=== PATIENT | female | born 1975 | race Caucasian/White ===

== ENCOUNTER 2016-10-05 17:58 | Emergency (ER) | payer MEDICARE ==
[2016-10-05 18:38] VITALS: BP 121/32
--- NOTE | 2016-10-05 19:18 | XRay Report ---
FINAL REPORT EXAM: XR HAND 3 RT HISTORY: finger 2,3,4 injury COMPARISONS: None. FINDINGS: Three views right hand No bone lesion, periosteal reaction, or fracture. No deformity or gross malalignment. There is soft tissue swelling in the index, middle and ring fingers of the right hand. No significant joint space abnormality. IMPRESSION: No displaced fracture in the right hand. Soft tissue swelling in the fingers of interest, as detailed above.
[2016-10-05] MEDS ORDERED: NORCO 5/325 PO ONE (21:12)
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
== END 2016-10-05 21:35 | disposition home or self-care (01) ==
LOC: ED 17:58
DX: S66.911A Strain of unspecified muscle, fascia and tendon at wrist and hand level, right hand, initial encounter (principal); S69.91XA Unspecified injury of right wrist, hand and finger(s), initial encounter; I10 Essential (primary) hypertension; E11.9 Type 2 diabetes mellitus without complications; I50.9 Heart failure, unspecified; J45.909 Unspecified asthma, uncomplicated; Z86.73 Personal history of transient ischemic attack (TIA), and cerebral infarction without residual deficits; F17.200 Nicotine dependence, unspecified, uncomplicated; Z91.040 Latex allergy status; Z88.8 Allergy status to other drugs, medicaments and biological substances; Z79.82 Long term (current) use of aspirin; X58.XXXA Exposure to other specified factors, initial encounter; Y93.89 Activity, other specified; Y99.8 Other external cause status; Y92.89 Other specified places as the place of occurrence of the external cause

== ENCOUNTER 2017-05-03 11:50 | Inpatient (IN) | payer MEDICARE ==
--- NOTE | 2017-05-03 12:43 | XRay Report ---
AP chest x-ray. History: Cough. Findings: The heart and lungs reveal no acute or significant abnormalities. Cardiac pacemaker is noted.
[2017-05-03 12:49] LABS: Hematocrit 42.7 % (30.3-42.9); Hemoglobin 14.4 gm/dl (10.1-14.3); Mean Corpuscular HGB Conc 34 % (30-34); Mean Corpuscular Hemoglobin 31 pg (28-32); Mean Corpuscular Volume 91 fl (79-97); Platelet Count 241 K/mm3 (140-440); Red Blood Count 4.68 M/mm3 (3.65-5.03); Red Cell Distribution Width 13.5 % (13.2-15.2); White Blood Count 13.3 K/mm3 (4.5-11.0)
[2017-05-03 12:53] LABS: Creatine Kinase MB 2.1 ng/mL (0.0-4.0)
[2017-05-03 12:55] LABS: Alanine Aminotransferase 37 units/L (7-56); Albumin 4.3 g/dL (3.9-5); Albumin/Globulin Ratio 1.4 %; Alkaline Phosphatase 65 units/L (35-129); Anion Gap 24 mmol/L; BUN/Creatinine Ratio 29; Blood Urea Nitrogen 44 mg/dL (7-17); Calcium 9.6 mg/dL (8.4-10.2); Carbon Dioxide 20 mmol/L (22-30); Chloride 93.5 mmol/L (98-107); Creatine Kinase 150 units/L (30-135); Glucose 132 mg/dL (65-100); Sodium 132 mmol/L (137-145); Total Protein 7.3 g/dL (6.3-8.2)
[2017-05-03 12:58] LABS: INR 0.95 (0.87-1.13)
[2017-05-03 12:59] LABS: Partial Thromboplastin Time 24.7 Sec. (24.2-36.6)
[2017-05-03] MEDS ORDERED: NACL 0.9% 500 ML 500 ML IV ONE (13:50)
[2017-05-03] MEDS ORDERED: ULTRAM PO ONE (13:50)
[2017-05-03 14:08] LABS: Basophils % (Manual) 0 % (0.0-1.8); Blastocytes % (Manual) 0 %; RBC Morphology Normal
[2017-05-03 14:09] LABS: Diff Status Complete
--- NOTE | 2017-05-03 14:36 | Emergency Department Report ---
- General Chief complaint: Weakness Stated complaint: LOW B/P Time Seen by Provider: 05/03/17 12:16 Source: patient, old records reviewed (cath 04/2016 dilated cardiomyopathy. EF 20-25%, coronary artery) Mode of arrival: Ambulatory Limitations: No Limitations - History of Present Illness Initial comments: 41-year-old female with a past medical history of asthma, COPD, CHF, CVA, diabetes, hypertension, dialated cardiomyopathy, AICD placement presents to the Hospital complains of low blood pressure. Patient is scheduled visit with her primary care doctor. Her blood pressure was in the 60s/40s in the office and patient complain of feeling lightheaded, fatigue and just wanting to go to sleep. Upon manual recheck there was no change the patient was sent to the ER for evaluation. Patient states she's been having fatigue for a day or 2. She complains of ongoing rectal pain secondary to chronic internal hemorrhoids and has been evaluated by GI. Yesterday patient developed a runny nose and a mild cough and developed a fever blister. No documented fever at home. Decreased appetite today but denies nausea, vomiting, diarrhea, or melena. Some mild bright red blood per rectum with bowel movements. 3 episodes of diarrhea for the last several days. Patient did take her blood pressure medication this morning. PMD: DR Hoffmann - Related Data Home Medications Medication Instructions Recorded Confirmed Last Taken Digoxin 250 mcg PO DAILY 12/21/13 03/13/17 04/19/16 .25mg Enalapril Maleate (Nf) 1 tab PO DAILY 10/29/14 03/13/17 04/20/16 08:00 10mg Carvedilol [Coreg] 25 mg PO BID 03/03/15 03/13/17 04/19/16 25mg Spironolactone [Aldactone] 50 mg PO QDAY 03/03/15 03/13/17 04/19/16 50mg Fenofibrate,Micronized 134 mg PO DAILY 04/20/16 03/13/17 04/19/16 [Fenofibrate] 134mg Torsemide 20 mg PO DAILY 04/20/16 03/13/17 04/19/16 20mg Previous Rx's Medication Instructions Recorded Last Taken Type ALBUTEROL Inhaler [ProAir HFA 2 puff IH QID PRN #1 inhalation 03/14/17 Unknown Rx Inhaler] Acetaminophen/Codeine [Tylenol 1 tab PO Q6H PRN #12 tab 03/14/17 Unknown Rx /Codeine # 3 tab] Azithromycin [Zithromax TAB] 250 mg PO QDAY #4 tablet 03/14/17 Unknown Rx Prednisone [predniSONE 5 mg (6-Day 5 mg PO .TAPER #1 tab.ds.pk 03/14/17 Unknown Rx Pack, 21 Tabs)] Rosuvastatin (Nf) [Crestor] 40 mg PO DAILY 30 Days tablet 03/14/17 Unknown Rx Allergies Allergy/AdvReac Type Severity Reaction Status Date / Time latex Allergy Hives Verified 05/16/15 01:08 naproxen sodium [From Aleve] Allergy Hives Verified 05/16/15 01:08 ED Review of Systems ROS: Stated complaint: LOW B/P Other details as noted in HPI Comment: All other systems reviewed and negative Other: Constitutional: as per hip Eyes: No eye pain visual changes ENT: No ear pain or throat pain Neck: Denies pain Respiratory: Denies wheezing shortness of breath Cardiovascular: Denies chest pain, palpitations, syncope GI: Denies abdominal pain, nausea, vomiting, diarrhea : Denies dysuria Musculoskeletal: Denies back pain Skin: Denies rash, lesions, erythema Neurologic: Denies headache, numbness, focal weakness Psychiatric: Denies suicidal ideation, hallucinations ED Past Medical Hx - Past Medical History Previous Medical History?: Yes Hx Hypertension: Yes (controlled with meds) Hx CVA: Yes Hx Heart Attack/AMI: No Hx Congestive Heart Failure: Yes Hx Diabetes: Yes Hx Deep Vein Thrombosis: No Hx Pulmonary Embolism: No Hx GERD: No Hx Liver Disease: No Hx Sickle Cell Disease: No Hx Arthritis: No Hx Headaches / Migraines: No Hx Seizures: No Hx Kidney Stones: No Hx Psychiatric Treatment: No Hx Asthma: Yes (no inhaler use) Hx COPD: No Hx Tuberculosis: No Hx Dementia: No Hx HIV: No Additional medical history: 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 pre- eclampsia - Surgical History Hx Coronary Stent: No Hx Open Heart Surgery: No Hx Pacemaker: Yes (2013. cardiomyapathy) Hx Internal Defibrillator: No Hx Cholecystectomy: No Hx Appendectomy: Yes Hx Breast Surgery: No Additional Surgical History: hysterectomy, AICD - Social History Smoking Status: Never Smoker - Medications Home Medications: Home Medications Medication Instructions Recorded Confirmed Last Taken Type Digoxin 250 mcg PO DAILY 12/21/13 03/13/17 04/19/16 History .25mg Enalapril Maleate (Nf) 1 tab PO DAILY 10/29/14 03/13/17 04/20/16 08:00 History 10mg Carvedilol [Coreg] 25 mg PO BID 03/03/15 03/13/17 04/19/16 History 25mg Spironolactone [Aldactone] 50 mg PO QDAY 03/03/15 03/13/17 04/19/16 History 50mg Fenofibrate,Micronized 134 mg PO DAILY 04/20/16 03/13/17 04/19/16 History [Fenofibrate] 134mg Torsemide 20 mg PO DAILY 04/20/16 03/13/17 04/19/16 History 20mg ALBUTEROL Inhaler [ProAir HFA 2 puff IH QID PRN #1 inhalation 03/14/17 Unknown Rx Inhaler] Acetaminophen/Codeine [Tylenol 1 tab PO Q6H PRN #12 tab 03/14/17 Unknown Rx /Codeine # 3 tab] Azithromycin [Zithromax TAB] 250 mg PO QDAY #4 tablet 03/14/17 Unknown Rx Prednisone [predniSONE 5 mg (6-Day 5 mg PO .TAPER #1 tab.ds.pk 03/14/17 Unknown Rx Pack, 21 Tabs)] Rosuvastatin (Nf) [Crestor] 40 mg PO DAILY 30 Days tablet 03/14/17 Unknown Rx ED Physical Exam - General Limitations: No Limitations - Other Other exam information: General: No limitations, patient is alert in no acute distress Head exam: Atraumatic, normocephalic Eyes exam: Normal appearance ENT: Moist mucous membrane, normal oropharynx Neck exam: Normal inspection, full range of motion, no meningismus nontender Respiratory exam: Clear to auscultation bilateral, no wheezes, rales, crackles Cardiovascular: Normal rate and rhythm, normal heart sounds Abdomen: Soft, nondistended, and nontender, with normal bowel sounds, no rebound, or guarding Extremity: Full range of motion normal inspection no deformity Back: Normal Inspection, full range of motion, no tenderness Neurologic: Alert, oriented x3, cranial nerves intact, no motor or sensory deficit Psychiatric: normal affect, normal mood Skin: Warm, dry, intact ED Course Vital Signs 12/15/17 11:57 Temperature 97.6 F Pulse Rate 84 Respiratory 18 Rate Blood Pressure 93/49 O2 Sat by Pulse 97 Oximetry - Reevaluation(s) Reevaluation #1: 05/03/17 14:41 Patient continues to be uncomfortable due to rectal pain. Tramadol ordered. Patient does have some renal sufficiency with dehydration. 5 mL fluid ordered at 200 mL per hour - Consultations Consultation #1: 05/03/17 14:[address] Hoffmann The patient's pressure was in the 60s and he office and she was very sleepy. Her rectal pain is chronic and she has had GI evaluation for pain with defecation. Patient states she has a diagnosis of internal hemorrhoids ED Medical Decision Making - Lab Data Result diagrams: 05/03/17 12:11 05/03/17 12:11 Lab Results 05/03/17 05/03/17 05/03/17 Range/Units 12:11 12:11 12:11 WBC 13.3 H (4.5-11.0) K/mm3 RBC 4.68 (3.65-5.03) M/mm3 Hgb 14.4 H (10.1-14.3) gm/dl Hct 42.7 (30.3-42.9) % MCV 91 (79-97) fl MCH 31 (28-32) pg MCHC 34 (30-34) % RDW 13.5 (13.2-15.2) % Plt Count 241 (140-440) K/mm3 Lymph # Facilities Maintenance Worker Add Manual Diff Complete Total Counted 100 Seg Neuts % (Manual) 69.0 (40.0-70.0) % Band Neutrophils % 0 % Lymphocytes % (Manual) 24.0 (13.4-35.0) % Reactive Lymphs % (Man) 0 % Monocytes % (Manual) 4.0 (0.0-7.3) % Eosinophils % (Manual) 3.0 (0.0-4.3) % Basophils % (Manual) 0 (0.0-1.8) % Metamyelocytes % 0 % Myelocytes % 0 % Promyelocytes % 0 % Blast Cells % 0 % Nucleated RBC % Not Reportable Seg Neutrophils # Man 9.2 H (1.8-7.7) K/mm3 Band Neutrophils # 0.0 K/mm3 Lymphocytes # (Manual) 3.2 (1.2-5.4) K/mm3 Abs React Lymphs (Man) 0.0 K/mm3 Monocytes # (Manual) 0.5 (0.0-0.8) K/mm3 Eosinophils # (Manual) 0.4 (0.0-0.4) K/mm3 Basophils # (Manual) 0.0 (0.0-0.1) K/mm3 Metamyelocytes # 0.0 K/mm3 Myelocytes # 0.0 K/mm3 Promyelocytes # 0.0 K/mm3 Blast Cells # 0.0 K/mm3 WBC Morphology Not Reportable Hypersegmented Neuts Not Reportable Hyposegmented Neuts Not Reportable Hypogranular Neuts Not Reportable Smudge Cells Not Reportable Toxic Granulation Not Reportable Toxic Vacuolation Not Reportable Dohle Bodies Not Reportable Pelger-Huet Anomaly Not Reportable Florin Rods Not Reportable Platelet Estimate Appears normal Clumped Platelets Not Reportable Plt Clumps, EDTA Not Reportable Large Platelets Not Reportable Giant Platelets Not Reportable Platelet Satelliting Not Reportable Plt Morphology Comment Not Reportable RBC Morphology Normal Dimorphic RBCs Not Reportable Polychromasia Not Reportable Hypochromasia Not Reportable Poikilocytosis Not Reportable Anisocytosis Not Reportable Microcytosis Not Reportable Macrocytosis Not Reportable Spherocytes Not Reportable Pappenheimer Bodies Not Reportable Sickle Cells Not Reportable Target Cells Not Reportable Tear Drop Cells Not Reportable Ovalocytes Not Reportable Helmet Cells Not Reportable Merlos-[place] Bodies Not Reportable [place] Rings Not Reportable Carla Cells Not Reportable Bite Cells Not Reportable Crenated Cell Not Reportable Elliptocytes Not Reportable Acanthocytes (Spur) Not Reportable Rouleaux Not Reportable Hemoglobin C Crystals Not Reportable Schistocytes Not Reportable Malaria parasites Not Reportable [place] Bodies Not Reportable Hem Pathologist Commnt No PT 13.2 (12.2-14.9) Sec. INR 0.95 (0.87-1.13) APTT 24.7 (24.2-36.6) Sec. VBG pH (7.320-7.420) Sodium 132 L (137-145) mmol/L Potassium 5.0 (3.6-5.0) mmol/L Chloride 93.5 L (98-107) mmol/L Carbon Dioxide 20 L (22-30) mmol/L Anion Gap 24 mmol/L BUN 44 H (7-17) mg/dL Creatinine 1.5 H (0.7-1.2) mg/dL Estimated GFR 39 ml/min BUN/Creatinine Ratio 29 % Glucose 132 H (65-100) mg/dL Lactic Acid (0.7-2.0) mmol/L Calcium 9.6 (8.4-10.2) mg/dL Total Bilirubin 0.50 (0.1-1.2) mg/dL AST 27 (5-40) units/L ALT 37 (7-56) units/L Alkaline Phosphatase 65 (35-129) units/L Total Creatine Kinase 150 H (30-135) units/L CK-MB (CK-2) 2.1 (0.0-4.0) ng/mL CK-MB (CK-2) Rel Index 1.4 (0-4) Troponin T < 0.010 (0.00-0.029) ng/mL Total Protein 7.3 (6.3-8.2) g/dL Albumin 4.3 (3.9-5) g/dL Albumin/Globulin Ratio 1.4 % Digoxin (0.9-2.0) ng/mL Blood Type Antibody Screen 05/03/17 05/03/17 05/03/17 Range/Units 12:11 12:11 12:23 WBC (4.5-11.0) K/mm3 RBC (3.65-5.03) M/mm3 Hgb (10.1-14.3) gm/dl Hct (30.3-42.9) % MCV (79-97) fl MCH (28-32) pg MCHC (30-34) % RDW (13.2-15.2) % Plt Count (140-440) K/mm3 Lymph # Add Manual Diff Total Counted Seg Neuts % (Manual) (40.0-70.0) % Band Neutrophils % % Lymphocytes % (Manual) (13.4-35.0) % Reactive Lymphs % (Man) % Monocytes % (Manual) (0.0-7.3) % Eosinophils % (Manual) (0.0-4.3) % Basophils % (Manual) (0.0-1.8) % Metamyelocytes % % Myelocytes % % Promyelocytes % % Blast Cells % % Nucleated RBC % Seg Neutrophils # Man (1.8-7.7) K/mm3 Band Neutrophils # K/mm3 Lymphocytes # (Manual) (1.2-5.4) K/mm3 Abs React Lymphs (Man) K/mm3 Monocytes # (Manual) (0.0-0.8) K/mm3 Eosinophils # (Manual) (0.0-0.4) K/mm3 Basophils # (Manual) (0.0-0.1) K/mm3 Metamyelocytes # K/mm3 Myelocytes # K/mm3 Promyelocytes # K/mm3 Blast Cells # K/mm3 WBC Morphology Hypersegmented Neuts Hyposegmented Neuts Hypogranular Neuts Smudge Cells Toxic Granulation Toxic Vacuolation Dohle Bodies Pelger-Huet Anomaly Florin Rods Platelet Estimate Clumped Platelets Plt Clumps, EDTA Large Platelets Giant Platelets Platelet Satelliting Plt Morphology Comment RBC Morphology Dimorphic RBCs Polychromasia Hypochromasia Poikilocytosis Anisocytosis Microcytosis Macrocytosis Spherocytes Pappenheimer Bodies Sickle Cells Target Cells Tear Drop Cells Ovalocytes Helmet Cells Merlos-[place] Bodies [place] Rings Carla Cells Bite Cells Crenated Cell Elliptocytes Acanthocytes (Spur) Rouleaux Hemoglobin C Crystals Schistocytes Malaria parasites [place]w Bodies Hem Pathologist Commnt PT (12.2-14.9) Sec. INR (0.87-1.13) APTT (24.2-36.6) Sec. VBG pH 7.397 (7.320-7.420) Sodium (137-145) mmol/L Potassium (3.6-5.0) mmol/L Chloride (98-107) mmol/L Carbon Dioxide (22-30) mmol/L Anion Gap mmol/L BUN (7-17) mg/dL Creatinine (0.7-1.2) mg/dL Estimated GFR ml/min BUN/Creatinine Ratio % Glucose (65-100) mg/dL Lactic Acid 1.70 (0.7-2.0) mmol/L Calcium (8.4-10.2) mg/dL Total Bilirubin (0.1-1.2) mg/dL AST (5-40) units/L ALT (7-56) units/L Alkaline Phosphatase (35-129) units/L Total Creatine Kinase (30-135) units/L CK-MB (CK-2) (0.0-4.0) ng/mL CK-MB (CK-2) Rel Index (0-4) Troponin T (0.00-0.029) ng/mL Total Protein (6.3-8.2) g/dL Albumin (3.9-5) g/dL Albumin/Globulin Ratio % Digoxin 1.9 (0.9-2.0) ng/mL Blood Type Antibody Screen 05/03/17 Range/Units 12:23 WBC (4.5-11.0) K/mm3 RBC (3.65-5.03) M/mm3 Hgb (10.1-14.3) gm/dl Hct (30.3-42.9) % MCV (79-97) fl MCH (28-32) pg MCHC (30-34) % RDW (13.2-15.2) % Plt Count (140-440) K/mm3 Lymph # Add Manual Diff Total Counted Seg Neuts % (Manual) (40.0-70.0) % Band Neutrophils % % Lymphocytes % (Manual) (13.4-35.0) % Reactive Lymphs % (Man) % Monocytes % (Manual) (0.0-7.3) % Eosinophils % (Manual) (0.0-4.3) % Basophils % (Manual) (0.0-1.8) % Metamyelocytes % % Myelocytes % % Promyelocytes % % Blast Cells % % Nucleated RBC % Seg Neutrophils # Man (1.8-7.7) K/mm3 Band Neutrophils # K/mm3 Lymphocytes # (Manual) (1.2-5.4) K/mm3 Abs React Lymphs (Man) K/mm3 Monocytes # (Manual) (0.0-0.8) K/mm3 Eosinophils # (Manual) (0.0-0.4) K/mm3 Basophils # (Manual) (0.0-0.1) K/mm3 Metamyelocytes # K/mm3 Myelocytes # K/mm3 Promyelocytes # K/mm3 Blast Cells # K/mm3 WBC Morphology Hypersegmented Neuts Hyposegmented Neuts Hypogranular Neuts Smudge Cells Toxic Granulation Toxic Vacuolation Dohle Bodies Pelger-Huet Anomaly Florin Rods Platelet Estimate Clumped Platelets Plt Clumps, EDTA Large Platelets Giant Platelets Platelet Satelliting Plt Morphology Comment RBC Morphology Dimorphic RBCs Polychromasia Hypochromasia Poikilocytosis Anisocytosis Microcytosis Macrocytosis Spherocytes Pappenheimer Bodies Sickle Cells Target Cells Tear Drop Cells Ovalocytes Helmet Cells Merlos-[place] Bodies [place] Rings Carla Cells Bite Cells Crenated Cell Elliptocytes Acanthocytes (Spur) Rouleaux Hemoglobin C Crystals Schistocytes Malaria parasites [place]w Bodies Hem Pathologist Commnt PT (12.2-14.9) Sec. INR (0.87-1.13) APTT (24.2-36.6) Sec. VBG pH (7.320-7.420) Sodium (137-145) mmol/L Potassium (3.6-5.0) mmol/L Chloride (98-107) mmol/L Carbon Dioxide (22-30) mmol/L Anion Gap mmol/L BUN (7-17) mg/dL Creatinine (0.7-1.2) mg/dL Estimated GFR ml/min BUN/Creatinine Ratio % Glucose (65-100) mg/dL Lactic Acid (0.7-2.0) mmol/L Calcium (8.4-10.2) mg/dL Total Bilirubin (0.1-1.2) mg/dL AST (5-40) units/L ALT (7-56) units/L Alkaline Phosphatase (35-129) units/L Total Creatine Kinase (30-135) units/L CK-MB (CK-2) (0.0-4.0) ng/mL CK-MB (CK-2) Rel Index (0-4) Troponin T (0.00-0.029) ng/mL Total Protein (6.3-8.2) g/dL Albumin (3.9-5) g/dL Albumin/Globulin Ratio % Digoxin (0.9-2.0) ng/mL Blood Type A POSITIVE Antibody Screen Negative - EKG Data -: EKG Interpreted by Me (atraial sensed vent pacer rhythm ) EKG shows normal: sinus rhythm, axis (-47), QRS complexes (174), ST-T waves (no stemi/t inv) - EKG Data When compared to previous EKG there are: no significant change - Radiology Data Radiology results: report reviewed Chest x-ray: Heart and lungs no acute findings. Cardiac pacemaker is noted - Medical Decision Making Cause of hypotension unknown. Plan to admit patient to the hospital for gentle hydration given a history of diabetic cardiomyopathy with poor ejection fraction Case discussed with patient's primary care provider - Differential Diagnosis sepsis, heart failure, anemia, dehydration Critical Care Time: No Critical care attestation.: If time is entered above; I have spent that time in minutes in the direct care of this critically ill patient, excluding procedure time. ED Disposition Clinical Impression: Hypotension, Dilated cardiomyopathy, AICD (automatic cardioverter/defibrillator ) present, Acute renal insufficiency, Renal insufficiency Disposition: 09 OP ADMIT IP TO THIS HOSP Is pt being admited?: Yes Condition: Stable Time of Disposition: 14:58 (dr montgomery/hosp)
[2017-05-03 16:09] LABS: Bacteria,Urine 1+ /HPF (Negative); Bilirubin,Urine NEG (Negative); Blood,Urine NEG (Negative); Ketones,Urine NEG (Negative); Leukocyte Esterase,Urine NEG (Negative); Mucus,Urine FEW /HPF; Nitrite,Urine NEG (Negative); Protein,Urine <15 mg/dL mg/dL (Negative); Urobilinogen,Urine < 2.0 mg/dL (<2.0)
[2017-05-03] MEDS ORDERED: MORPHINE ONE (18:29)
[2017-05-03] MEDS ORDERED: MORPHINE IV ONE (18:32)
[2017-05-03] MEDS ORDERED: TYLENOL PO PRN (18:59)
[2017-05-03] MEDS ORDERED: DULCOLAX PR PRN (18:59)
[2017-05-03] MEDS ORDERED: MILK OF MAGNESIA PO PRN (18:59)
--- NOTE | 2017-05-03 18:59 | History and Physical Report ---
History of Present Illness Date of examination: 05/03/17 Date of admission: 05/03/17 14:59 Chief complaint: CC Feels weak and Light headed since AM History of present illness: ANDREAFSKI :41 y/o female with HTN and cardiomypopathy comes in for feeling Light headed.Patient was found to have low BP in 60's No SOB. No fever or chills.Compliant with Meds. Past History Past Medical History: heart failure, hypertension, hyperlipidemia Past Surgical History: Other (Pacemaker and AICD) Social history: no significant social history, full code Medications and Allergies Allergies Allergy/AdvReac Type Severity Reaction Status Date / Time latex Allergy Hives Verified 05/16/15 01:08 naproxen sodium [From Aleve] Allergy Hives Verified 05/16/15 01:08 Home Medications Medication Instructions Recorded Confirmed Last Taken Type Digoxin 250 mcg PO DAILY 12/21/13 05/03/17 05/03/17 History Enalapril Maleate (Nf) 1 tab PO DAILY 10/29/14 05/03/17 05/03/17 History Carvedilol [Coreg] 25 mg PO BID 03/03/15 05/03/17 05/03/17 History Spironolactone [Aldactone] 50 mg PO QDAY 03/03/15 05/03/17 05/03/17 History Fenofibrate,Micronized 134 mg PO DAILY 04/20/16 05/03/17 05/03/17 History [Fenofibrate] Torsemide 20 mg PO DAILY 04/20/16 05/03/17 05/03/17 History ALBUTEROL Inhaler [ProAir HFA 2 puff IH QID PRN #1 inhalation 03/14/17 05/03/17 05/03/17 Rx Inhaler] Acetaminophen/Codeine [Tylenol 1 tab PO Q6H PRN #12 tab 03/14/17 05/03/17 Unknown Rx /Codeine # 3 tab] Prednisone [predniSONE 5 mg (6-Day 5 mg PO .TAPER #1 tab.ds.pk 03/14/1705/03/17 Rx Pack, 21 Tabs)] Rosuvastatin (Nf) [Crestor] 40 mg PO DAILY 30 Days tablet 03/14/17 05/03/17 Rx Review of Systems All systems: negative Exam - Constitutional Vitals: Temp Pulse Resp BP Pulse Ox 97.6 F 73 11 L 82/43 92 05/03/17 11:57 05/03/17 16:30 05/03/17 16:30 05/03/17 16:30 05/03/17 16:30 General appearance: Present: no acute distress, mild distress, well-nourished - EENT Eyes: Present: PERRL ENT: hearing intact, clear oral mucosa - Neck Neck: Present: supple, normal ROM - Respiratory Respiratory effort: normal Respiratory: bilateral: CTA - Cardiovascular Heart Sounds: Present: S1 & S2. Absent: rub, click - Extremities Extremities: pulses symmetrical, No edema Peripheral Pulses: within normal limits - Abdominal General gastrointestinal: Present: soft, non-tender, non-distended, normal bowel sounds Female genitourinary: Present: normal - Integumentary Integumentary: Present: clear, warm, dry - Musculoskeletal Musculoskeletal: gait normal, strength equal bilaterally - Psychiatric Psychiatric: appropriate mood/affect, intact judgment & insight - Neurologic Neurologic: CNII-XII intact, moves all extremities Results - Labs CBC & Chem 7: 05/04/17 04:27 05/04/17 04:27 Labs: Laboratory Last Values WBC 13.3 K/mm3 (4.5-11.0) H 05/03/17 12:11 RBC 4.68 M/mm3 (3.65-5.03) 05/03/17 12:11 Hgb 14.4 gm/dl (10.1-14.3) H 05/03/17 12:11 Hct 42.7 % (30.3-42.9) 05/03/17 12:11 MCV 91 fl (79-97) 05/03/17 12:11 MCH 31 pg (28-32) 05/03/17 12:11 MCHC 34 % (30-34) 05/03/17 12:11 RDW 13.5 % (13.2-15.2) 05/03/17 12:11 Plt Count 241 K/mm3 (140-440) 05/03/17 12:11 Lymph # Lapel Padder Blindstitch 05/03/17 12:11 Add Manual Diff Complete 05/03/17 12:11 Total Counted 100 05/03/17 12:11 Seg Neuts % (Manual) 69.0 % (40.0-70.0) 05/03/17 12:11 Band Neutrophils % 0 % 05/03/17 12:11 Lymphocytes % (Manual) 24.0 % (13.4-35.0) 05/03/17 12:11 Reactive Lymphs % (Man) 0 % 05/03/17 12:11 Monocytes % (Manual) 4.0 % (0.0-7.3) 05/03/17 12:11 Eosinophils % (Manual) 3.0 % (0.0-4.3) 05/03/17 12:11 Basophils % (Manual) 0 % (0.0-1.8) 05/03/17 12:11 Metamyelocytes % 0 % 05/03/17 12:11 Myelocytes % 0 % 05/03/17 12:11 Promyelocytes % 0 % 05/03/17 12:11 Blast Cells % 0 % 05/03/17 12:11 Nucleated RBC % Not Reportable 05/03/17 12:11 Seg Neutrophils # Man 9.2 K/mm3 (1.8-7.7) H 05/03/17 12:11 Band Neutrophils # 0.0 K/mm3 05/03/17 12:11 Lymphocytes # (Manual) 3.2 K/mm3 (1.2-5.4) 05/03/17 12:11 Abs React Lymphs (Man) 0.0 K/mm3 05/03/17 12:11 Monocytes # (Manual) 0.5 K/mm3 (0.0-0.8) 05/03/17 12:11 Eosinophils # (Manual) 0.4 K/mm3 (0.0-0.4) 05/03/17 12:11 Basophils # (Manual) 0.0 K/mm3 (0.0-0.1) 05/03/17 12:11 Metamyelocytes # 0.0 K/mm3 05/03/17 12:11 Myelocytes # 0.0 K/mm3 05/03/17 12:11 Promyelocytes # 0.0 K/mm3 05/03/17 12:11 Blast Cells # 0.0 K/mm3 05/03/17 12:11 WBC Morphology Not Reportable 05/03/17 12:11 Hypersegmented Neuts Not Reportable 05/03/17 12:11 Hyposegmented Neuts Not Reportable 05/03/17 12:11 Hypogranular Neuts Not Reportable 05/03/17 12:11 Smudge Cells Not Reportable 05/03/17 12:11 Toxic Granulation Not Reportable 05/03/17 12:11 Toxic Vacuolation Not Reportable 05/03/17 12:11 Dohle Bodies Not Reportable 05/03/17 12:11 Pelger-Huet Anomaly Not Reportable 05/03/17 12:11 Florin Rods Not Reportable 05/03/17 12:11 Platelet Estimate Appears normal 05/03/17 12:11 Clumped Platelets Not Reportable 05/03/17 12:11 Plt Clumps, EDTA Not Reportable 05/03/17 12:11 Large Platelets Not Reportable 05/03/17 12:11 Giant Platelets Not Reportable 05/03/17 12:11 Platelet Satelliting Not Reportable 05/03/17 12:11 Plt Morphology Comment Not Reportable 05/03/17 12:11 RBC Morphology Normal 05/03/17 12:11 Dimorphic RBCs Not Reportable 05/03/17 12:11 Polychromasia Not Reportable 05/03/17 12:11 Hypochromasia Not Reportable 05/03/17 12:11 Poikilocytosis Not Reportable 05/03/17 12:11 Anisocytosis Not Reportable 05/03/17 12:11 Microcytosis Not Reportable 05/03/17 12:11 Macrocytosis Not Reportable 05/03/17 12:11 Spherocytes Not Reportable 05/03/17 12:11 Pappenheimer Bodies Not Reportable 05/03/17 12:11 Sickle Cells Not Reportable 05/03/17 12:11 Target Cells Not Reportable 05/03/17 12:11 Tear Drop Cells Not Reportable 05/03/17 12:11 Ovalocytes Not Reportable 05/03/17 12:11 Helmet Cells Not Reportable 05/03/17 12:11 Merlos-Topton Bodies Not Reportable 05/03/17 12:11 [place] Rings Not Reportable 05/03/17 12:11 Carla Cells Not Reportable 05/03/17 12:11 Bite Cells Not Reportable 05/03/17 12:11 Crenated Cell Not Reportable 05/03/17 12:11 Elliptocytes Not Reportable 05/03/17 12:11 Acanthocytes (Spur) Not Reportable 05/03/17 12:11 Rouleaux Not Reportable 05/03/17 12:11 Hemoglobin C Crystals Not Reportable 05/03/17 12:11 Schistocytes Not Reportable 05/03/17 12:11 Malaria parasites Not Reportable 05/03/17 12:11 Getachew Bodies Not Reportable 05/03/17 12:11 Hem Pathologist Commnt No 05/03/17 12:11 PT 13.2 Sec. (12.2-14.9) 05/03/17 12:11 INR 0.95 (0.87-1.13) 05/03/17 12:11 APTT 24.7 Sec. (24.2-36.6) 05/03/17 12:11 VBG pH 7.397 (7.320-7.420) 05/03/17 12:11 Sodium 132 mmol/L (137-145) L 05/03/17 12:11 Potassium 5.0 mmol/L (3.6-5.0) 05/03/17 12:11 Chloride 93.5 mmol/L (98-107) L 05/03/17 12:11 Carbon Dioxide 20 mmol/L (22-30) L 05/03/17 12:11 Anion Gap 24 mmol/L 05/03/17 12:11 BUN 44 mg/dL (7-17) H 05/03/17 12:11 Creatinine 1.5 mg/dL (0.7-1.2) H 05/03/17 12:11 Estimated GFR 39 ml/min 05/03/17 12:11 BUN/Creatinine Ratio 29 % 05/03/17 12:11 Glucose 132 mg/dL (65-100) H 05/03/17 12:11 Lactic Acid 1.50 mmol/L (0.7-2.0) 05/03/17 14:35 Calcium 9.6 mg/dL (8.4-10.2) 05/03/17 12:11 Total Bilirubin 0.50 mg/dL (0.1-1.2) 05/03/17 12:11 AST 27 units/L (5-40) 05/03/17 12:11 ALT 37 units/L (7-56) 05/03/17 12:11 Alkaline Phosphatase 65 units/L (35-129) 05/03/17 12:11 Total Creatine Kinase 150 units/L (30-135) H 05/03/17 12:11 CK-MB (CK-2) 2.1 ng/mL (0.0-4.0) 05/03/17 12:11 CK-MB (CK-2) Rel Index 1.4 (0-4) 05/03/17 12:11 Troponin T < 0.010 ng/mL (0.00-0.029) 05/03/17 12:11 Total Protein 7.3 g/dL (6.3-8.2) 05/03/17 12:11 Albumin 4.3 g/dL (3.9-5) 05/03/17 12:11 Albumin/Globulin Ratio 1.4 % 05/03/17 12:11 Urine Color Yellow (Yellow) 05/03/17 15:58 Urine Turbidity Clear (Clear) 05/03/17 15:58 Urine pH 5.0 (5.0-7.0) 05/03/17 15:58 Ur Specific [place] 1.010 (1.003-1.030) 05/03/17 15:58 Urine Protein <15 mg/dl mg/dL (Negative) 05/03/17 15:58 Urine Glucose (UA) Neg mg/dL (Negative) 05/03/17 15:58 Urine Ketones Neg mg/dL (Negative) 05/03/17 15:58 Urine Blood Neg (Negative) 05/03/17 15:58 Urine Nitrite Neg (Negative) 05/03/17 15:58 Urine Bilirubin Neg (Negative) 05/03/17 15:58 Urine Urobilinogen < 2.0 mg/dL (<2.0) 05/03/17 15:58 Ur Leukocyte Esterase Neg (Negative) 05/03/17 15:58 Urine WBC (Auto) 2.0 /HPF (0.0-6.0) 05/03/17 15:58 Urine RBC (Auto) 2.0 /HPF (0.0-6.0) 05/03/17 15:58 U Epithel Cells (Auto) 6.0 /HPF (0-13.0) 05/03/17 15:58 Urine Bacteria (Auto) 1+ /HPF (Negative) 05/03/17 15:58 Urine Mucus Few /HPF 05/03/17 15:58 Digoxin 1.9 ng/mL (0.9-2.0) 05/03/17 12:23 Blood Type A POSITIVE 05/03/17 12:23 Antibody Screen Negative 05/03/17 12:23 - Imaging and Cardiology EKG: report reviewed Chest x-ray: report reviewed Assessment and Plan Advance Directives: Yes (Full code) VTE prophylaxis?: Chemical Plan of care discussed with patient/family: Yes - Patient Problems (1) Hypotension Current Visit: Yes Status: Acute Qualifiers: Hypotension type: hypotension due to drug Qualified Code(s): I95.2 - Hypotension due to drugs Plan to address problem: Will hold antihypertensives (2) JERI (acute kidney injury) Current Visit: Yes Status: Acute Plan to address problem: Neph consult (3) Dilated cardiomyopathy Current Visit: Yes Status: Chronic Plan to address problem: Cont Lasix ECHO (4) T2DM (type 2 diabetes mellitus) Current Visit: Yes Status: Acute Qualifiers: Diabetes mellitus complication status: without complication Plan to address problem: New onset A1c 9.4 Initiated on Glimepride (5) DVT prophylaxis Current Visit: Yes Status: Acute Plan to address problem: Lovenox
[2017-05-03] MEDS ORDERED: NACL 0.9% 1000 ML 1,000 ML IV SCH (19:00)
[2017-05-03] MEDS ORDERED: PERCOCET 5/325 PO PRN (19:00)
[2017-05-03] MEDS: PEPCID PO SCH (21:38)
[2017-05-04] MEDS ORDERED: TYLENOL #3 PO PRN (05:33)
[2017-05-04] MEDS ORDERED: PROAIR IH PRN (05:33)
[2017-05-04 05:43] LABS: Basophils % (Auto) 0.3 % (0.0-1.8); Eosinophils % (Auto) 2.5 % (0.0-4.3); Hematocrit 38.5 % (30.3-42.9); Hemoglobin 13.1 gm/dl (10.1-14.3); Mean Corpuscular HGB Conc 34 % (30-34); Mean Corpuscular Hemoglobin 31 pg (28-32); Mean Corpuscular Volume 91 fl (79-97); Platelet Count 193 K/mm3 (140-440); Red Blood Count 4.23 M/mm3 (3.65-5.03); Red Cell Distribution Width 13.3 % (13.2-15.2); White Blood Count 8.6 K/mm3 (4.5-11.0)
[2017-05-04 06:04] LABS: Albumin 3.9 g/dL (3.9-5); Albumin/Globulin Ratio 1.7 %; Bilirubin,Total 0.4 mg/dL (0.1-1.2); Calcium 8.6 mg/dL (8.4-10.2); Chloride 99.8 mmol/L (98-107); Potassium 4.5 mmol/L (3.6-5.0); Total Protein 6.2 g/dL (6.3-8.2)
[2017-05-04] MEDS: ZOFRAN IV PRN ×2 (07:40→23:26)
[2017-05-04] MEDS ORDERED: PROVENTIL IH PRN (08:00)
[2017-05-04] MEDS ORDERED: ALDACTONE PO SCH (10:00)
[2017-05-04] MEDS ORDERED: ZESTRIL PO SCH (10:00)
[2017-05-04] MEDS: DEMADEX PO SCH (10:11)
[2017-05-04] MEDS: COREG PO SCH ×2 (10:12→21:41)
[2017-05-04] MEDS: TRICOR PO SCH (10:12)
[2017-05-04] MEDS: PEPCID PO SCH ×2 (10:13→21:44)
[2017-05-04] MEDS: MORPHINE IV PRN ×3 (10:26→23:26)
[2017-05-04] MEDS: AMARYL PO SCH (10:26)
[2017-05-04] MEDS ORDERED: Fluarix Quad 2017-2018(36 MOS+ IM ONE (12:00)
--- NOTE | 2017-05-04 13:12 | Progress Note ---
Assessment and Plan / Hypotension BP now improved restarted antihypertensives, will readjust dose if BP cont to drop will obtain 2d echo /JERI (acute kidney injury) Neph consulted, Cr was 0.7 on 03/05 may need to hols diuretics if renal function gets worse /Dilated cardiomyopathy Cont diuretics, will follow ECHO /T2DM (type 2 diabetes mellitus) New onset A1c 9.4 Initiated on Glimepride /Morbid obesity dietary and exercise counselling done /DVT prophylaxis Lovenox Physical exam: General appearance: Present: no acute distress, morbidli obese - EENT Eyes: Present: PERRL ENT: hearing intact, clear oral mucosa - Neck Neck: Present: supple, normal ROM - Respiratory Respiratory effort: normal Respiratory: bilateral: CTA - Cardiovascular Heart Sounds: Present: S1 & S2. Absent: rub, click - Extremities Extremities: pulses symmetrical, No edema Peripheral Pulses: within normal limits - Abdominal General gastrointestinal: Present: soft, non-tender, non-distended, normal bowel sounds Female genitourinary: Present: normal - Integumentary Integumentary: Present: clear, warm, dry - Musculoskeletal Musculoskeletal: gait normal, strength equal bilaterally - Psychiatric Psychiatric: appropriate mood/affect, intact judgment & insight - Neurologic Neurologic: CNII-XII intact, moves all extremities Subjective Date of service: 05/04/17 Objective - Constitutional Vitals: Vital Signs - 12hr 05/04/17 05/04/17 05/04/17 04:24 10:12 10:13 Temperature 98.0 F Pulse Rate 85 81 81 Respiratory 19 Rate Blood Pressure 77/29 126/65 126/65 O2 Sat by Pulse 97 Oximetry 05/04/17 05/04/17 10:30 13:05 Temperature Pulse Rate 81 Respiratory Rate Blood Pressure O2 Sat by Pulse 98 Oximetry - Labs CBC & Chem 7: 05/04/17 04:27 05/04/17 04:27 Labs: Abnormal lab results 05/03/17 05/03/17 05/03/17 Range/Units 12:11 12:11 20:39 Gregory % (Auto) (0.0-7.3) % Seg Neutrophils # Man 9.2 H (1.8-7.7) K/mm3 BUN (7-17) mg/dL Creatinine (0.7-1.2) mg/dL Glucose (65-100) mg/dL POC Glucose 203 H (70-105) Hemoglobin A1c 9.4 H (4-6) % Total Protein (6.3-8.2) g/dL 05/04/17 05/04/17 Range/Units 04:27 04:27 Gregory % (Auto) 9.3 H (0.0-7.3) % Seg Neutrophils # Man (1.8-7.7) K/mm3 BUN 43 H (7-17) mg/dL Creatinine 1.5 H (0.7-1.2) mg/dL Glucose 209 H (65-100) mg/dL POC Glucose (70-105) Hemoglobin A1c (4-6) % Total Protein 6.2 L (6.3-8.2) g/dL
[2017-05-04] MEDS: LANOXIN PO SCH (17:55)
[2017-05-04] MEDS: NOVOLOG SUB-Q SCH ×2 (17:58→21:47)
[2017-05-04] MEDS: LOVENOX SUB-Q SCH (21:44)
[2017-05-05] MEDS: NOVOLOG SUB-Q SCH ×4 (08:17→21:49)
[2017-05-05] MEDS: AMARYL PO SCH (08:38)
[2017-05-05] MEDS: DEMADEX PO SCH (11:11)
[2017-05-05] MEDS: PEPCID PO SCH ×2 (11:12→21:47)
[2017-05-05] MEDS: TRICOR PO SCH (11:12)
[2017-05-05] MEDS: COREG PO SCH ×2 (11:13→21:47)
[2017-05-05] MEDS: MORPHINE IV PRN ×2 (11:28→19:05)
[2017-05-05] MEDS: ZOFRAN IV PRN (11:29)
[2017-05-05 13:05] LABS: Chloride 95.6 mmol/L (98-107); Potassium 4.8 mmol/L (3.6-5.0)
--- NOTE | 2017-05-05 15:27 | Progress Note ---
Assessment and Plan / Hypotension restarted antihypertensives, BP this am 2d echo showed Ef 40-45% reduced the dose of coreg and aldectone d/c torsemide and lisinopril check dogoxin level /JERI (acute kidney injury) presented with cr of 1.5, Cr was 0.7 on 03/05 may need to hold diuretics if renal function gets worse Cr much improved today /Dilated cardiomyopathy Cont diuretics, 40-455 Ef on 2d ECHO /T2DM (type 2 diabetes mellitus) New onset A1c 9.4 Initiated on Glimepride and SSI /Morbid obesity dietary and exercise counselling done /DVT prophylaxis Lovenox Brief History: 41 y/o female with HTN and cardiomypopathy comes in for feeling Light headed. Patient was found to have low BP at 60's Physical exam: General appearance: Present: no acute distress, morbidly obese - EENT Eyes: Present: PERRL ENT: hearing intact, clear oral mucosa - Neck Neck: Present: supple, normal ROM - Respiratory Respiratory effort: normal Respiratory: bilateral: CTA - Cardiovascular Heart Sounds: Present: S1 & S2. Absent: rub, click - Extremities Extremities: pulses symmetrical, No edema Peripheral Pulses: within normal limits - Abdominal General gastrointestinal: Present: soft, non-tender, non-distended, normal bowel sounds Female genitourinary: Present: normal - Integumentary Integumentary: Present: clear, warm, dry - Musculoskeletal Musculoskeletal: gait normal, strength equal bilaterally - Psychiatric Psychiatric: appropriate mood/affect, intact judgment & insight - Neurologic Neurologic: CNII-XII intact, moves all extremities Subjective Date of service: 05/05/17 Interval history: Pt seen and examined BP this am discussed with Dr Vidales denies any chest pain. c/o lightheadedness Objective - Constitutional Vitals: Vital Signs - 12hr 05/05/17 05/05/17 05/05/17 05:15 07:45 11:13 Temperature 98.2 F Pulse Rate 95 H 81 Respiratory 25 H Rate Blood Pressure 99/51 O2 Sat by Pulse 94 99 Oximetry - Labs CBC & Chem 7: 05/04/17 04:27 05/05/17 11:59 Labs: Abnormal lab results 05/04/17 05/04/17 05/04/17 Range/Units 08:26 12:13 17:10 Sodium (137-145) mmol/L Chloride (98-107) mmol/L BUN (7-17) mg/dL Glucose (65-100) mg/dL POC Glucose 218 H 249 H 323 H (70-105) 05/04/17 05/05/17 Range/Units 21:47 11:59 Sodium 136 L (137-145) mmol/L Chloride 95.6 L (98-107) mmol/L BUN 34 H (7-17) mg/dL Glucose 283 H (65-100) mg/dL POC Glucose 233 H (70-105)
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
[2017-05-05] MEDS: LANOXIN PO SCH (18:58)
[2017-05-05] MEDS: ALDACTONE PO SCH (19:00)
[2017-05-05] MEDS: LOVENOX SUB-Q SCH (21:47)
[2017-05-06] MEDS: ZOFRAN IV PRN ×2 (03:00→16:21)
[2017-05-06] MEDS: MORPHINE IV PRN ×3 (03:00→23:29)
[2017-05-06 06:08] LABS: Calcium 8.7 mg/dL (8.4-10.2); Chloride 94.9 mmol/L (98-107); Potassium 4.7 mmol/L (3.6-5.0)
[2017-05-06] MEDS: AMARYL PO SCH (08:33)
[2017-05-06] MEDS: NOVOLOG SUB-Q SCH ×5 (08:33→23:21)
--- NOTE | 2017-05-06 09:03 | Progress Note ---
Assessment and Plan - Hypotension Adjusted antihypertensives per cardiology rec. BP this am 105/56 2d echo showed Ef 40-45% reduced the dose of coreg and aldectone d/c torsemide and lisinopril - Nause and vomiting unknown etiology. normal digoxin level. iv Zofran ordered - JERI (acute kidney injury) presented with cr of 1.5, Cr today 05/06 is nl at 1.2 may need to hold diuretics if renal function gets worse - Dilated cardiomyopathy Cont diuretics, 40-45% Ef on 2d ECHO - T2DM (type 2 diabetes mellitus) New onset A1c 9.4 Initiated on Glimeperide and SSI. will still hold metformin b/c recently elevate Cr - Morbid obesity dietary and exercise counselling done - DVT prophylaxis Lovenox Dispositon: D/c home if no more vomiitng Subjective Date of service: 05/06/17 Principal diagnosis: Hypotension, Systolic heart failure Interval history: c/o nausea and vomiting. 4-5 last night. still nauseated thia morning. discussed with pt's nurse. No overnight event reported. Reviewed cardiology consult notes. Objective - Constitutional Vitals: Vital Signs - 12hr 05/05/17 05/05/17 05/05/17 21:30 21:47 23:51 Temperature Pulse Rate 70 Respiratory Rate Blood Pressure 100/44 O2 Sat by Pulse 97 Oximetry 05/06/17 05/06/17 05/06/17 00:03 04:43 07:39 Temperature 97.9 F 98.2 F Pulse Rate 82 Respiratory 20 20 Rate Blood Pressure 104/51 102/56 O2 Sat by Pulse 99 97 Oximetry General appearance: Present: no acute distress, well-nourished - EENT Eyes: PERRL, EOM intact - Neck Neck: supple, normal ROM - Respiratory Respiratory effort: normal Respiratory: bilateral: CTA - Cardiovascular Rhythm: regular Heart Sounds: Present: S1 & S2. Absent: gallop, rub Extremities: pulses intact, No edema, normal color, Full ROM - Gastrointestinal General gastrointestinal: Present: soft, non-tender, non-distended, normal bowel sounds - Integumentary Integumentary: clear, warm, dry - Musculoskeletal Musculoskeletal: 1, strength equal bilaterally - Neurologic Neurologic: moves all extremities - Psychiatric Psychiatric: memory intact, appropriate mood/affect, intact judgment & insight - Labs CBC & Chem 7: 05/04/17 04:27 05/06/17 04:48 Labs: Abnormal lab results 05/05/17 05/05/17 05/05/17 Range/Units 08:13 11:59 12:13 Sodium 136 L (137-145) mmol/L Chloride 95.6 L (98-107) mmol/L BUN 34 H (7-17) mg/dL Glucose 283 H (65-100) mg/dL POC Glucose 202 H 270 H (70-105) 05/05/17 05/05/17 05/06/17 Range/Units 17:14 20:55 04:48 Sodium 136 L (137-145) mmol/L Chloride 94.9 L (98-107) mmol/L BUN 30 H (7-17) mg/dL Glucose 240 H (65-100) mg/dL POC Glucose 284 H 285 H (70-105) 05/06/17 Range/Units 08:19 Sodium (137-145) mmol/L Chloride (98-107) mmol/L BUN (7-17) mg/dL Glucose (65-100) mg/dL POC Glucose 200 H (70-105)
[2017-05-06] MEDS: COREG PO SCH ×2 (10:11→23:32)
[2017-05-06] MEDS: PEPCID PO SCH (10:11)
[2017-05-06] MEDS: TRICOR PO SCH (10:12)
[2017-05-06] MEDS: ALDACTONE PO SCH (10:12)
--- NOTE | 2017-05-06 14:52 | Vascular Lab Report ---
CAROTID DUPLEX STUDY: RIGHT PSVEDV CCA PROX:[id number] CCA DIST:[id number] ICA PROX:9625 ICA MID:[id number] ICA DIST:9027 ECA: 9912 VERT: 55 14 LEFT PSVEDV CCA PROX:[id number] CCA DIST:65357 ICA PROX:9127 ICA MID:33043 ICA DIST:9134 ECA: 49799 VERT: 71 20 REASON FOR EXAM: Lightheaded and dizzy. COMMENTS ON THE RIGHT: Patient has a high bifurcation. Doppler frequency analysis is consistent with less than 50% diameter reduction of the internal carotid artery. Minimal amount of plaque is seen. The common carotid artery is patent. The external carotid artery is patent. The vertebral artery has antegrade flow. COMMENTS ON THE LEFT: Patient has a high bifurcation. Doppler frequency analysis is consistent with less than 50% diameter reduction of the internal carotid artery. Minimal amount of plaque is seen. The common carotid artery is patent. The external carotid artery is patent. The vertebral artery has antegrade flow. IMPRESSION: Less than 50% diameter reduction in the internal carotid arteries bilaterally. Consider repeat carotid artery duplex in 12 months.
[2017-05-06] MEDS: LANOXIN PO SCH (16:16)
[2017-05-06] MEDS ORDERED: ZOFRAN IV PRN (21:49)
[2017-05-06] MEDS ORDERED: REGLAN IV PRN (21:49)
[2017-05-06] MEDS ORDERED: PROTONIX IV SCH (22:00)
[2017-05-06] MEDS: LOVENOX SUB-Q SCH (23:23)
[2017-05-07] MEDS: AMARYL PO SCH (09:42)
[2017-05-07] MEDS: ALDACTONE PO SCH (09:43)
[2017-05-07] MEDS: TRICOR PO SCH (09:43)
[2017-05-07] MEDS: NOVOLOG SUB-Q SCH ×2 (09:43→13:23)
[2017-05-07 09:44] VITALS: BP 124/64
[2017-05-07] MEDS ORDERED: COREG PO SCH (10:00)
[2017-05-07] MEDS ORDERED: PROTONIX PO SCH (10:00)
--- NOTE | 2017-05-07 11:20 | Discharge Summary ---
Providers - Providers Date of Admission: 05/03/17 14:59 Attending physician: XAVIER NUÑEZ MD 05/05/17 11:30 Consult to Physician [CONS] Routine Consulting Provider: MIGUELINA BRANDT Reason For Exam: CHF Place consult to:: Dr. Brandt Notified:: Rahul BANDA Phone number called:: Was contact made?: Yes If yes, spoke with:: [facility] service Time called:: 14:24 Primary care physician: DRY PASTE SUPERVISOR Hospitalization Condition: Stable Hospital course: 41 y/o female with HTN and cardiomypopathy comes in for feeling Light headed.Patient was found to have low BP in 60's No SOB. His hypotension was thought to be due to polypharmacy. Therefore his diuretics and BP medications were discontinued. The patient clinically improved he went on to have an echocardiogram that showed a reduced EF of 40%. He received cardiology consultation. His diuretics were held after which his kidney function improved. He was started on oral medications for treatment of type 2 diabetes. His medications optimized and he was subsequently discharged. Discharge diagnoses Hypotension due to polypharmacy Nausea and vomiting Acute kidney injury due to ATN Dilated cardiomyopathy, chronic systolic CHF Type 2 diabetes Morbid obesity Disposition: DC-01 TO HOME OR SELFCARE Time spent for discharge: 33 minutes Core Measure Documentation - Palliative Care Palliative Care/ Comfort Measures: Not Applicable - Core Measures Any of the following diagnoses?: none Exam - Constitutional Vitals: Temp Pulse Resp BP Pulse Ox 98.3 F 78 19 124/64 98 05/07/17 05:23 05/07/17 09:42 05/07/17 05:23 05/07/17 09:42 05/07/17 09:16 General appearance: Present: no acute distress, well-nourished - EENT Eyes: Present: PERRL ENT: hearing intact, clear oral mucosa - Neck Neck: Present: supple, normal ROM - Respiratory Respiratory effort: normal Respiratory: bilateral: CTA - Cardiovascular Heart Sounds: Present: S1 & S2. Absent: rub, click - Extremities Extremities: pulses symmetrical, No edema Peripheral Pulses: within normal limits - Abdominal General gastrointestinal: Present: soft, non-tender, non-distended, normal bowel sounds Female genitourinary: Present: normal - Integumentary Integumentary: Present: clear, warm, dry - Musculoskeletal Musculoskeletal: gait normal, strength equal bilaterally - Psychiatric Psychiatric: appropriate mood/affect, intact judgment & insight - Neurologic Neurologic: CNII-XII intact, moves all extremities Plan Additional Instructions: please see your Primary care doctor within a week and have your blood tests, which are Basic Metabolic Panel and Digoxin level Follow up with: PRIMARY CARE, [Primary Care Provider] - 7 Days Prescriptions: Acetaminophen/Codeine [Tylenol /Codeine # 3 tab] 1 tab PO Q6H PRN #12 tab PRN Reason: Pain , Severe (7-10) Carvedilol [Coreg] 25 mg PO BID #60 tablet Digoxin [Lanoxin] 0.125 mg PO DAILY #30 tablet Glimepiride [Amaryl] 2 mg PO QDDIAB #60 tablet Spironolactone [Aldactone] 25 mg PO QDAY #30 tablet
--- NOTE | 2017-05-14 13:56 | Query- Dyspnea ---
Deatommie Michel Brando Date:____05/14/17 Ordnance Artificer/CDS: Marizol / Romulo Phone#:___[phone] Exercise your independent professional judgment when responding to query. Questions asked do not imply a particular answer is desired or expected. We greatly appreciate your clarification on this issue. Clinical Documentation States: 41 year old female was admitted on 05/03/17 The discharge summary (Dr. Michaels) states " 41 y/o female with HTN and cardiomypopathy comes in for feeling Light headed.Patient was found to have low BP in 60's No SOB. No fever or chills.Compliant with Meds. - Hypotension - Dilated cardiomyopathy - Nause and vomiting - JERI (acute kidney injury) " Clinical Findings Show: Respiratory rate: 31 Pulse OX: 78% O2 Flow rate: 3 L/min Please clarify if the patient had any of the following conditions based on the above clinical findings: [ ] Respiratory Failure [x ] Acute [ ] Acute on Chronic [ ] Chronic [ ] Respiratory failure due to trauma [ ] Acute Respiratory Distress Syndrome [ ] Other: [ ] Unable to determine [ ] Comment/Explanation: Present on Admission: [x ] Yes (Y) [ ] Clinically undeterminable (W) [ ] No (N) Please also document response in your Progress Notes and/or Discharge Summary and indicate if the condition was present on admission. ALLY
== END 2017-05-07 13:45 | disposition home or self-care (01) | DRG 682 ==
LOC: ED 11:50 → 4A 14:59
PROVIDERS: ADMIT Internal Medicine; ATTEND Internal Medicine
PROC: 3E0234Z Introduction of Serum, Toxoid and Vaccine into Muscle, Percutaneous Approach (ICD-10-PCS; principal; 2017-05-04)
DX: N17.0 Acute kidney failure with tubular necrosis (principal); J96.00 Acute respiratory failure, unspecified whether with hypoxia or hypercapnia; I42.0 Dilated cardiomyopathy; Z68.43 Body mass index [BMI] 50.0-59.9, adult; I50.20 Unspecified systolic (congestive) heart failure; I95.2 Hypotension due to drugs; E66.01 Morbid (severe) obesity due to excess calories; E11.9 Type 2 diabetes mellitus without complications; E78.5 Hyperlipidemia, unspecified; F32.9 Major depressive disorder, single episode, unspecified; J45.909 Unspecified asthma, uncomplicated; I11.0 Hypertensive heart disease with heart failure; F17.210 Nicotine dependence, cigarettes, uncomplicated; Z88.8 Allergy status to other drugs, medicaments and biological substances; Z91.040 Latex allergy status; Z95.810 Presence of automatic (implantable) cardiac defibrillator; Z23 Encounter for immunization; Z86.73 Personal history of transient ischemic attack (TIA), and cerebral infarction without residual deficits; Z90.49 Acquired absence of other specified parts of digestive tract; Z90.710 Acquired absence of both cervix and uterus; Z83.3 Family history of diabetes mellitus
CPT/HCPCS: 36415; 71010; 80048; 80053; 80162; 81001; 82140; 82550; 82553; 82805; 82962; 83036; 84484; 85007; 85025; 85610; 85730; 86850; 86900; 86901; 87040; 87086; 90686; 93005; 93010; 93306; 93880; 94760; 96374; A9270-GY; C9113; J1650; J1815; J2270; J2405; J7030; J7040

== ENCOUNTER 2017-06-14 11:00 | Outpatient (CLI) | payer MEDICARE | END 2017-06-14 11:01 | disposition home or self-care (01) | LOC: SLR 11:00 | PROVIDERS: ATTEND Internal Medicine | DX: G47.30 Sleep apnea, unspecified (principal); E11.9 Type 2 diabetes mellitus without complications; E78.5 Hyperlipidemia, unspecified; J45.909 Unspecified asthma, uncomplicated; E66.9 Obesity, unspecified | CPT/HCPCS: 95810 ==

== ENCOUNTER 2017-06-17 18:39 | Emergency (ER) | payer MEDICARE ==
[2017-06-17 18:49] VITALS: BP 141/63
[2017-06-17] MEDS ORDERED: DUONEB *Not for PRN Use IH ONE (19:59)
--- NOTE | 2017-06-17 20:12 | XRay Report ---
FINAL REPORT PROCEDURE: XR CHEST ROUTINE 2V TECHNIQUE: PA and lateral chest radiographs were obtained. CPT 83964 HISTORY: Shortness of breath COMPARISON: No prior studies are available for comparison. FINDINGS: Heart: Mild cardiomegaly is noted.. Mediastinum/Vessels: Normal. Lungs/Pleural space: Normal. Bony thorax: No acute osseous abnormality. Other: A tripolar cardiac device is noted on the left side with its leads in place. IMPRESSION: No acute pulmonary process. Mild cardiomegaly..
[2017-06-17 20:18] LABS: Basophils % (Auto) 0.4 % (0.0-1.8); Eosinophils # (Auto) 0.2 K/mm3 (0.0-0.4); Eosinophils % (Auto) 1.8 % (0.0-4.3); Hematocrit 43.3 % (30.3-42.9); Hemoglobin 14.9 gm/dl (10.1-14.3); Lymphocytes # (Auto) 4.2 K/mm3 (1.2-5.4); Lymphocytes % (Auto) 38.7 % (13.4-35.0); Mean Corpuscular HGB Conc 34 % (30-34); Mean Corpuscular Hemoglobin 31 pg (28-32); Mean Corpuscular Volume 92 fl (79-97); Monocytes # (Auto) 0.7 K/mm3 (0.0-0.8); Monocytes % (Auto) 6.2 % (0.0-7.3); Platelet Count 281 K/mm3 (140-440); Red Blood Count 4.73 M/mm3 (3.65-5.03); Red Cell Distribution Width 13.3 % (13.2-15.2)
[2017-06-17 20:35] LABS: Calcium 9.5 mg/dL (8.4-10.2)
== END 2017-06-17 23:00 | disposition left against medical advice (07) ==
LOC: ED 18:39
DX: R06.09 Other forms of dyspnea (principal); Z53.21 Procedure and treatment not carried out due to patient leaving prior to being seen by health care provider
CPT/HCPCS: 36415; 71046; 80048; 85025; 93005; 93010; 94640

== ENCOUNTER 2017-07-11 08:08 | Day surgery (SDC) | payer MEDICARE ==
[2017-07-11 09:08] LABS: Hematocrit 41.1 % (30.3-42.9); Mean Corpuscular HGB Conc 34 % (30-34); Mean Corpuscular Hemoglobin 31 pg (28-32); Mean Corpuscular Volume 90 fl (79-97); Platelet Count 237 K/mm3 (140-440); Red Blood Count 4.57 M/mm3 (3.65-5.03); Red Cell Distribution Width 13.3 % (13.2-15.2)
[2017-07-11 09:28] LABS: BUN/Creatinine Ratio 33; Blood Urea Nitrogen 33 mg/dL (7-17); Hemolysis Index 4
[2017-07-11] MEDS ORDERED: MARCAINE 0.5% 60 ML INFILTRATI ONE (09:39)
[2017-07-11] MEDS ORDERED: NACL 0.9% 500 ML IR ONE (09:39)
[2017-07-11] MEDS ORDERED: ANCEF/STERILE WATER 2 GM/20 ML 2 GM/20 ML SYRINGE IV ONE (09:40)
[2017-07-11 09:50] LABS: INR 0.88 (0.87-1.13); Partial Thromboplastin Time 26.3 Sec. (24.2-36.6)
[2017-07-11] MEDS ORDERED: DIPRIVAN 10 MG/ML IV ONE ×2 (09:57)
[2017-07-11] MEDS ORDERED: SUBLIMAZE ONE (09:57)
[2017-07-11] MEDS ORDERED: VERSED IV ONE (09:58)
[2017-07-11] MEDS ORDERED: NACL 0.45% 1000 ML 1,000 ML IV SCH (10:00)
[2017-07-11] MEDS ORDERED: NACL 0.9% 1,000 ML, VANCOMYCIN VIAL 1,000 MG IR NR (10:00)
[2017-07-11] MEDS ORDERED: XYLOCAINE MPF 2% ONE (10:00)
[2017-07-11] MEDS ORDERED: KETALAR ONE (10:14)
[2017-07-11] MEDS: XYLOCAINE 1% 20 mL ONE ×2 (10:43→10:49)
[2017-07-11] MEDS ORDERED: XYLOCAINE 2% INFILTRATI ONE (10:49)
[2017-07-11 11:16] LABS: Platelet Estimate Cons; RBC Morphology Normal; Total Cells Counted 100
--- NOTE | 2017-07-11 11:28 | Anesthesia Day of Surgery ---
Anesthesia Day of Surgery - Day of Surgery Patient Examined: Yes Patient H&P Reviewed: Yes Patient is NPO: Yes
--- NOTE | 2017-07-11 11:32 | Anesthesia Consultation ---
Anesthesia Consult and Med Hx Date of service: 07/11/17 - Airway Anesthetic Teeth Evaluation: Good ROM Head & Neck: Adequate Mental/Hyoid Distance: Adequate Mallampati Class: Class III Intubation Access Assessment: Possibly Difficult - Pulmonary Exam CTA: Yes - Cardiac Exam Cardiac Exam: RRR - Pre-Operative Health Status ASA Pre-Surgery Classification: ASA3 Proposed Anesthetic Plan: MAC - Pulmonary Hx Smoking: Yes (5 to 6cigs/day) Hx Asthma: Yes (no inhaler use) SOB: No COPD: No Hx Pneumonia: Yes (2009) Hx Sleep Apnea: Yes - Cardiovascular System Hx Hypertension: Yes Hx Coronary Artery Disease: No (dilated cardiomyopathy EF 40-45%) Hx Heart Attack/AMI: No Hx Angina: No Hx Pacemaker: Yes (AICD 05/2008, here fore a generator change today) Hx Internal Defibrillator: Yes Hx Valvular Heart Disease: Yes (mild to moderate TR and ) Hx Peripheral Vascular Disease: No - Central Nervous System Hx Neuromuscular Disorder: No Hx Seizures: No CVA: Yes (2015) Hx Psychiatric Problems: Yes (major depression) - Gastrointestinal Hx Gastroesophageal Reflux Disease: No - Endocrine Hx End Stage Renal Disease: No Hx Liver Disease: No Hx Non-Insulin Dependent Diabetes: Yes (BS-129) Hx Thyroid Disease: No - Hematic Hx Anemia: No Hx Sickle Cell Disease: No - Other Systems Hx Cancer: No Hx Obesity: Yes (morbid obesity)
[2017-07-11] MEDS ORDERED: DUONEB *Not for PRN Use IH ONE ×2 (12:44→12:45)
[2017-07-11] MEDS ORDERED: D50W (25GM) Syringe IV PRN (13:13)
--- NOTE | 2017-07-11 13:38 | Post Anesthesia Evaluation ---
- Post Anesthesia Evaluation Patient Participated: Yes Airway Patent: Yes Stable Respiratory Function: Yes Nausea/Vomiting: No Temp > 96.8F: Yes Pain Manageable: Yes Adequeate Hydration: Yes Anesthesia Complications: No
[2017-07-11] MEDS ORDERED: NOVOLOG SUB-Q SCH (14:00)
[2017-07-11 14:05] VITALS: BP 92/58
== END 2017-07-11 14:25 | disposition home or self-care (01) ==
LOC: CR 08:08 → CATHLABREC 08:08
PROVIDERS: ATTEND Internal Medicine Cardiovascular Disease
DX: I42.0 Dilated cardiomyopathy (principal); I10 Essential (primary) hypertension; J45.909 Unspecified asthma, uncomplicated; G47.30 Sleep apnea, unspecified; F32.9 Major depressive disorder, single episode, unspecified; E66.01 Morbid (severe) obesity due to excess calories; E11.9 Type 2 diabetes mellitus without complications; E78.5 Hyperlipidemia, unspecified; F17.210 Nicotine dependence, cigarettes, uncomplicated; Z68.43 Body mass index [BMI] 50.0-59.9, adult; Z86.73 Personal history of transient ischemic attack (TIA), and cerebral infarction without residual deficits; Z79.899 Other long term (current) drug therapy; Z79.01 Long term (current) use of anticoagulants; Z88.8 Allergy status to other drugs, medicaments and biological substances; Z91.040 Latex allergy status; Z79.82 Long term (current) use of aspirin
CPT/HCPCS: 33264; 36415; 80048; 82962; 85007; 85025; 85610; 85730; 93005; 93010; 94640; 96372; C1882; J0690; J2250; J2704; J3010; J3370; J1815

== ENCOUNTER 2017-10-30 08:37 | Day surgery (SDC) | payer MEDICARE ==
[2017-10-30] MEDS ORDERED: NACL 0.9% 1000 ML 1,000 ML ONE (09:32)
[2017-10-30] MEDS ORDERED: NACL 0.9% 1000 ML 1,000 ML IV SCH (11:00)
--- NOTE | 2017-10-30 11:21 | Anesthesia Day of Surgery ---
Anesthesia Day of Surgery - Day of Surgery Patient Examined: Yes Patient H&P Reviewed: Yes Patient is NPO: Yes Beta Blockers: No Cardiac Clearance: No Pulmonary Clearance: No
[2017-10-30] MEDS ORDERED: VERSED ONE (11:22)
--- NOTE | 2017-10-30 11:22 | Anesthesia Consultation ---
Anesthesia Consult and Med Hx - Airway Anesthetic Teeth Evaluation: Good ROM Head & Neck: Adequate Mental/Hyoid Distance: Adequate Mallampati Class: Class II Intubation Access Assessment: Probably Good - Pulmonary Exam CTA: Yes - Cardiac Exam Cardiac Exam: No Murmur - Pre-Operative Health Status ASA Pre-Surgery Classification: ASA3 Proposed Anesthetic Plan: MAC - Pulmonary Hx Smoking: Yes (5 to 6cigs/day) Hx Asthma: Yes (no inhaler use) SOB: No COPD: No Hx Pneumonia: Yes (2009) Hx Sleep Apnea: Yes - Cardiovascular System Hx Hypertension: Yes Hx Coronary Artery Disease: No (dilated cardiomyopathy EF 40-45%) Hx Heart Attack/AMI: No Hx Angina: No Hx Pacemaker: Yes (AICD 05/2008, here fore a generator change today) Hx Internal Defibrillator: Yes Hx Valvular Heart Disease: Yes (mild to moderate TR and ) Hx Peripheral Vascular Disease: No - Central Nervous System Hx Neuromuscular Disorder: No Hx Seizures: No CVA: Yes (2015) Hx Psychiatric Problems: Yes (major depression) - Gastrointestinal Hx Gastroesophageal Reflux Disease: No - Endocrine Hx End Stage Renal Disease: No Hx Liver Disease: No Hx Insulin Dependent Diabetes: Yes (sw=713) Hx Non-Insulin Dependent Diabetes: Yes (BS-129) Hx Thyroid Disease: No - Hematic Hx Anemia: No Hx Sickle Cell Disease: No - Other Systems Hx Cancer: No Hx Obesity: Yes (morbid obesity)
[2017-10-30] MEDS ORDERED: DIPRIVAN 10 MG/ML IV ONE (11:23)
[2017-10-30] MEDS ORDERED: XYLOCAINE 2% INFILTRATI ONE (11:27)
[2017-10-30] MEDS ORDERED: XYLOCAINE TOPICAL 2% 5ML ONE (11:41)
--- NOTE | 2017-10-30 12:01 | Post Operative Note ---
Pre-op diagnosis: rectal pain, change in bowel habits, hematochezia Post-op diagnosis: same (moderate sized internal hemorrhoids s/p banding. 2 small colon polyps removed, few small tics) Findings: 1. Two small colon polyps removed with biopsy forceps 2. Few small tics 3. Internal hemorrhoids s/p banding Procedure: 1. Colonoscopy with banding of hemorrhoids and biopsy Anesthesia: MAC Surgeon: CANDIDA IBARRA Estimated blood loss: minimal Pathology: list (Jar A - descending colon polyps) Specimen disposition: to lab Condition: stable Disposition: same day
--- NOTE | 2017-10-30 12:04 | Operative Report ---
Operative Report Operative Report: Colonoscopy Procedure Note with Banding of hemorrhoids and Biopsy Date of procedure: 10/30/2017 Endoscopist: Gene Alvarado Pre-op diagnosis: rectal pain, hematochezia, change in bowel habits Post-op diagnosis: internal hemorrhoids s/p banding, small colon polyps, few small tics Anesthesia: MAC Complications: No immediate complications Estimated blood loss: minimal Procedure: After consent was obtained, the patient was placed in the left lateral decubitus position. The fujinon colonoscope was inserted into the patient's rectum under direct vision, and advanced to the cecum without difficulty. The patient tolerated the procedure well. The views of the mucosa were good. The quality of prep was good. The patient's vital signs were monitored continuously throughout the procedure. Findings: There were two polyps (~2 mm in size) in the descending colon. The polyps were removed with cold forceps biopsy and retrieved. There were a couple small diverticula in the left side of the colon. Small-moderate sized internal hemorrhoids. Two bands were placed successfully. Impression: 1. Internal hemorrhoids s/p banding 2. Small colon polyps removed with cold forceps biopsy 3. Mild diverticulosis Recommendations: -high fiber diet daily -follow-up pathology -hemorrhoidal cream prn -follow-up in GI clinic in 1 month -surveillance colonoscopy based on pathology results
[2017-10-30 13:30] VITALS: BP 117/54
[2017-10-30] MEDS ORDERED: NEO SYNEPHRINE/NS Syringe(OR USE) IV ONE (13:50)
== END 2017-10-30 08:38 | disposition home or self-care (01) ==
LOC: GIO 08:37
PROVIDERS: ATTEND Internal Medicine Gastroenterology
DX: K63.5 Polyp of colon (principal); K57.30 Diverticulosis of large intestine without perforation or abscess without bleeding; K64.8 Other hemorrhoids; K92.1 Melena; K59.00 Constipation, unspecified; J45.909 Unspecified asthma, uncomplicated; I10 Essential (primary) hypertension; I42.0 Dilated cardiomyopathy; F32.9 Major depressive disorder, single episode, unspecified; E11.9 Type 2 diabetes mellitus without complications; E66.01 Morbid (severe) obesity due to excess calories; G47.33 Obstructive sleep apnea (adult) (pediatric); F17.210 Nicotine dependence, cigarettes, uncomplicated; Z88.8 Allergy status to other drugs, medicaments and biological substances; Z86.73 Personal history of transient ischemic attack (TIA), and cerebral infarction without residual deficits; Z79.899 Other long term (current) drug therapy; Z95.810 Presence of automatic (implantable) cardiac defibrillator; Z91.040 Latex allergy status
CPT/HCPCS: 45380; 45398; 82962; 88305; J2250; J2370; J2704; J7030

== ENCOUNTER 2018-05-15 06:43 | Emergency (ER) | payer MEDICARE ==
[2018-05-15] MEDS ORDERED: DUONEB *Not for PRN Use IH ONE (07:28)
--- NOTE | 2018-05-15 07:53 | XRay Report ---
ROUTINE CHEST, TWO VIEWS: HISTORY: Difficulty in breathing. A 3-lead cardiac device appears unchanged in position. Heart size and pulmonary vasculature are within normal limits. The lungs are clear. No evidence for pneumonia, CHF or pneumothorax. The bony structures are within normal limits. No change is identified since 02/03/18. IMPRESSION: No acute cardiopulmonary process.
[2018-05-15] MEDS ORDERED: DELTASONE PO ONE (08:19)
--- NOTE | 2018-05-15 08:26 | Emergency Department Report ---
HPI - General Chief Complaint: Adult Asthma Time Seen by Provider: 05/15/18 08:13 - HPI HPI: 42-year-old female presents to the emergency department with complaint of developing a mixed dry and productive cough with coughing fits since last night. This is contributing any sleep. She also has some shortness of breath and wheezing intermittently. She used her nebulizer treatment at home with some relief of the shortness of breath and wheezing and nothing has helped the cough. She denies any fever, chest pain. No recent travel or sick contacts at home. She has a primary care physician for follow-up. She has a possible history of asthma, CHF, CVA, diabetes, hypertension and has a AICD in place. ED Past Medical Hx - Past Medical History Previous Medical History?: Yes Hx Hypertension: Yes Hx CVA: Yes Hx Heart Attack/AMI: No Hx Congestive Heart Failure: Yes Hx Diabetes: Yes Hx Deep Vein Thrombosis: No Hx Pulmonary Embolism: No Hx GERD: No Hx Liver Disease: No Hx Sickle Cell Disease: No Hx Arthritis: No Hx Headaches / Migraines: No Hx Seizures: No Hx Kidney Stones: No Hx Psychiatric Treatment: No Hx Asthma: Yes Hx COPD: No Hx Tuberculosis: No Hx Dementia: No Hx HIV: No Additional medical history: 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 pre-ecla mpsia - Surgical History Past Surgical History?: Yes Hx Coronary Stent: No Hx Open Heart Surgery: No Hx Pacemaker: Yes (AICD 05/2008, here fore a generator change today) Hx Internal Defibrillator: Yes Hx Cholecystectomy: No Hx Appendectomy: Yes Hx Breast Surgery: No Additional Surgical History: hysterectomy, AICD - Social History Smoking Status: Current Every Day Smoker Substance Use Type: None - Medications Home Medications: Home Medications Medication Instructions Recorded Confirmed Last Taken Type RX: Fenofibrate,Micronized 134 mg PO DAILY 04/20/16 02/04/18 02/03/18 History [Fenofibrate] RX: Insulin Regular, Human 20 unit SUB-Q TID 06/19/17 02/04/18 02/03/18 History [Humulin R] RX: Insulin Degludec [Tresiba 34 unit SQ QPM 02/04/18 02/04/18 02/03/18 History Flextouch U-100] Ipratropium [Atrovent] 0.5 mg IH Q4HR #30 ml 02/08/18 Unknown Rx RX: Aspirin 325 mg PO DAILY #30 tablet 02/08/18 Unknown Rx RX: Carvedilol [Coreg] 25 mg PO BID #60 tablet 02/08/18 Unknown Rx RX: Digoxin [Lanoxin] 0.125 mg PO DAILY #30 tablet 02/08/18 Unknown Rx RX: Enalapril Maleate [Vasotec] 10 mg PO DAILY #30 tablet 02/08/18 Unknown Rx RX: Fenofibrate [Tricor] 145 mg PO DAILY tablet 02/08/18 Unknown Rx RX: Potassium Chloride [K-Dur] 10 meq PO QDAY #30 tablet 02/08/18 Unknown Rx RX: Rosuvastatin (Nf) [Crestor] 40 mg PO DAILY 30 Days tablet 02/08/18 Unknown Rx RX: Spironolactone [Aldactone] 25 mg PO QDAY tablet 02/08/18 Unknown Rx RX: Spironolactone [Aldactone] 25 mg PO QDAY #30 tablet 02/08/18 Unknown Rx RX: Torsemide [Demadex] 20 mg PO DAILY #30 tablet 02/08/18 Unknown Rx RX: cephALEXin [Keflex] 500 mg PO Q12HR #16 cap 02/08/18 Unknown Rx RX: oxyCODONE /ACETAMINOPHEN 1 tab PO Q6H PRN #8 tablet 02/08/18 Unknown Rx [Percocet 5/325 mg] methylPREDNISolone [Medrol] 4 mg PO QAM #1 tab.ds.pk 02/08/18 Unknown Rx RX: Benzonatate [Tessalon Perles] 100 mg PO Q6HR PRN #20 capsule 05/15/18 Unknown Rx RX: predniSONE [Deltasone] 20 mg PO BID #10 tab 05/15/18 Unknown Rx guaiFENesin/CODEINE [Robitussin AC] 5 ml PO Q4H PRN #100 ml 05/15/18 Unknown Rx ED Review of Systems ROS: Stated complaint: SOB ASTHMA COUGH HEADACE Other details as noted in HPI Comment: All other systems reviewed and negative Constitutional: denies: chills, fever Eyes: denies: eye pain, eye discharge, vision change ENT: denies: ear pain, throat pain Respiratory: cough, shortness of breath, wheezing Cardiovascular: denies: chest pain, edema Gastrointestinal: denies: abdominal pain, vomiting Genitourinary: denies: dysuria, discharge Musculoskeletal: denies: back pain, arthralgia Skin: denies: rash, lesions Neurological: denies: weakness, numbness Physical Exam - Physical Exam Vital Signs: Vital Signs 05/15/18 06:51 Pulse Rate 83 Physical Exam: GENERAL: The patient is well-developed well-nourished. HEENT: Normocephalic. Atraumatic. Patient has moist mucous membranes. EYES: Extraocular motions are intact. Pupils are equal and reactive to light bilaterally. NECK: Supple. Trachea is midline. CHEST/LUNGS: Mild to moderate wheezing throughout the chest. No tachypnea or accessory muscle use. There is a productive sounding cough heard during examination. There is no respiratory distress noted. HEART/CARDIOVASCULAR: Regular. There is no tachycardia. There is no obvious murmur. ABDOMEN: Abdomen is soft, nontender. Patient has normal bowel sounds. Morbidly obese habitus. SKIN: Skin is warm and dry. NEURO: The patient is awake, alert, and oriented. The patient is cooperative. The patient has no focal neurologic deficits. The patient has normal speech. MUSCULOSKELETAL: There is no tenderness or deformity. There is no limitation range of motion. There is no evidence of acute injury. ED Course Vital Signs 05/15/18 06:51 Pulse Rate 83 ED Medical Decision Making - Lab Data Result diagrams: 05/15/18 09:54 05/15/18 09:51 - EKG Data -: EKG Interpreted by Me - EKG Data When compared to previous EKG there are: no significant change Interpretation: unchanged when compared t (02/10/18), other (atrial sensed ventricular paced at 90 bpm, left axis deviation, prolonged QTC) - Radiology Data Radiology results: image reviewed interpreted by me: Chest x-ray does not show any pneumothorax, pleural effusion, pneumonia or obvious focal consolidation. - Medical Decision Making This patient has a history of both asthma and COPD, among other comorbidities. She presents mostly with a complaint of a cough with coughing fits that is keeping her from getting sleep but it seems to have caused some bronchospasm. Patient was given some steroids and multiple breathing treatments with some improvement. There is only some mild expiratory wheezing prior to discharge. No hypoxia and her vital signs are stable throughout her ED course. Chest x-ray did not show any focal consolidation, pneumonia, pleural effusion, pneumothorax or any other acute cardiopulmonary process. Patient's labs were unremarkable in cluding a CBC, metabolic panel and a BNP. The patient says that she has enough albuterol for home. She will be given Robitussin-AC for cough and a five-day course of steroids. She will return to ER with any worsening of her symptoms or any acute distress. - Differential Diagnosis asthma, COPD, pneumonia, CHF Critical Care Time: No Critical care attestation.: If time is entered above; I have spent that time in minutes in the direct care of this critically ill patient, excluding procedure time. ED Disposition Clinical Impression: Bronchospasm Asthma exacerbation Qualifiers: Asthma severity: unspecified severity Asthma persistence: unspecified Qualified Code(s): J45.901 - Unspecified asthma with (acute) exacerbation Disposition: TO HOME OR SELFCARE Is pt being admited?: No Condition: Stable Instructions: Asthma (ED), Bronchospasm (ED) Additional Instructions: Please follow-up with your primary care physician in the next few days. Return to the emergency Department with any worsening of your symptoms or any acute distress. Please stop smoking. You have been prescribed a medication that can be sedating. Therefore, this medication cannot be taken prior to driving, working, being responsible for children, and cannot be mixed with alcohol of any quantity. Prescriptions: RX: Benzonatate [Tessalon Perles] 100 mg PO Q6HR PRN #20 capsule PRN Reason: Cough guaiFENesin/CODEINE [Robitussin AC] 5 ml PO Q4H PRN #100 ml PRN Reason: Cough RX: predniSONE [Deltasone] 20 mg PO BID #10 tab Referrals: PRIMARY CARE, [Primary Care Provider] - [facility] Time of Disposition: 11:29
[2018-05-15] MEDS ORDERED: ROBITUSSIN AC PO ONE (09:00)
[2018-05-15] MEDS ORDERED: PROVENTIL IH ONE (09:48)
[2018-05-15 10:07] LABS: Basophils # (Auto) 0.1 K/mm3 (0.0-0.1); Basophils % (Auto) 0.5 % (0.0-1.8); Eosinophils # (Auto) 0.2 K/mm3 (0.0-0.4); Eosinophils % (Auto) 1.7 % (0.0-4.3); Hematocrit 43.5 % (30.3-42.9); Hemoglobin 14.5 gm/dl (10.1-14.3); Lymphocytes # (Auto) 4.3 K/mm3 (1.2-5.4); Lymphocytes % (Auto) 38.6 % (13.4-35.0); Mean Corpuscular HGB Conc 33 % (30-34); Mean Corpuscular Hemoglobin 30 pg (28-32); Mean Corpuscular Volume 90 fl (79-97); Monocytes # (Auto) 0.7 K/mm3 (0.0-0.8); Monocytes % (Auto) 6.6 % (0.0-7.3); Platelet Count 247 K/mm3 (140-440); Red Blood Count 4.83 M/mm3 (3.65-5.03); Red Cell Distribution Width 13.3 % (13.2-15.2)
[2018-05-15 10:25] LABS: BUN/Creatinine Ratio 26; Blood Urea Nitrogen 23 mg/dL (7-17); Calcium 9.2 mg/dL (8.4-10.2); Hemolysis Index 46
[2018-05-15 11:43] VITALS: BP 122/78
== END 2018-05-15 11:43 | disposition home or self-care (01) ==
LOC: ED 06:43
DX: J98.01 Acute bronchospasm (principal); I11.0 Hypertensive heart disease with heart failure; E11.9 Type 2 diabetes mellitus without complications; F17.200 Nicotine dependence, unspecified, uncomplicated; Z95.0 Presence of cardiac pacemaker; Z90.49 Acquired absence of other specified parts of digestive tract; Z90.710 Acquired absence of both cervix and uterus; Z91.040 Latex allergy status; Z88.8 Allergy status to other drugs, medicaments and biological substances; Z79.4 Long term (current) use of insulin; Z79.82 Long term (current) use of aspirin
CPT/HCPCS: 36415; 71046; 80048; 83880; 85025; 93005; 93010; 94640; 99284; J7512; 94644

== ENCOUNTER 2018-10-21 08:33 | Outpatient (CLI) | payer MEDICARE ==
[2018-10-21 10:26] LABS: Hematocrit 44.2 % (30.3-42.9); Hemoglobin 14.6 gm/dl (10.1-14.3); Mean Corpuscular HGB Conc 33 % (30-34); Mean Corpuscular Volume 92 fl (79-97); Platelet Count 220 K/mm3 (140-440); Red Blood Count 4.82 M/mm3 (3.65-5.03); Red Cell Distribution Width 13.9 % (13.2-15.2)
[2018-10-21 10:44] LABS: Alanine Aminotransferase 35 units/L (7-56); Albumin 4.3 g/dL (3.9-5); BUN/Creatinine Ratio 30; Blood Urea Nitrogen 33 mg/dL (7-17); Calcium 9.9 mg/dL (8.4-10.2); HDL Cholesterol 30 mg/dL (40-59); Hemolysis Index 0; LDL Cholesterol,Direct 153 mg/dL (50-130)
[2018-10-27 20:52] LABS: Vitamin D, 25-OH, D2 <4 ng/mL
== END 2018-10-21 08:34 | disposition home or self-care (01) ==
LOC: LAB 08:33
PROVIDERS: ATTEND Internal Medicine
DX: Z13.220 Encounter for screening for lipoid disorders (principal); Z13.21 Encounter for screening for nutritional disorder; Z13.1 Encounter for screening for diabetes mellitus; E11.65 Type 2 diabetes mellitus with hyperglycemia; I11.0 Hypertensive heart disease with heart failure; I50.9 Heart failure, unspecified; E78.00 Pure hypercholesterolemia, unspecified; J45.909 Unspecified asthma, uncomplicated
CPT/HCPCS: 36415; 80053; 80061; 82306; 82607; 83036; 84443; 85027

== ENCOUNTER 2018-12-03 22:36 | Emergency (ER) | payer MEDICARE ==
[2018-12-03 22:50] VITALS: BP 116/74
[2018-12-03] MEDS ORDERED: DUONEB *Not for PRN Use IH ONE (22:50)
--- NOTE | 2018-12-03 23:44 | XRay Report ---
CHEST 2 VIEWS INDICATION / CLINICAL INFORMATION: sob. COMPARISON: None available. FINDINGS: SUPPORT DEVICES: Left subclavian pacemaker/ICD leads are noted. HEART / MEDIASTINUM: Cardiac silhouette remains enlarged with normal pulmonary vascularity. LUNGS / PLEURA: No significant pulmonary or pleural abnormality. No pneumothorax. ADDITIONAL FINDINGS: No significant additional findings. IMPRESSION: 1. Cardiomegaly without CHF Signer Name: Matthew Luevano MD Signed: 12/03/2018 11:40 PM Workstation Name: [id number]
[2018-12-04] MEDS ORDERED: PROVENTIL IH ONE (00:51)
[2018-12-04] MEDS ORDERED: DECADRON IM ONE (00:51)
[2018-12-04] MEDS ORDERED: TYLENOL #3 PO ONE (00:52)
--- NOTE | 2018-12-04 01:22 | Emergency Department Report ---
ED Shortness of Breath HPI - General Chief Complaint: Adult Asthma Stated Complaint: ASTHMA OUT OF BREATH HEADACHE Time Seen by Provider: 12/03/18 22:38 Source: patient Mode of arrival: Ambulatory Limitations: No Limitations - History of Present Illness Initial Comments: Patient is a 43-year-old female presents for cough and wheezing 3 days has a history of asthma bronchitis coronary artery disease hypertension and diabetes states she is out of her inhaler is no fevers no chills there is a cough that is productive of green thick there is no chest pain or nausea vomiting no diaphoresis external wheezing at night MD Complaint: shortness of breath -: days(s) Radiation: back Severity: moderate Pain Scale: 4 Consistency: constant Improves With: bronchodilators Worsens With: coughing, other (invironmental exosure) Known History Of: asthma, congestive heart failure, diabetes Associated Symptoms: cough - Related Data Home Oxygen Therapy: No Home Medications Medication Instructions Recorded Confirmed Last Taken Fenofibrate,Micronized 134 mg PO DAILY 04/20/16 05/19/18 02/03/18 [Fenofibrate] Insulin Degludec [Tresiba 40 unit SQ QPM 02/04/18 05/19/18 02/03/18 Flextouch U-100] Insulin Regular,Human U-500(Nf See Protocol SC TID 05/19/18 05/19/18 Unknown [HumuLIN R] Previous Rx's Medication Instructions Recorded Last Taken Type Aspirin 325 mg PO DAILY #30 tablet 02/08/18 Unknown Rx Carvedilol [Coreg] 25 mg PO BID #60 tablet 02/08/18 Unknown Rx Digoxin [Lanoxin] 0.125 mg PO DAILY #30 tablet 02/08/18 Unknown Rx Enalapril Maleate [Vasotec] 10 mg PO DAILY #30 tablet 02/08/18 Unknown Rx Ipratropium [Atrovent NEB] 0.5 mg IH Q4HR #30 ml 02/08/18 Unknown Rx Rosuvastatin (Nf) [Crestor] 40 mg PO DAILY 30 Days tablet 02/08/18 Unknown Rx Spironolactone [Aldactone] 25 mg PO QDAY #30 tablet 02/08/18 Unknown Rx Torsemide [Demadex] 20 mg PO DAILY #30 tablet 02/08/18 Unknown Rx oxyCODONE /ACETAMINOPHEN [Percocet 1 tab PO Q6H PRN #8 tablet 02/08/18 Unknown Rx 5/325 mg] Prednisone [predniSONE 10 mg 10 mg PO .TAPER #1 tab.ds.pk 05/20/18 Unknown Rx (6-Day Pack, 21 Tabs)] ALBUTEROL Inhaler (OR & NICU) 2 puff IH QID PRN #1 inhalation 12/04/18 Unknown Rx [ProAir HFA Inhaler] Azithromycin [Zithromax Z-ABDIRIZAK] 250 mg PO DAILY #6 tab 12/04/18 Unknown Rx Benzonatate [Tessalon Perles] 100 mg PO Q8HR #15 capsule 12/04/18 Unknown Rx Fluticasone (Nf) [Flovent Hfa(Nf)] 2 puff IH BID #1 puff 12/04/18 Unknown Rx predniSONE [Deltasone] 40 mg PO QDAY 5 Days #10 tab 12/04/18 Unknown Rx Allergies Allergy/AdvReac Type Severity Reaction Status Date / Time latex Allergy Hives Verified 05/16/15 01:08 naproxen sodium [From Aleve] Allergy Hives Verified 05/16/15 01:08 ED Review of Systems ROS: Stated complaint: ASTHMA OUT OF BREATH HEADACHE Other details as noted in HPI Constitutional: denies: chills, fever Eyes: denies: eye pain, eye discharge, vision change ENT: denies: ear pain, throat pain Respiratory: cough, shortness of breath, wheezing Cardiovascular: denies: chest pain, palpitations Endocrine: no symptoms reported Gastrointestinal: denies: abdominal pain, nausea, diarrhea Genitourinary: denies: urgency, dysuria, discharge Musculoskeletal: denies: back pain, joint swelling, arthralgia Skin: denies: rash, lesions Neurological: denies: headache, weakness, paresthesias Psychiatric: denies: anxiety, depression Hematological/Lymphatic: denies: easy bleeding, easy bruising ED Past Medical Hx - Past Medical History Previous Medical History?: Yes Hx Hypertension: Yes Hx CVA: Yes Hx Heart Attack/AMI: No Hx Congestive Heart Failure: Yes Hx Diabetes: Yes Hx Deep Vein Thrombosis: No Hx Pulmonary Embolism: No Hx GERD: No Hx Liver Disease: No Hx Sickle Cell Disease: No Hx Arthritis: No Hx Headaches / Migraines: No Hx Seizures: No Hx Kidney Stones: No Hx Psychiatric Treatment: No Hx Asthma: Yes Hx COPD: No Hx Tuberculosis: No Hx Dementia: No Hx HIV: No Additional medical history: 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 pre- eclampsia, sleep apnea, CPAP machine, OBESITY. - Surgical History Hx Coronary Stent: No Hx Open Heart Surgery: No Hx Pacemaker: Yes Hx Internal Defibrillator: Yes Hx Cholecystectomy: No Hx Appendectomy: Yes Hx Breast Surgery: No Additional Surgical History: hysterectomy, AICD - Social History Smoking Status: Former Smoker Substance Use Type: None - Medications Home Medications: Home Medications Medication Instructions Recorded Confirmed Last Taken Type Fenofibrate,Micronized 134 mg PO DAILY 04/20/16 05/19/18 02/03/18 History [Fenofibrate] Insulin Degludec [Tresiba 40 unit SQ QPM 02/04/18 05/19/18 02/03/18 History Flextouch U-100] Aspirin 325 mg PO DAILY #30 tablet 02/08/18 05/19/18 Unknown Rx Carvedilol [Coreg] 25 mg PO BID #60 tablet 02/08/18 05/19/18 Unknown Rx Digoxin [Lanoxin] 0.125 mg PO DAILY #30 tablet 02/08/18 05/19/18 Unknown Rx Enalapril Maleate [Vasotec] 10 mg PO DAILY #30 tablet 02/08/18 05/19/18 Unknown Rx Ipratropium [Atrovent NEB] 0.5 mg IH Q4HR #30 ml 02/08/18 05/19/18 Unknown Rx Rosuvastatin (Nf) [Crestor] 40 mg PO DAILY 30 Days tablet 02/08/18 05/19/18 Unknown Rx Spironolactone [Aldactone] 25 mg PO QDAY #30 tablet 02/08/18 05/19/18 Unknown Rx Torsemide [Demadex] 20 mg PO DAILY #30 tablet 02/08/18 05/19/18 Unknown Rx oxyCODONE /ACETAMINOPHEN [Percocet 1 tab PO Q6H PRN #8 tablet 02/08/18 05/19/18 Unknown Rx 5/325 mg] Insulin Regular,Human U-500(Nf See Protocol SC TID 05/19/18 05/19/18 Unknown History [HumuLIN R] Prednisone [predniSONE 10 mg 10 mg PO .TAPER #1 tab.ds.pk 05/20/18 Unknown Rx (6-Day Pack, 21 Tabs)] ALBUTEROL Inhaler (OR & NICU) 2 puff IH QID PRN #1 inhalation 12/04/18 Unknown Rx [ProAir HFA Inhaler] Azithromycin [Zithromax Z-ABDIRIZAK] 250 mg PO DAILY #6 tab 12/04/18 Unknown Rx Benzonatate [Tessalon Perles] 100 mg PO Q8HR #15 capsule 12/04/18 Unknown Rx Fluticasone (Nf) [Flovent Hfa(Nf)] 2 puff IH BID #1 puff 12/04/18 Unknown Rx predniSONE [Deltasone] 40 mg PO QDAY 5 Days #10 tab 12/04/18 Unknown Rx ED Physical Exam - General Limitations: No Limitations General appearance: alert, in no apparent distress - Head Head exam: Present: atraumatic, normocephalic - Eye Eye exam: Present: normal appearance, PERRL, EOMI Pupils: Present: normal accommodation - ENT ENT exam: Present: normal orophraynx, mucous membranes moist, TM's normal bilaterally, normal external ear exam - Neck Neck exam: Present: normal inspection, full ROM, lymphadenopathy - Respiratory Respiratory exam: Present: normal lung sounds bilaterally, wheezes, prolonged expiratory. Absent: respiratory distress, rales, rhonchi, stridor, chest wall tenderness - Cardiovascular Cardiovascular Exam: Present: regular rate, normal rhythm, normal heart sounds. Absent: systolic murmur, diastolic murmur, rubs, gallop - GI/Abdominal GI/Abdominal exam: Present: soft, normal bowel sounds. Absent: distended, tend erness, bruit, hernia - Rectal Rectal exam: Present: deferred - Extremities Exam Extremities exam: Present: normal inspection - Back Exam Back exam: Present: normal inspection, full ROM. Absent: tenderness, CVA tenderness (R), CVA tenderness (L), muscle spasm, rash noted - Neurological Exam Neurological exam: Present: alert, oriented X3, CN II-XII intact, normal gait, motor sensory deficit, reflexes normal - Psychiatric Psychiatric exam: Present: normal affect, normal mood - Skin Skin exam: Present: warm, dry, intact, normal color. Absent: rash ED Course Vital Signs 12/03/18 22:42 Temperature 98.7 F Pulse Rate 86 Respiratory 18 Rate Blood Pressure 116/74 O2 Sat by Pulse 98 Oximetry ED Medical Decision Making - Radiology Data Radiology results: report reviewed, image reviewed Ordering Physician: ЮЛИЯ GREWAL Date of Service: 12/03/18 Procedure(s): XR chest routine 2V Accession Number(s): [id number] cc: ЮЛИЯ GREWAL Fluoro Time In Minutes: CHEST 2 VIEWS INDICATION / CLINICAL INFORMATION: sob. COMPARISON: None available. FINDINGS: SUPPORT DEVICES: Left subclavian pacemaker/ICD leads are noted. HEART / MEDIASTINUM: Cardiac silhouette remains enlarged with normal pulmonary vascularity. LUNGS / PLEURA: No significant pulmonary or pleural abnormality. No pneumothorax. ADDITIONAL FINDINGS: No significant additional findings. IMPRESSION: 1. Cardiomegaly without CHF Signer Name: Matthew Luevano MD Signed: 12/03/2018 11:40 PM Workstation Name: [employer] Transcribed By: TL Dictated By: Matthew Luevano MD Electronically Authenticated By: Matthew Luevano MD Signed Date/Time: 12/03/182339 DD/ 38 TD/TT: - Medical Decision Making CXR normal no infiltrates no opacities, this is bronchitis, wheezing resolved pt is now ambulatory in ed without increase sob plan dc to home will refill albuterol and flovent, prednisone, azithromycin, tessalon pearls pt will follow up with pcp in 2-3 days Critical care attestation.: If time is entered above; I have spent that time in minutes in the direct care of this critically ill patient, excluding procedure time. ED Disposition Clinical Impression: Bronchitis URI (upper respiratory infection) Qualifiers: URI type: unspecified viral URI Qualified Code(s): J06.9 - Acute upper respiratory infection, unspecified Disposition: DC-01 TO HOME OR SELFCARE Is pt being admited?: No Does the pt Need Aspirin: No Condition: Stable Instructions: Chronic Bronchitis (ED) Prescriptions: predniSONE [Deltasone] 40 mg PO QDAY 5 Days #10 tab Fluticasone (Nf) [Flovent Hfa(Nf)] 2 puff IH BID #1 puff ALBUTEROL Inhaler (OR & NICU) [ProAir HFA Inhaler] 2 puff IH QID PRN #1 inhalation PRN Reason: Shortness Of Breath Benzonatate [Tessalon Perles] 100 mg PO Q8HR #15 capsule Azithromycin [Zithromax Z-ABDIRIZAK] 250 mg PO DAILY #6 tab Forms: Work/School Release Form(ED) Time of Disposition: 02:59
== END 2018-12-04 03:10 | disposition home or self-care (01) ==
LOC: ED 22:36
DX: J40 Bronchitis, not specified as acute or chronic (principal); J06.9 Acute upper respiratory infection, unspecified; I11.0 Hypertensive heart disease with heart failure; I50.9 Heart failure, unspecified; G47.30 Sleep apnea, unspecified; E11.9 Type 2 diabetes mellitus without complications; E66.9 Obesity, unspecified; Z68.43 Body mass index [BMI] 50.0-59.9, adult; Z95.0 Presence of cardiac pacemaker; Z86.73 Personal history of transient ischemic attack (TIA), and cerebral infarction without residual deficits; Z99.89 Dependence on other enabling machines and devices; Z90.49 Acquired absence of other specified parts of digestive tract; Z90.710 Acquired absence of both cervix and uterus; Z87.891 Personal history of nicotine dependence; Z79.899 Other long term (current) drug therapy; Z88.8 Allergy status to other drugs, medicaments and biological substances; Z91.040 Latex allergy status
CPT/HCPCS: 71046; 94640; 96372; 99284; J1100

== ENCOUNTER 2018-12-06 08:02 | Emergency (ER) | payer MEDICARE ==
[2018-12-06] MEDS ORDERED: PROVENTIL IH ONE ×2 (08:54→10:38)
[2018-12-06] MEDS ORDERED: ATROVENT IH ONE ×2 (08:54→10:38)
[2018-12-06] MEDS ORDERED: SOLU-Medrol IM ONE (08:54)
--- NOTE | 2018-12-06 08:57 | Emergency Department Report ---
ED Asthma HPI - General Chief Complaint: Upper Respiratory Infection Stated Complaint: BRONCHITIS Time Seen by Provider: 12/06/18 08:41 Source: patient Mode of arrival: Ambulatory Limitations: No Limitations - History of Present Illness Initial Comments: Patient is 43 years old with history of asthmatic bronchitis on albuterol and Atrovent. Patient was seen here 2-3 days ago and she was given prescription for albuterol she went to see her primary care physician but she is unable to refill her albuterol because of insurance issue. Patient is complaining of shortness of breath and wheezing. Patient denied any fever or chills. No chest pain. MD Complaint: "asthma attack", wheezing -: days(s) (3) Severity: moderate Context: recent URI Associated Symptoms: productive cough Treatments Prior to Arrival: inhaled bronchodilator - Related Data Home Medications Medication Instructions Recorded Confirmed Last Taken Fenofibrate,Micronized 134 mg PO DAILY 04/20/16 05/19/18 02/03/18 [Fenofibrate] Insulin Degludec [Tresiba 40 unit SQ QPM 02/04/18 05/19/18 02/03/18 Flextouch U-100] Insulin Regular,Human U-500(Nf See Protocol SC TID 05/19/18 05/19/18 Unknown [HumuLIN R] Previous Rx's Medication Instructions Recorded Last Taken Type Aspirin 325 mg PO DAILY #30 tablet 02/08/18 Unknown Rx Carvedilol [Coreg] 25 mg PO BID #60 tablet 02/08/18 Unknown Rx Digoxin [Lanoxin] 0.125 mg PO DAILY #30 tablet 02/08/18 Unknown Rx Enalapril Maleate [Vasotec] 10 mg PO DAILY #30 tablet 02/08/18 Unknown Rx Ipratropium [Atrovent NEB] 0.5 mg IH Q4HR #30 ml 02/08/18 Unknown Rx Rosuvastatin (Nf) [Crestor] 40 mg PO DAILY 30 Days tablet 02/08/18 Unknown Rx Spironolactone [Aldactone] 25 mg PO QDAY #30 tablet 02/08/18 Unknown Rx Torsemide [Demadex] 20 mg PO DAILY #30 tablet 02/08/18 Unknown Rx oxyCODONE /ACETAMINOPHEN [Percocet 1 tab PO Q6H PRN #8 tablet 02/08/18 Unknown Rx 5/325 mg] Prednisone [predniSONE 10 mg 10 mg PO .TAPER #1 tab.ds.pk 05/20/18 Unknown Rx (6-Day Pack, 21 Tabs)] ALBUTEROL Inhaler (OR & NICU) 2 puff IH QID PRN #1 inhalation 12/04/18 Unknown Rx [ProAir HFA Inhaler] Azithromycin [Zithromax Z-ABDIRIZAK] 250 mg PO DAILY #6 tab 12/04/18 Unknown Rx Benzonatate [Tessalon Perles] 100 mg PO Q8HR #15 capsule 12/04/18 Unknown Rx Fluticasone (Nf) [Flovent Hfa(Nf)] 2 puff IH BID #1 puff 12/04/18 Unknown Rx predniSONE [Deltasone] 40 mg PO QDAY 5 Days #10 tab 12/04/18 Unknown Rx Allergies Allergy/AdvReac Type Severity Reaction Status Date / Time latex Allergy Hives Verified 05/16/15 01:08 naproxen sodium [From Aleve] Allergy Hives Verified 05/16/15 01:08 ED Review of Systems ROS: Stated complaint: BRONCHITIS Other details as noted in HPI Comment: All other systems reviewed and negative Constitutional: denies: chills, fever Respiratory: cough, shortness of breath, SOB with exertion, SOB at rest, wheezing Cardiovascular: denies: chest pain, palpitations Gastrointestinal: denies: abdominal pain, nausea Neurological: denies: headache ED Past Medical Hx - Past Medical History Hx Hypertension: Yes Hx CVA: Yes Hx Heart Attack/AMI: No Hx Congestive Heart Failure: Yes Hx Diabetes: Yes Hx Deep Vein Thrombosis: No Hx Pulmonary Embolism: No Hx GERD: No Hx Liver Disease: No Hx Sickle Cell Disease: No Hx Arthritis: No Hx Headaches / Migraines: No Hx Seizures: No Hx Kidney Stones: No Hx Psychiatric Treatment: No Hx Asthma: Yes Hx COPD: No Hx Tuberculosis: No Hx Dementia: No Hx HIV: No Additional medical history: 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 pre-eclampsia, sleep apnea, CPAP machine, OBESITY. - Surgical History Hx Coronary Stent: No Hx Open Heart Surgery: No Hx Pacemaker: Yes Hx Internal Defibrillator: Yes Hx Cholecystectomy: No Hx Appendectomy: Yes Hx Breast Surgery: No Additional Surgical History: hysterectomy, AICD - Social History Smoking Status: Former Smoker Substance Use Type: None - Medications Home Medications: Home Medications Medication Instructions Recorded Confirmed Last Taken Type Fenofibrate,Micronized 134 mg PO DAILY 04/20/16 05/19/18 02/03/18 History [Fenofibrate] Insulin Degludec [Tresiba 40 unit SQ QPM 02/04/18 05/19/18 02/03/18 History Flextouch U-100] Aspirin 325 mg PO DAILY #30 tablet 02/08/18 05/19/18 Unknown Rx Carvedilol [Coreg] 25 mg PO BID #60 tablet 02/08/18 05/19/18 Unknown Rx Digoxin [Lanoxin] 0.125 mg PO DAILY #30 tablet 02/08/18 05/19/18 Unknown Rx Enalapril Maleate [Vasotec] 10 mg PO DAILY #30 tablet 02/08/18 05/19/18 Unknown Rx Ipratropium [Atrovent NEB] 0.5 mg IH Q4HR #30 ml 02/08/18 05/19/18 Unknown Rx Rosuvastatin (Nf) [Crestor] 40 mg PO DAILY 30 Days tablet 02/08/18 05/19/18 Unknown Rx Spironolactone [Aldactone] 25 mg PO QDAY #30 tablet 02/08/18 05/19/18 Unknown Rx Torsemide [Demadex] 20 mg PO DAILY #30 tablet 02/08/18 05/19/18 Unknown Rx oxyCODONE /ACETAMINOPHEN [Percocet 1 tab PO Q6H PRN #8 tablet 02/08/18 05/19/18 Unknown Rx 5/325 mg] Insulin Regular,Human U-500(Nf See Protocol SC TID 05/19/18 05/19/18 Unknown History [HumuLIN R] Prednisone [predniSONE 10 mg 10 mg PO .TAPER #1 tab.ds.pk 05/20/18 Unknown Rx (6-Day Pack, 21 Tabs)] ALBUTEROL Inhaler (OR & NICU) 2 puff IH QID PRN #1 inhalation 12/04/18 Unknown Rx [ProAir HFA Inhaler] Azithromycin [Zithromax Z-ABDIRIZAK] 250 mg PO DAILY #6 tab 12/04/18 Unknown Rx Benzonatate [Tessalon Perles] 100 mg PO Q8HR #15 capsule 12/04/18 Unknown Rx Fluticasone (Nf) [Flovent Hfa(Nf)] 2 puff IH BID #1 puff 12/04/18 Unknown Rx predniSONE [Deltasone] 40 mg PO QDAY 5 Days #10 tab 12/04/18 Unknown Rx ED Physical Exam - General Limitations: No Limitations General appearance: alert, in no apparent distress - Head Head exam: Present: atraumatic, normocephalic, normal inspection - Eye Eye exam: Present: normal appearance - ENT ENT exam: Present: normal exam, normal orophraynx, mucous membranes moist - Neck Neck exam: Present: normal inspection, full ROM. Absent: tenderness, meningismus - Respiratory Respiratory exam: Present: wheezes. Absent: respiratory distress, rales, rhonchi, stridor, chest wall tenderness, accessory muscle use, decreased breath sounds, prolonged expiratory - Cardiovascular Cardiovascular Exam: Present: regular rate, normal rhythm, normal heart sounds - Extremities Exam Extremities exam: Present: normal inspection, full ROM, normal capillary refill. Absent: tenderness, pedal edema, calf tenderness - Neurological Exam Neurological exam: Present: alert, oriented X3, CN II-XII intact, normal gait - Skin Skin exam: Present: warm, intact, normal color ED Course Vital Signs 12/06/18 08:16 Temperature 97.4 F L Pulse Rate 73 Respiratory 16 Rate Blood Pressure 104/67 [Left] O2 Sat by Pulse 99 Oximetry Critical care attestation.: If time is entered above; I have spent that time in minutes in the direct care of this critically ill patient, excluding procedure time. ED Disposition Clinical Impression: Asthma exacerbation Disposition: DC-01 TO HOME OR SELFCARE Is pt being admited?: No Condition: Stable Instructions: Asthma (ED) Referrals: EVER HERNANDEZ MD [Primary Care Provider] - 3-5 Days
[2018-12-06 11:55] VITALS: BP 118/79
== END 2018-12-06 11:53 | disposition home or self-care (01) ==
LOC: ED 08:02
DX: J45.901 Unspecified asthma with (acute) exacerbation (principal); I11.0 Hypertensive heart disease with heart failure; I50.9 Heart failure, unspecified; E11.9 Type 2 diabetes mellitus without complications; G47.30 Sleep apnea, unspecified; E66.9 Obesity, unspecified; Z68.43 Body mass index [BMI] 50.0-59.9, adult; Z95.1 Presence of aortocoronary bypass graft; Z86.73 Personal history of transient ischemic attack (TIA), and cerebral infarction without residual deficits; Z91.040 Latex allergy status; Z88.8 Allergy status to other drugs, medicaments and biological substances; Z79.4 Long term (current) use of insulin; Z79.82 Long term (current) use of aspirin; Z79.899 Other long term (current) drug therapy; Z90.49 Acquired absence of other specified parts of digestive tract; Z90.710 Acquired absence of both cervix and uterus; Z87.891 Personal history of nicotine dependence
CPT/HCPCS: 94640; 96372; 99283; J2930; 94644

== ENCOUNTER 2018-12-23 15:56 | Outpatient (CLI) | payer MEDICARE ==
[2018-12-23 16:43] LABS: Bacteria,Urine 1+ /HPF (Negative); Bilirubin,Urine NEG (Negative); Blood,Urine NEG (Negative); Color,Urine Yellow (Yellow); Protein,Urine <15 mg/dL mg/dL (Negative); Urobilinogen,Urine < 2.0 mg/dL (<2.0)
== END 2018-12-23 15:57 | disposition home or self-care (01) ==
LOC: LAB 15:56
PROVIDERS: ATTEND Internal Medicine
DX: N39.0 Urinary tract infection, site not specified (principal); A64 Unspecified sexually transmitted disease; I11.0 Hypertensive heart disease with heart failure; I50.9 Heart failure, unspecified; E78.00 Pure hypercholesterolemia, unspecified; J45.909 Unspecified asthma, uncomplicated; E11.9 Type 2 diabetes mellitus without complications
CPT/HCPCS: 36415; 81001; 86592; 87529; 87591; 87806

== ENCOUNTER 2019-01-27 17:15 | Emergency (ER) | payer MEDICARE ==
[2019-01-27] MEDS ORDERED: DUONEB *Not for PRN Use IH ONE ×2 (17:19→18:26)
[2019-01-27] MEDS ORDERED: SOLU-Medrol IV ONE (18:27)
[2019-01-27] MEDS ORDERED: TORADOL IV ONE (18:27)
--- NOTE | 2019-01-27 19:32 | Emergency Department Report ---
ED Asthma HPI - General Chief Complaint: Adult Asthma Stated Complaint: BRYANT Time Seen by Provider: 01/27/19 19:24 Source: patient Mode of arrival: Ambulatory Limitations: No Limitations - History of Present Illness Initial Comments: Erum is a very pleasant 43-year-old female with a history of asthma with previous hospitalization no history of intubation who presents to the ER with wheezing shortness of breath and productive cough. She also has history of tobacco abuse. She last smoked 2 days ago on Saturday. The hot environment temperatures trigger her asthma. She uses albuterol nebulizer at home. Past medical history includes asthma, CHF, CVA, diabetes mellitus, hypertension, sleep apnea. MD Complaint: "asthma attack", shortness of breath, wheezing -: Gradual, days(s) (1) Asthma History: history of frequent attac, history of prior ED visit Severity: moderate Context: smoke exposure Associated Symptoms: productive cough - Related Data Home Medications Medication Instructions Recorded Confirmed Last Taken Fenofibrate,Micronized 134 mg PO DAILY 04/20/16 05/19/18 02/03/18 [Fenofibrate] Insulin Degludec [Tresiba 40 unit SQ QPM 02/04/18 05/19/18 02/03/18 Flextouch U-100] Insulin Regular,Human U-500(Nf See Protocol SC TID 05/19/18 05/19/18 Unknown [HumuLIN R] Previous Rx's Medication Instructions Recorded Last Taken Type Aspirin 325 mg PO DAILY #30 tablet 02/08/18 Unknown Rx Carvedilol [Coreg] 25 mg PO BID #60 tablet 02/08/18 Unknown Rx Digoxin [Lanoxin] 0.125 mg PO DAILY #30 tablet 02/08/18 Unknown Rx Enalapril Maleate [Vasotec] 10 mg PO DAILY #30 tablet 02/08/18 Unknown Rx Ipratropium [Atrovent NEB] 0.5 mg IH Q4HR #30 ml 02/08/18 Unknown Rx Rosuvastatin (Nf) [Crestor] 40 mg PO DAILY 30 Days tablet 02/08/18 Unknown Rx Spironolactone [Aldactone] 25 mg PO QDAY #30 tablet 02/08/18 Unknown Rx Torsemide [Demadex] 20 mg PO DAILY #30 tablet 02/08/18 Unknown Rx oxyCODONE /ACETAMINOPHEN [Percocet 1 tab PO Q6H PRN #8 tablet 02/08/18 Unknown Rx 5/325 mg] Prednisone [predniSONE 10 mg 10 mg PO .TAPER #1 tab.ds.pk 05/20/18 Unknown Rx (6-Day Pack, 21 Tabs)] ALBUTEROL Inhaler (OR & NICU) 2 puff IH QID PRN #1 inhalation 12/04/18 Unknown Rx [ProAir HFA Inhaler] Azithromycin [Zithromax Z-ABDIRIZAK] 250 mg PO DAILY #6 tab 12/04/18 Unknown Rx Benzonatate [Tessalon Perles] 100 mg PO Q8HR #15 capsule 12/04/18 Unknown Rx Fluticasone (Nf) [Flovent Hfa(Nf)] 2 puff IH BID #1 puff 12/04/18 Unknown Rx predniSONE [Deltasone] 40 mg PO QDAY 5 Days #10 tab 12/04/18 Unknown Rx Albuterol Sulfate [Albuterol 0.63% 0.63 mg IH TID PRN #10 vial 12/06/18 Unknown Rx NEBS] ALBUTEROL NEB's [Proventil 0.083% 2.5 mg IH TID PRN #1 box 01/27/19 Unknown Rx NEBS] Doxycycline Hyclate [Doxycycline 100 mg PO Q12HR 7 Days #14 tab 01/27/19 Unknown Rx Hyclate TAB] Allergies Allergy/AdvReac Type Severity Reaction Status Date / Time latex Allergy Hives Verified 05/16/15 01:08 naproxen sodium [From Aleve] Allergy Hives Verified 05/16/15 01:08 ED Review of Systems ROS: Stated complaint: BRYANT Other details as noted in HPI Comment: All other systems reviewed and negative Constitutional: denies: fever, malaise Respiratory: cough, shortness of breath, wheezing Cardiovascular: denies: chest pain Gastrointestinal: denies: abdominal pain, nausea, vomiting ED Past Medical Hx - Past Medical History Previous Medical History?: Yes Hx Hypertension: Yes Hx CVA: Yes Hx Heart Attack/AMI: No Hx Congestive Heart Failure: Yes Hx Diabetes: Yes Hx Deep Vein Thrombosis: No Hx Pulmonary Embolism: No Hx GERD: No Hx Liver Disease: No Hx Sickle Cell Disease: No Hx Arthritis: No Hx Headaches / Migraines: No Hx Seizures: No Hx Kidney Stones: No Hx Psychiatric Treatment: No Hx Asthma: Yes Hx COPD: No Hx Tuberculosis: No Hx Dementia: No Hx HIV: No Additional medical history: 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 pre- eclampsia, sleep apnea, CPAP machine, OBESITY. - Surgical History Past Surgical History?: Yes Hx Coronary Stent: No Hx Open Heart Surgery: No Hx Pacemaker: Yes Hx Internal Defibrillator: Yes Hx Cholecystectomy: No Hx Appendectomy: Yes Hx Breast Surgery: No Additional Surgical History: hysterectomy, AICD - Social History Smoking Status: Former Smoker Substance Use Type: None - Medications Home Medications: Home Medications Medication Instructions Recorded Confirmed Last Taken Type Fenofibrate,Micronized 134 mg PO DAILY 04/20/16 05/19/18 02/03/18 History [Fenofibrate] Insulin Degludec [Tresiba 40 unit SQ QPM 02/04/18 05/19/18 02/03/18 History Flextouch U-100] Aspirin 325 mg PO DAILY #30 tablet 02/08/18 05/19/18 Unknown Rx Carvedilol [Coreg] 25 mg PO BID #60 tablet 02/08/18 05/19/18 Unknown Rx Digoxin [Lanoxin] 0.125 mg PO DAILY #30 tablet 02/08/18 05/19/18 Unknown Rx Enalapril Maleate [Vasotec] 10 mg PO DAILY #30 tablet 02/08/18 05/19/18 Unknown Rx Ipratropium [Atrovent NEB] 0.5 mg IH Q4HR #30 ml 02/08/18 05/19/18 Unknown Rx Rosuvastatin (Nf) [Crestor] 40 mg PO DAILY 30 Days tablet 02/08/18 05/19/18 Unknown Rx Spironolactone [Aldactone] 25 mg PO QDAY #30 tablet 02/08/18 05/19/18 Unknown Rx Torsemide [Demadex] 20 mg PO DAILY #30 tablet 02/08/18 05/19/18 Unknown Rx oxyCODONE /ACETAMINOPHEN [Percocet 1 tab PO Q6H PRN #8 tablet 02/08/18 05/19/18 Unknown Rx 5/325 mg] Insulin Regular,Human U-500(Nf See Protocol SC TID 05/19/18 05/19/18 Unknown History [HumuLIN R] Prednisone [predniSONE 10 mg 10 mg PO .TAPER #1 tab.ds.pk 05/20/18 Unknown Rx (6-Day Pack, 21 Tabs)] ALBUTEROL Inhaler (OR & NICU) 2 puff IH QID PRN #1 inhalation 12/04/18 Unknown Rx [ProAir HFA Inhaler] Azithromycin [Zithromax Z-ABDIRIZAK] 250 mg PO DAILY #6 tab 12/04/18 Unknown Rx Benzonatate [Tessalon Perles] 100 mg PO Q8HR #15 capsule 12/04/18 Unknown Rx Fluticasone (Nf) [Flovent Hfa(Nf)] 2 puff IH BID #1 puff 12/04/18 Unknown Rx predniSONE [Deltasone] 40 mg PO QDAY 5 Days #10 tab 12/04/18 Unknown Rx Albuterol Sulfate [Albuterol 0.63% 0.63 mg IH TID PRN #10 vial 12/06/18 Unknown Rx NEBS] ALBUTEROL NEB's [Proventil 0.083% 2.5 mg IH TID PRN #1 box 01/27/19 Unknown Rx NEBS] Doxycycline Hyclate [Doxycycline 100 mg PO Q12HR 7 Days #14 tab 01/27/19 Unknown Rx Hyclate TAB] ED Physical Exam - General Limitations: No Limitations General appearance: alert, in no apparent distress, other (speaking full word sentences) - Head Head exam: Present: atraumatic, normocephalic - Eye Eye exam: Present: normal appearance - ENT ENT exam: Present: mucous membranes moist - Neck Neck exam: Present: normal inspection - Respiratory Respiratory exam: Present: normal lung sounds bilaterally. Absent: respiratory distress, wheezes, rales, rhonchi - Cardiovascular Cardiovascular Exam: Present: regular rate, normal rhythm, normal heart sounds. Absent: systolic murmur, diastolic murmur, rubs, gallop - GI/Abdominal GI/Abdominal exam: Present: soft, normal bowel sounds. Absent: distended, tenderness, guarding, rebound - Extremities Exam Extremities exam: Present: normal inspection - Neurological Exam Neurological exam: Present: alert, oriented X3 - Psychiatric Psychiatric exam: Present: normal affect, normal mood - Skin Skin exam: Present: warm, dry, intact, normal color. Absent: rash ED Medical Decision Making - Medical Decision Making Ms. Melton presents with a mild asthma exacerbation. She had clear breath sounds upon my initial examination. I have prescribed antibiotics and albuterol nebulizer solution. Prednisone held due to history of diabetes mellitus. Discharged home. Prescribed doxycycline. Antibiotics indicated with history of tobacco abuse. Critical care attestation.: If time is entered above; I have spent that time in minutes in the direct care of this critically ill patient, excluding procedure time. ED Disposition Clinical Impression: Acute asthma exacerbation, T2DM (type 2 diabetes mellitus) Disposition: TO HOME OR SELFCARE Is pt being admited?: No Does the pt Need Aspirin: No Condition: Stable Instructions: Asthma (ED), How to Stop Smoking (ED) Prescriptions: Doxycycline Hyclate [Doxycycline Hyclate TAB] 100 mg PO Q12HR 7 Days #14 tab ALBUTEROL NEB's [Proventil 0.083% NEBS] 2.5 mg IH TID PRN #1 box PRN Reason: Wheezing Referrals: PRIMARY CARE, [Primary Care Provider] - 3-5 Days
[2019-01-27 21:38] VITALS: BP 128/62
== END 2019-01-27 21:37 | disposition home or self-care (01) ==
LOC: ED 17:15
DX: J45.901 Unspecified asthma with (acute) exacerbation (principal); E11.9 Type 2 diabetes mellitus without complications; I11.0 Hypertensive heart disease with heart failure; I50.9 Heart failure, unspecified; G47.30 Sleep apnea, unspecified; E66.9 Obesity, unspecified; Z86.73 Personal history of transient ischemic attack (TIA), and cerebral infarction without residual deficits; Z95.810 Presence of automatic (implantable) cardiac defibrillator; Z90.49 Acquired absence of other specified parts of digestive tract; Z90.710 Acquired absence of both cervix and uterus; Z87.891 Personal history of nicotine dependence; Z79.82 Long term (current) use of aspirin; Z79.899 Other long term (current) drug therapy
CPT/HCPCS: 94640; 96374; 96375; 99283; J1885; J2930

== ENCOUNTER 2019-01-28 20:39 | Inpatient (IN) | payer MEDICARE ==
--- NOTE | 2019-01-28 21:26 | Emergency Department Report ---
Blank Doc - Documentation Documentation: 43-year-old female that presents with SOB and wheezing. This initial assessment/diagnostic orders/clinical plan/treatment(s) is/are subject to change based on patient's health status, clinical progression and re- assessment by fellow clinical providers in the ED. Further treatment and workup at subsequent clinical providers discretion. Patient/guardians urged not to elope from the ED as their condition may be serious if not clinically assessed and managed. Initial orders include: 1- Patient sent to [facility] for further evaluation and treatment 2- breathing treatment/steroids
[2019-01-28] MEDS ORDERED: ATROVENT IH ONE (21:27)
[2019-01-28] MEDS ORDERED: PROVENTIL IH ONE (21:27)
[2019-01-28] MEDS ORDERED: TYLENOL PO ONE (22:10)
[2019-01-28] MEDS ORDERED: TYLENOL ONE (22:13)
[2019-01-28 22:24] LABS: Basophils % (Auto) 0.1 % (0.0-1.8); Hematocrit 44.7 % (30.3-42.9); Lymphocytes # (Auto) 1.7 K/mm3 (1.2-5.4); Lymphocytes % (Auto) 11.2 % (13.4-35.0); Mean Corpuscular HGB Conc 34 % (30-34); Mean Corpuscular Volume 90 fl (79-97); Monocytes # (Auto) 0.9 K/mm3 (0.0-0.8); Monocytes % (Auto) 5.7 % (0.0-7.3); Platelet Count 208 K/mm3 (140-440); Red Blood Count 4.95 M/mm3 (3.65-5.03); Red Cell Distribution Width 14.4 % (13.2-15.2)
[2019-01-28 22:47] LABS: BUN/Creatinine Ratio 32; Blood Urea Nitrogen 48 mg/dL (7-17); Calcium 9.8 mg/dL (8.4-10.2); Hemolysis Index 7
[2019-01-28 23:03] LABS: INR 1.12 (0.87-1.13)
[2019-01-28 23:04] LABS: Partial Thromboplastin Time 23.7 Sec. (24.2-36.6)
--- NOTE | 2019-01-28 23:38 | Emergency Department Report ---
ED Shortness of Breath HPI - General Chief Complaint: Dyspnea/Respdistress Stated Complaint: BRYANT,ASTHMA, FEVER Time Seen by Provider: 01/28/19 21:25 Source: patient Mode of arrival: Ambulatory Limitations: No Limitations - History of Present Illness Initial Comments: Mrs. Melton is a 43-year-old female with a history of asthma since age 18, tobacco abuse, obstructive sleep apnea, hypertension, cardiomyopathy with pacemaker AICD, diabetes mellitus, severe obesity who presents with shortness of breath. I evaluated Mrs. Melton on yesterday. She had wheezing on exam on yesterday. She improvved after short ED observation period. She is currently on antibiotic and prednisone therapy. She had persistent shortness of breath and returned to the emergency department. She has subjective fever today. She has productive cough with white phlegm. Persistent shortness of breath. Denies chest pain. Has had several hospitalizations related to asthma. PCP Dr. Arevalo Mrs. Melton has a new fireproof door maker She can not recall the name of this physician. MD Complaint: shortness of breath -: Gradual, days(s) (3) Severity: moderate Consistency: constant Improves With: bronchodilators Worsens With: nothing Known History Of: asthma, other (cardiomyopathy) Context: smoke/fume exposure, other (normal asthma trigger: Hot temperatures) Associated Symptoms: fever, cough, sputum production - Related Data Home Medications Medication Instructions Recorded Confirmed Last Taken Insulin Regular,Human U-500(Nf See Protocol SC TID 05/19/18 01/29/19 Unknown [HumuLIN R] Enalapril Maleate [Vasotec] 5 mg PO DAILY 01/29/19 01/29/19 Unknown Ipratropium [Atrovent NEB] 0.5 mg IH Q4HR PRN 01/29/19 01/29/19 Unknown Previous Rx's Medication Instructions Recorded Last Taken Type Aspirin 325 mg PO DAILY #30 tablet 02/08/18 Unknown Rx Carvedilol [Coreg] 25 mg PO BID #60 tablet 02/08/18 Unknown Rx Digoxin [Lanoxin] 0.125 mg PO DAILY #30 tablet 02/08/18 Unknown Rx Rosuvastatin (Nf) [Crestor] 40 mg PO DAILY 30 Days tablet 02/08/18 Unknown Rx Spironolactone [Aldactone] 25 mg PO QDAY #30 tablet 02/08/18 Unknown Rx Torsemide [Demadex] 20 mg PO DAILY #30 tablet 02/08/18 Unknown Rx Prednisone [predniSONE 10 mg 10 mg PO .TAPER #1 tab.ds.pk 05/20/18 Unknown Rx (6-Day Pack, 21 Tabs)] ALBUTEROL Inhaler (OR & NICU) 2 puff IH QID PRN #1 inhalation 12/04/18 Unknown Rx [ProAir HFA Inhaler] Albuterol Sulfate [Albuterol 0.63% 0.63 mg IH TID PRN #10 vial 12/06/18 Unknown Rx NEBS] ALBUTEROL NEB's [Proventil 0.083% 2.5 mg IH TID PRN #1 box 01/27/19 Unknown Rx NEBS] Allergies Allergy/AdvReac Type Severity Reaction Status Date / Time latex Allergy Hives Verified 05/16/15 01:08 naproxen sodium [From Aleve] Allergy Hives Verified 05/16/15 01:08 ED Review of Systems ROS: Stated complaint: BRYANT,ASTHMA, FEVER Other details as noted in HPI Comment: All other systems reviewed and negative Constitutional: fever, malaise Respiratory: cough, shortness of breath, wheezing Cardiovascular: denies: chest pain Gastrointestinal: denies: abdominal pain, nausea, vomiting ED Past Medical Hx - Past Medical History Previous Medical History?: Yes Hx Hypertension: Yes Hx CVA: Yes Hx Heart Attack/AMI: No Hx Congestive Heart Failure: Yes Hx Diabetes: Yes Hx Deep Vein Thrombosis: No Hx Pulmonary Embolism: No Hx GERD: No Hx Liver Disease: No Hx Sickle Cell Disease: No Hx Arthritis: No Hx Headaches / Migraines: No Hx Seizures: No Hx Kidney Stones: No Hx Psychiatric Treatment: No Hx Asthma: Yes Hx COPD: No Hx Tuberculosis: No Hx Dementia: No Hx HIV: No Additional medical history: 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 pre- eclampsia, sleep apnea, CPAP machine, OBESITY. - Surgical History Past Surgical History?: Yes Hx Coronary Stent: No Hx Open Heart Surgery: No Hx Pacemaker: Yes Hx Internal Defibrillator: Yes Hx Cholecystectomy: No Hx Appendectomy: Yes Hx Breast Surgery: No Additional Surgical History: hysterectomy, AICD - Social History Smoking Status: Former Smoker Substance Use Type: None - Medications Home Medications: Home Medications Medication Instructions Recorded Confirmed Last Taken Type Aspirin 325 mg PO DAILY #30 tablet 02/08/18 01/29/19 Unknown Rx Carvedilol [Coreg] 25 mg PO BID #60 tablet 02/08/18 01/29/19 Unknown Rx Digoxin [Lanoxin] 0.125 mg PO DAILY #30 tablet 02/08/18 01/29/19 Unknown Rx Rosuvastatin (Nf) [Crestor] 40 mg PO DAILY 30 Days tablet 02/08/18 01/29/19 Unknown Rx Spironolactone [Aldactone] 25 mg PO QDAY #30 tablet 02/08/18 01/29/19 Unknown Rx Torsemide [Demadex] 20 mg PO DAILY #30 tablet 02/08/18 01/29/19 Unknown Rx Insulin Regular,Human U-500(Nf See Protocol SC TID 05/19/18 01/29/19 Unknown History [HumuLIN R] Prednisone [predniSONE 10 mg 10 mg PO .TAPER #1 tab.ds.pk 05/20/18 01/29/19 Unknown Rx (6-Day Pack, 21 Tabs)] ALBUTEROL Inhaler (OR & NICU) 2 puff IH QID PRN #1 inhalation 12/04/18 01/29/19 Unknown Rx [ProAir HFA Inhaler] Albuterol Sulfate [Albuterol 0.63% 0.63 mg IH TID PRN #10 vial 12/06/18 01/29/19 Unknown Rx NEBS] ALBUTEROL NEB's [Proventil 0.083% 2.5 mg IH TID PRN #1 box 01/27/19 01/29/19 Unknown Rx NEBS] Enalapril Maleate [Vasotec] 5 mg PO DAILY 01/29/19 01/29/19 Unknown History Ipratropium [Atrovent NEB] 0.5 mg IH Q4HR PRN 01/29/19 01/29/19 Unknown History ED Physical Exam - General Limitations: No Limitations General appearance: alert, in no apparent distress, other (speaking full word sentences, frequent cough) - Head Head exam: Present: atraumatic, normocephalic - Eye Eye exam: Present: normal appearance - ENT ENT exam: Present: mucous membranes moist - Neck Neck exam: Present: normal inspection - Respiratory Respiratory exam: Present: wheezes, decreased breath sounds, prolonged expiratory. Absent: respiratory distress, rales, rhonchi, stridor, accessory muscle use - Cardiovascular Cardiovascular Exam: Present: regular rate, normal rhythm, normal heart sounds. Absent: systolic murmur, diastolic murmur, rubs, gallop - GI/Abdominal GI/Abdominal exam: Present: soft, normal bowel sounds. Absent: distended, tenderness, guarding, rebound - Extremities Exam Extremities exam: Present: normal inspection - Back Exam Back exam: Present: normal inspection - Neurological Exam Neurological exam: Present: alert, oriented X3 - Psychiatric Psychiatric exam: Present: normal affect, normal mood - Skin Skin exam: Present: warm, dry, intact, normal color. Absent: rash ED Course Vital Signs 01/28/19 01/28/19 01/28/19 21:26 21:54 21:55 Temperature 98.3 F Pulse Rate 75 Pulse Rate [ 82 Anterior Bilateral Throughout] Respiratory 22 26 H Rate Respiratory 30 H Rate [Anterior Bilateral Throughout] Blood Pressure 114/60 Blood Pressure [Right] O2 Sat by Pulse 93 Oximetry 01/28/19 01/29/19 22:13 00:01 Temperature 97.8 F Pulse Rate 79 Pulse Rate [ Anterior Bilateral Throughout] Respiratory 16 18 Rate Respiratory Rate [Anterior Bilateral Throughout] Blood Pressure Blood Pressure 104/59 [Right] O2 Sat by Pulse 96 Oximetry ED Medical Decision Making - Lab Data Result diagrams: 01/28/19 21:36 01/28/19 21:36 - EKG Data 01/29/19 00:05 EKG obtained 2344 AV dual pacing wide N paced QRSS elevation of signs of ischemia abnormal axis - Radiology Data Radiology results: image reviewed interpreted by me: Chest radiographs two-view PA and lateral according to my evaluation revealed cardiac device in place: Significant cardiomegaly, atelectasis in the right lower lobe no pneumothorax interstitial fullness - Medical Decision Making 1. Acute asthma exacerbation persistent symptoms since I evaluated the patient on yesterday. She will be admitted to hospital service for definitive treatment and evaluation. She has persistent wheezing and respiratory discomfort. Upon my review, leukocytosis has been persistent. No evidence of pneumonia or sepsis. Recent use of steroids could account for this. Kidney function has worsened over the past 2 years. Will need outpatient emergency management coordinator. Would benefit from gentle hydration. Admitted to hospitalist service in stable condition. She has taken her home prescription of prednisone and doxycycline today. She received continuous nebulizer therapy in the emergency department Critical care attestation.: If time is entered above; I have spent that time in minutes in the direct care of this critically ill patient, excluding procedure time. ED Disposition Clinical Impression: Acute renal insufficiency, Acute asthma exacerbation Disposition: OP ADMIT IP TO THIS HOSP Is pt being admited?: Yes Does the pt Need Aspirin: No Condition: Stable
--- NOTE | 2019-01-29 00:50 | XRay Report ---
CHEST 2 VIEWS 0018 INDICATION / CLINICAL INFORMATION: Asthma attack, chest pressure, shortness of breath, fever, duratio n 2 days COMPARISON: 12/03/2018 FINDINGS: SUPPORT DEVICES: Pacer appears unchanged. HEART / MEDIASTINUM: Heart is mildly enlarged. LUNGS / PLEURA: Pulmonary vascularity appears within normal limits. Mild atelectasis is seen in the r ight base. No definite areas of consolidation are seen. No pneumothorax. ADDITIONAL FINDINGS: No significant additional findings. IMPRESSION: No significant acute abnormality Signer Name: Klaus Argueta MD Signed: 01/29/2019 12:45 AM Workstation Name: [id number]
[2019-01-29] MEDS ORDERED: TYLENOL ONE (02:42)
[2019-01-29] MEDS ORDERED: PROVENTIL IH PRN (02:43)
[2019-01-29] MEDS ORDERED: NACL 0.9% 1000 ML 1,000 ML IV ONE (02:44)
[2019-01-29] MEDS ORDERED: TYLENOL PO ONE (02:44)
[2019-01-29] MEDS ORDERED: PROAIR IH PRN (02:45)
[2019-01-29] MEDS ORDERED: D50W (25GM) Syringe IV PRN (02:52)
--- NOTE | 2019-01-29 03:17 | History and Physical Report ---
<JAMEL BRO - Last Filed: 01/29/19 03:23> History of Present Illness Date of examination: 01/29/19 Date of admission: 01/29/2019 Chief complaint: SOB/ Asthma History of present illness: 43-year-old female who is an ongoing smoker with history of asthma, hypertension, diabetes, severe obesity, CVA, cardiomyopathy S/P AICD presents to [facility] ED with complaints of shortness of breath and difficulty in breathing. Patient also complains of cough with clear thin to thick sputum production.Patient was seen in the ED on 01/27/19 with similar complaints. She was treated with nebulizer treatments and systemic steroids. She was discharged home on prednisone taper and oral antibiotics. Patient states that she was able to fill the prescription and has taken one dose of steroids and antibiotics. However, her symptoms did not improve. She continued to have audible wheezing, shortness of breath and difficulty breathing. She attempted to take the nebulizer treatment with no relief, so she decided to return to ED for further evaluation and treatment. Denies: n/v/d, discolored sputum production, hemoptysis, or chest pain Past History Past Medical History: diabetes, heart failure, hypertension, stroke, sarcoidosis (MEJIA non compliant with CPAP, severe obesity, cardiomyopathy, asthma) Past Surgical History: appendectomy, hysterectomy, Other (status post AICD,) Social history: lives with family, smoking (current every day smoker) Family history: no significant family history Medications and Allergies Allergies Allergy/AdvReac Type Severity Reaction Status Date / Time latex Allergy Hives Verified 05/16/15 01:08 naproxen sodium [From Aleve] Allergy Hives Verified 05/16/15 01:08 Home Medications Medication Instructions Recorded Confirmed Last Taken Type Aspirin 325 mg PO DAILY #30 tablet 02/08/18 01/29/19 Unknown Rx Carvedilol [Coreg] 25 mg PO BID #60 tablet 02/08/18 01/29/19 Unknown Rx Digoxin [Lanoxin] 0.125 mg PO DAILY #30 tablet 02/08/18 01/29/19 Unknown Rx Rosuvastatin (Nf) [Crestor] 40 mg PO DAILY 30 Days tablet 02/08/18 01/29/19 Unknown Rx Spironolactone [Aldactone] 25 mg PO QDAY #30 tablet 02/08/18 01/29/19 Unknown Rx Torsemide [Demadex] 20 mg PO DAILY #30 tablet 02/08/18 01/29/19 Unknown Rx Insulin Regular,Human U-500(Nf See Protocol SC TID 05/19/18 01/29/19 Unknown History [HumuLIN R] Prednisone [predniSONE 10 mg 10 mg PO .TAPER #1 tab.ds.pk 05/20/18 01/29/19 Unknown Rx (6-Day Pack, 21 Tabs)] ALBUTEROL Inhaler (OR & NICU) 2 puff IH QID PRN #1 inhalation 12/04/18 01/29/19 Unknown Rx [ProAir HFA Inhaler] Albuterol Sulfate [Albuterol 0.63% 0.63 mg IH TID PRN #10 vial 12/06/18 01/29/19 Unknown Rx NEBS] ALBUTEROL NEB's [Proventil 0.083% 2.5 mg IH TID PRN #1 box 01/27/19 01/29/19 Unknown Rx NEBS] Enalapril Maleate [Vasotec] 5 mg PO DAILY 01/29/19 01/29/19 Unknown History Ipratropium [Atrovent NEB] 0.5 mg IH Q4HR PRN 01/29/19 01/29/19 Unknown History Active Meds: Active Medications Albuterol (Proventil) 2.5 mg IH Q4HRT PRN PRN Reason: Shortness Of Breath Albuterol/Ipratropium (Duoneb *Not For Prn Use*) 1 ampul IH Q6HRT [facility] Aspirin (Aspirin) 325 mg PO DAILY [facility] Atorvastatin Calcium (Lipitor) 40 mg PO QHS [facility] Budesonide (Pulmicort) 0.5 mg IH Q12HRT [facility] Carvedilol (Coreg) 25 mg PO BID [facility] Dextrose (D50w (25gm) Syringe) 50 ml IV PRN PRN PRN Reason: Hypoglycemia Digoxin (Lanoxin) 0.125 mg PO DAILY@1700 [facility] Enoxaparin Sodium (Lovenox) 40 mg SUB-Q QDAY [facility] Guaifenesin (Mucinex Er) 600 mg PO BID [facility] Levofloxacin/Dextrose (Levaquin 500mg/100ml) 500 mg in 100 mls @ 100 mls/hr IV Q48HR [facility]; Protocol Sodium Chloride (Nacl 0.9% 1000 Ml) 1,000 mls @ 42 mls/hr IV ONCE ONE Stop: 01/30/19 02:32 Insulin Human Lispro (Humalog) 0 unit SUB-Q ACHS [facility]; Protocol Lisinopril (Zestril) 5 mg PO QDAY [facility] Nicotine (Habitrol) 14 mg TD QDAY [facility] Spironolactone (Aldactone) 25 mg PO QDAY [facility] Torsemide (Demadex) 20 mg PO DAILY [facility] Review of Systems All systems: negative Respiratory: cough with sputum (clear sputum), shortness of breath, dyspnea on exertion, wheezing, sleep apnea (noncompliant with CPAP) Exam - Physical Exam Narrative exam: Physical exam General appearance: Present: Mild discomfort, alert and oriented 3, well- developed, pleasant, obese, adult female - EENT Eyes: Present: PERRL, EOM ENT: hearing intact, normal dentition - Neck Neck: Present: supple, normal ROM - Respiratory Respiratory effort: Non-labored Respiratory: Wheezes throughout - Cardiovascular Heart rate: 79 (bpm) Rhythm: SR Heart Sounds: Present: S1 & S2. Absent: rub, click - Extremities Extremities: no ischemia, pulses intact, - Peripheral Assessment Peripheral Pulses: within normal limits - Abdominal General gastrointestinal: Obese, soft, non-tender, normal bowel sounds - Integumentary Integumentary: Present: warm, dry - Musculoskeletal Musculoskeletal: Normal gait -Neurological Neurological: CN II-XII grossly intact - Psychiatric Psychiatric: cooperative - Constitutional Vitals: Temp Pulse Resp BP Pulse Ox 97.8 F 79 18 104/59 96 01/29/19 00:01 01/29/19 00:01 01/29/19 00:01 01/29/19 00:01 01/29/19 00:01 Results - Labs CBC & Chem 7: 01/28/19 21:36 01/28/19 21:36 Labs: Laboratory Last Values WBC 15.3 K/mm3 (4.5-11.0) H 01/28/19 21:36 RBC 4.95 M/mm3 (3.65-5.03) 01/28/19 21:36 Hgb 15.0 gm/dl (10.1-14.3) H 01/28/19 21:36 Hct 44.7 % (30.3-42.9) H 01/28/19 21:36 MCV 90 fl (79-97) 01/28/19 21:36 MCH 30 pg (28-32) 01/28/19 21:36 MCHC 34 % (30-34) 01/28/19 21:36 RDW 14.4 % (13.2-15.2) 01/28/19 21:36 Plt Count 208 K/mm3 (140-440) 01/28/19 21:36 Lymph % (Auto) 11.2 % (13.4-35.0) L 01/28/19 21:36 [place] % (Auto) 5.7 % (0.0-7.3) 01/28/19 21:36 Eos % (Auto) 0.0 % (0.0-4.3) 01/28/19 21:36 Baso % (Auto) 0.1 % (0.0-1.8) 01/28/19 21:36 Lymph # 1.7 K/mm3 (1.2-5.4) 01/28/19 21:36 [place] # 0.9 K/mm3 (0.0-0.8) H 01/28/19 21:36 Eos # 0.0 K/mm3 (0.0-0.4) 01/28/19 21:36 Baso # 0.0 K/mm3 (0.0-0.1) 01/28/19 21:36 Seg Neutrophils % 83.0 % (40.0-70.0) H 01/28/19 21:36 Seg Neutrophils # 12.6 K/mm3 (1.8-7.7) H 01/28/19 21:36 PT 14.1 Sec. (12.2-14.9) 01/28/19 21:36 INR 1.12 (0.87-1.13) 01/28/19 21:36 APTT 23.7 Sec. (24.2-36.6) L 01/28/19 21:36 Sodium 139 mmol/L (137-145) 01/28/19 21:36 Potassium 4.4 mmol/L (3.6-5.0) 01/28/19 21:36 Chloride 97.6 mmol/L (98-107) L 01/28/19 21:36 Carbon Dioxide 26 mmol/L (22-30) 01/28/19 21:36 20 mmol/L 01/28/19 21:36 BUN 48 mg/dL (7-17) H 01/28/19 21:36 1.5 mg/dL (0.7-1.2) H 01/28/19 21:36 Estimated GFR 38 ml/min 01/28/19 21:36 32 % 01/28/19 21:36 Glucose 132 mg/dL (65-100) H 01/28/19 21:36 Calcium 9.8 mg/dL (8.4-10.2) 01/28/19 21:36 < 0.010 ng/mL (0.00-0.029) 01/29/19 00:25 - Imaging and Cardiology Imaging and Cardiology: CXR: FINDINGS: SUPPORT DEVICES: Pacer appears unchanged. HEART / MEDIASTINUM: Heart is mildly enlarged. LUNGS / PLEURA: Pulmonary vascularity appears within normal limits. Mild atelectasis is seen in the right base. No definite areas of consolidation are seen. No pneumothorax. ADDITIONAL FINDINGS: No significant additional findings. IMPRESSION: No significant acute abnormality Assessment and Plan Assessment and plan: 43-year-old female who is an ongoing smoker with history of asthma, hypertension, diabetes, severe obesity, CVA, cardiomyopathy S/P AICD presents to [facility] ED with complaints of shortness of breath and difficulty in breathing that was unrelieved by oral steroids, nebulizer treatment and oral antibiotics for the past day. Exacerbation of asthma -Continue supportive care -Schedule DuoNebs and Pulmicort, albuterol when necessary -IV systemic steroids -On IV abx -Mucinex -Pulmonary consult JERI -Cr 1.5 on admission -Gentle hydration with IVF -Avoid nephrotoxic agents -Renal dose all meds -Nephrology consulted Leukocytosis -WBC 15.3 -Afebrile -On IV abx -Continue to monitor CBC DM -POC BG monitoring -SSI coverage prn -HgbA1C pending Tobacco Abuse -Current every day smokes -Counseled for cessation -Nicotine patch PRN Obesity -BMI 50.2 -May benefit from lifestyle and diet modifications -Pt states that she is planning on having bariatric surgery in February Obstructive sleep apnea -Noncompliant with nocturnal use of CPAP at home -Will order CPAP daily at bedtime during inpatient stay Hypertension -Continue to monitor BP -Resume home antihypertensive meds to optimize BP Hx cardiomyopathy -s/p AICD DVT PPX -on Lovenox Advance Directives: No VTE prophylaxis?: Chemical Plan of care discussed with patient/family: Yes <AGUSTÍN MCKEON - Last Filed: 01/29/19 05:52> History of Present Illness Date of admission: 01/29/19 03:14 Medications and Allergies Active Meds: Active Medications Albuterol (Proventil) 2.5 mg IH Q4HRT PRN PRN Reason: Shortness Of Breath Last Admin: 01/29/19 04:44 Dose: 2.5 mg Documented by: Albuterol/Ipratropium (Duoneb *Not For Prn Use*) 1 ampul IH Q6HRT [facility] Aspirin (Aspirin) 325 mg PO DAILY [facility] Atorvastatin Calcium (Lipitor) 40 mg PO QHS [facility] Budesonide (Pulmicort) 0.5 mg IH Q12HRT [facility] Carvedilol (Coreg) 25 mg PO BID [facility] Dextrose (D50w (25gm) Syringe) 50 ml IV PRN PRN PRN Reason: Hypoglycemia Digoxin (Lanoxin) 0.125 mg PO DAILY@1700 [facility] Enoxaparin Sodium (Lovenox) 40 mg SUB-Q QDAY [facility] Guaifenesin (Mucinex Er) 600 mg PO BID [facility] Last Admin: 01/29/19 04:43 Dose: 600 mg Documented by: Levofloxacin/Dextrose (Levaquin 500mg/100ml) 500 mg in 100 mls @ 100 mls/hr IV Q48HR [facility]; Protocol Sodium Chloride (Nacl 0.9% 1000 Ml) 1,000 mls @ 42 mls/hr IV ONCE ONE Stop: 01/30/19 02:32 Last Admin: 01/29/19 03:57 Dose: 42 mls/hr Documented by: Insulin Human Lispro (Humalog) 0 unit SUB-Q ACHS [facility]; Protocol Lisinopril (Zestril) 5 mg PO QDAY [facility] Nicotine (Habitrol) 14 mg TD QDAY [facility] Spironolactone (Aldactone) 25 mg PO QDAY [facility] Torsemide (Demadex) 20 mg PO DAILY [facility] Exam - Constitutional Vitals: Temp Pulse Resp BP Pulse Ox 98.7 F 66 28 H 110/77 93 01/29/19 04:41 01/29/19 04:58 01/29/19 04:45 01/29/19 04:41 01/29/19 04:41 Results - Labs CBC & Chem 7: 01/28/19 21:36 01/28/19 21:36 Labs: Laboratory Last Values WBC 15.3 K/mm3 (4.5-11.0) H 01/28/19 21:36 RBC 4.95 M/mm3 (3.65-5.03) 01/28/19 21:36 Hgb 15.0 gm/dl (10.1-14.3) H 01/28/19 21:36 Hct 44.7 % (30.3-42.9) H 01/28/19 21:36 MCV 90 fl (79-97) 01/28/19 21:36 MCH 30 pg (28-32) 01/28/19 21:36 MCHC 34 % (30-34) 01/28/19 21:36 RDW 14.4 % (13.2-15.2) 01/28/19 21:36 Plt Count 208 K/mm3 (140-440) 01/28/19 21:36 Lymph % (Auto) 11.2 % (13.4-35.0) L 01/28/19 21:36 [place] % (Auto) 5.7 % (0.0-7.3) 01/28/19 21:36 Eos % (Auto) 0.0 % (0.0-4.3) 01/28/19 21:36 Baso % (Auto) 0.1 % (0.0-1.8) 01/28/19 21:36 Lymph # 1.7 K/mm3 (1.2-5.4) 01/28/19 21:36 [place] # 0.9 K/mm3 (0.0-0.8) H 01/28/19 21:36 Eos # 0.0 K/mm3 (0.0-0.4) 01/28/19 21:36 Baso # 0.0 K/mm3 (0.0-0.1) 01/28/19 21:36 Seg Neutrophils % 83.0 % (40.0-70.0) H 01/28/19 21:36 Seg Neutrophils # 12.6 K/mm3 (1.8-7.7) H 01/28/19 21:36 PT 14.1 Sec. (12.2-14.9) 01/28/19 21:36 INR 1.12 (0.87-1.13) 01/28/19 21:36 APTT 23.7 Sec. (24.2-36.6) L 01/28/19 21:36 Sodium 139 mmol/L (137-145) 01/28/19 21:36 Potassium 4.4 mmol/L (3.6-5.0) 01/28/19 21:36 Chloride 97.6 mmol/L (98-107) L 01/28/19 21:36 Carbon Dioxide 26 mmol/L (22-30) 01/28/19 21:36 20 mmol/L 01/28/19 21:36 BUN 48 mg/dL (7-17) H 01/28/19 21:36 1.5 mg/dL (0.7-1.2) H 01/28/19 21:36 Estimated GFR 38 ml/min 01/28/19 21:36 32 % 01/28/19 21:36 Glucose 132 mg/dL (65-100) H 01/28/19 21:36 Calcium 9.8 mg/dL (8.4-10.2) 01/28/19 21:36 < 0.010 ng/mL (0.00-0.029) 01/29/19 00:25 Assessment and Plan Assessment and plan: 43-year-old woman with a history of CVA, asthma, CHF, diabetes comes emergency room with complaints of shortness of breath that started since yesterday, cough productive of yellow phlegm. We'll do IV fluids for now, hold one of her diu retic and monitor kidney function. She was discharged from the emergency room yesterday given outpatient steroids, antibiotics, she took these medicines but her symptoms did not improve. Start high-dose steroids, antibiotics and nebulizer treatments
[2019-01-29] MEDS: MUCINEX ER PO SCH ×3 (04:43→21:37)
[2019-01-29] MEDS: SOLU-Medrol IV SCH ×3 (06:14→21:36)
--- NOTE | 2019-01-29 07:47 | Consultation ---
History of Present Illness - Reason for Consult Consult date: 01/29/19 acute renal failure - History of Present Illness patient was admitted for worsening shrotness of breath and wheezing was beckie gnosed with asthma exacerbation and was started on systemic steroids, bronchodilators and antibiotics, was found to have increased Cr and renal consult was requested Past History Past Medical History: diabetes, heart failure, hypertension, stroke, sarcoidosis (MEJIA non compliant with CPAP, severe obesity, cardiomyopathy, asthma) Past Surgical History: appendectomy, hysterectomy, Other (status post AICD,) Social history: lives with family, smoking (current every day smoker) Family history: no significant family history Medications and Allergies Allergies Allergy/AdvReac Type Severity Reaction Status Date / Time latex Allergy Hives Verified 05/16/15 01:08 naproxen sodium [From Aleve] Allergy Hives Verified 05/16/15 01:08 Home Medications Medication Instructions Recorded Confirmed Last Taken Type Aspirin 325 mg PO DAILY #30 tablet 02/08/18 01/29/19 Unknown Rx Carvedilol [Coreg] 25 mg PO BID #60 tablet 02/08/18 01/29/19 Unknown Rx Digoxin [Lanoxin] 0.125 mg PO DAILY #30 tablet 02/08/18 01/29/19 Unknown Rx Rosuvastatin (Nf) [Crestor] 40 mg PO DAILY 30 Days tablet 02/08/18 01/29/19 Unknown Rx Spironolactone [Aldactone] 25 mg PO QDAY #30 tablet 02/08/18 01/29/19 Unknown Rx Torsemide [Demadex] 20 mg PO DAILY #30 tablet 02/08/18 01/29/19 Unknown Rx Insulin Regular,Human U-500(Nf See Protocol [place] TID 05/19/18 01/29/19 Unknown History [HumuLIN R] Prednisone [predniSONE 10 mg 10 mg PO .TAPER #1 tab.ds.pk 05/20/18 01/29/19 Unknown Rx (6-Day Pack, 21 Tabs)] ALBUTEROL Inhaler (OR & NICU) 2 puff IH QID PRN #1 inhalation 12/04/18 01/29/19 Unknown Rx [ProAir HFA Inhaler] Albuterol Sulfate [Albuterol 0.63% 0.63 mg IH TID PRN #10 vial 12/06/18 01/29/19 Unknown Rx NEBS] ALBUTEROL NEB's [Proventil 0.083% 2.5 mg IH TID PRN #1 box 01/27/19 01/29/19 Unknown Rx NEBS] Enalapril Maleate [Vasotec] 5 mg PO DAILY 01/29/19 01/29/19 Unknown History Ipratropium [Atrovent NEB] 0.5 mg IH Q4HR PRN 01/29/19 01/29/19 Unknown History Active Meds: Active Medications Albuterol (Proventil) 2.5 mg IH Q4HRT PRN PRN Reason: Shortness Of Breath Last Admin: 01/29/19 04:44 Dose: 2.5 mg Documented by: Albuterol/Ipratropium (Duoneb *Not For Prn Use*) 1 ampul IH Q6HRT [facility] Aspirin (Aspirin) 325 mg PO DAILY [facility] Atorvastatin Calcium (Lipitor) 40 mg PO QHS [facility] Budesonide (Pulmicort) 0.5 mg IH Q12HRT [facility] Carvedilol (Coreg) 25 mg PO BID [facility] Dextrose (D50w (25gm) Syringe) 50 ml IV PRN PRN PRN Reason: Hypoglycemia Digoxin (Lanoxin) 0.125 mg PO DAILY@1700 [facility] Enoxaparin Sodium (Lovenox) 40 mg SUB-Q QDAY [facility] Guaifenesin (Mucinex Er) 600 mg PO BID [facility] Last Admin: 01/29/19 04:43 Dose: 600 mg Documented by: Levofloxacin/Dextrose (Levaquin 500mg/100ml) 500 mg in 100 mls @ 100 mls/hr IV Q48HR [facility]; Protocol Sodium Chloride (Nacl 0.9% 1000 Ml) 1,000 mls @ 42 mls/hr IV ONCE ONE Stop: 01/30/19 02:32 Last Admin: 01/29/19 03:57 Dose: 42 mls/hr Documented by: Insulin Human Lispro (Humalog) 0 unit SUB-Q ACHS [facility]; Protocol Methylprednisolone Sodium Succinate (Solu-Medrol) 125 mg IV Q8HR [facility] Last Admin: 01/29/19 06:14 Dose: 125 mg Documented by: Nicotine (Habitrol) 14 mg TD QDAY [facility] Review of Systems All systems: negative (SOB) Exam - Vital Signs Vital signs: Vital Signs Temp Pulse Resp BP Pulse Ox 98.3 F 75 22 114/60 93 01/28/19 21:26 01/28/19 21:26 01/28/19 21:26 01/28/19 21:26 01/28/19 21:26 - General Appearance General appearance: well-developed, well-nourished, obese EENT: ATNC, PERRL, mucous membranes moist Neck: Present: neck supple Respiratory: Decreased Breath Sounds Heart: regular, S1S2 Gastrointestinal: Present: normoactive bowel sounds, obese. Absent: absent bowel sounds, tenderness Integumentary: no rash, warm and dry Neurologic: no focal deficit, no asterixis, alert and oriented x3 Musculoskeletal: Present: other (no edema in BLE) Psychiatric: mood/affect appropriate, cooperative Results - Lab Results 01/28/19 21:36 01/28/19 21:36 Most recent lab results Calcium 9.8 mg/dL (8.4-10.2) 01/28/19 21:36 Assessment and Plan Asthma exacerbation acute kidney injury, likely prerenal HTN HLD - will hold lisinopril and Torsemide for now - agree with gentle IVF, CXR -ve for pulm congestion - urine studies ordered - reanlly dose meds - strict I&O - daily weight Erick Brower MD [phone]
[2019-01-29] MEDS: DUONEB *Not for PRN Use IH SCH ×3 (07:56→22:23)
[2019-01-29] MEDS: PULMICORT IH SCH ×2 (07:56→22:23)
[2019-01-29] MEDS: HumaLOG SUB-Q SCH ×4 (09:24→21:51)
[2019-01-29] MEDS: HABITROL TD SCH ×2 (09:26→09:31)
[2019-01-29] MEDS: ASPIRIN PO SCH (09:26)
[2019-01-29] MEDS: LOVENOX SUB-Q SCH (09:27)
[2019-01-29] MEDS: COREG PO SCH ×2 (09:27→21:36)
[2019-01-29] MEDS ORDERED: TYLENOL PO PRN (09:40)
[2019-01-29] MEDS ORDERED: ALDACTONE PO SCH (10:00)
[2019-01-29] MEDS ORDERED: LEVAQUIN 500MG/100ML 500 MG/100 ML BAG IV SCH (10:00)
[2019-01-29] MEDS ORDERED: DEMADEX PO SCH (10:00)
[2019-01-29] MEDS ORDERED: ZESTRIL PO SCH (10:00)
--- NOTE | 2019-01-29 14:32 | Event Note ---
Date: 01/29/19 Patient was admitted earlier this morning for the management of asthma/COPD exacerbation. Please refer for details to the H&P that was done this morning.
[2019-01-29] MEDS: LANOXIN PO SCH (18:25)
[2019-01-30] MEDS: DUONEB *Not for PRN Use IH SCH ×6 (01:05→22:09)
[2019-01-30] MEDS: SOLU-Medrol IV SCH ×3 (05:28→21:57)
[2019-01-30 06:20] LABS: Basophils % (Auto) 0.1 % (0.0-1.8); Hematocrit 43.8 % (30.3-42.9); Hemoglobin 14.6 gm/dl (10.1-14.3); Lymphocytes % (Auto) 17.7 % (13.4-35.0); Mean Corpuscular HGB Conc 33 % (30-34); Mean Corpuscular Volume 91 fl (79-97); Monocytes # (Auto) 0.5 K/mm3 (0.0-0.8); Monocytes % (Auto) 4.3 % (0.0-7.3); Platelet Count 208 K/mm3 (140-440); Red Blood Count 4.84 M/mm3 (3.65-5.03); Red Cell Distribution Width 14.3 % (13.2-15.2)
[2019-01-30 06:37] LABS: Calcium 9.1 mg/dL (8.4-10.2)
[2019-01-30] MEDS: HumaLOG SUB-Q SCH ×4 (07:32→22:00)
[2019-01-30] MEDS: PERCOCET 5/325 PO PRN ×2 (10:32→22:05)
[2019-01-30] MEDS: COREG PO SCH ×2 (10:33→21:58)
[2019-01-30] MEDS: ASPIRIN PO SCH (10:33)
[2019-01-30] MEDS: LEVAQUIN 500MG/100ML 500 MG/100 ML BAG IV SCH (10:33)
[2019-01-30] MEDS: HABITROL TD SCH (10:33)
[2019-01-30] MEDS: MUCINEX ER PO SCH ×2 (10:33→22:08)
[2019-01-30] MEDS: LOVENOX SUB-Q SCH (10:33)
[2019-01-30] MEDS: PULMICORT IH SCH ×2 (11:09→22:09)
--- NOTE | 2019-01-30 12:05 | Progress Note ---
Assessment and Plan Asthma exacerbation acute kidney injury, likely prerenal HTN HLD - JERI resolved - off IVF - reanlly dose meds - strict I&O - daily weight Erick Brower MD [phone] Subjective Date of service: 01/30/19 Principal diagnosis: JERI Interval history: some SOB but improving Objective - Vital Signs Vital signs: Vital Signs - 12hr 01/30/19 01/30/19 01/30/19 00:18 03:43 04:31 Temperature 98.0 F 98.0 F Pulse Rate 67 64 Pulse Rate [ 64 Anterior Bilateral Throughout] Respiratory 20 20 Rate Respiratory 20 Rate [Anterior Bilateral Throughout] Blood Pressure 92/37 92/39 O2 Sat by Pulse 95 97 Oximetry 01/30/19 01/30/19 04:53 07:39 Temperature 98.2 F Pulse Rate 67 Pulse Rate [ Anterior Bilateral Throughout] Respiratory 18 Rate Respiratory Rate [Anterior Bilateral Throughout] Blood Pressure 106/49 O2 Sat by Pulse Oximetry - General Appearance General appearance: well-developed, well-nourished, obese EENT: ATNC, PERRL, mucous membranes moist Neck: no JVD, no carotid bruit Respiratory: Present: Clear to Ascultation. Absent: Rales, Ronchi Cardiology: regular, S1S2 Gastrointestinal: normoactive bowel sounds, no tenderness, no distended Integumentary: no rash, warm and dry Neurologic: no focal deficit, no asterixis, alert and oriented x3 Musculoskeletal: other (no edema in BLE) Psychiatric: mood/affect appropriate, cooperative - Lab 01/30/19 05:45 01/30/19 05:45 Most recent lab results Calcium 9.1 mg/dL (8.4-10.2) 01/30/19 05:45 Phosphorus 4.10 mg/dL (2.5-4.5) 01/30/19 05:45 Medications & Allergies - Medications Allergies/Adverse Reactions: Allergies latex Allergy (Verified 05/16/15 01:08) Hives naproxen sodium [From Aleve] Allergy (Verified 05/16/15 01:08) Hives Home Medications: Home Medications Medication Instructions Recorded Confirmed Last Taken Type Aspirin 325 mg PO DAILY #30 tablet 02/08/18 01/29/19 Unknown Rx Carvedilol [Coreg] 25 mg PO BID #60 tablet 02/08/18 01/29/19 Unknown Rx Digoxin [Lanoxin] 0.125 mg PO DAILY #30 tablet 02/08/18 01/29/19 Unknown Rx Rosuvastatin (Nf) [Crestor] 40 mg PO DAILY 30 Days tablet 02/08/18 01/29/19 Unknown Rx Spironolactone [Aldactone] 25 mg PO QDAY #30 tablet 02/08/18 01/29/19 Unknown Rx Torsemide [Demadex] 20 mg PO DAILY #30 tablet 02/08/18 01/29/19 Unknown Rx Insulin Regular,Human U-500(Nf See Protocol [place] TID 05/19/18 01/29/19 Unknown H istory [HumuLIN R] Prednisone [predniSONE 10 mg 10 mg PO .TAPER #1 tab.ds.pk 05/20/18 01/29/19 Unknown Rx (6-Day Pack, 21 Tabs)] ALBUTEROL Inhaler (OR & NICU) 2 puff IH QID PRN #1 inhalation 12/04/18 01/29/19 Unknown Rx [ProAir HFA Inhaler] Albuterol Sulfate [Albuterol 0.63% 0.63 mg IH TID PRN #10 vial 12/06/18 01/29/19 Unknown Rx NEBS] ALBUTEROL NEB's [Proventil 0.083% 2.5 mg IH TID PRN #1 box 01/27/19 01/29/19 Unknown Rx NEBS] Enalapril Maleate [Vasotec] 5 mg PO DAILY 01/29/19 01/29/19 Unknown History Ipratropium [Atrovent NEB] 0.5 mg IH Q4HR PRN 01/29/19 01/29/19 Unknown History Active Medications: Generic Name Dose Route Start Last Admin Trade Name Freq PRN Reason Stop Dose Admin Acetaminophen 650 mg 01/29/19 09:40 01/29/19 10:14 Tylenol PO 650 mg Q4H PRN Administration Headache Albuterol 2.5 mg 01/29/19 02:43 01/29/19 04:44 Proventil IH 2.5 mg Q4HRT PRN Administration Shortness Of Breath Albuterol/Ipratropium 1 ampul 01/30/19 00:00 01/30/19 11:11 Duoneb *Not For Prn Use* IH 1 ampul Q4HRT [facility] Administration Aspirin 325 mg 01/29/19 10:00 01/30/19 10:33 Aspirin PO 325 mg DAILY [facility] Administration Atorvastatin Calcium 40 mg 01/29/19 22:00 01/29/19 21:37 Lipitor PO 40 mg QHS [facility] Administration Budesonide 0.5 mg 01/29/19 08:00 01/30/19 11:09 Pulmicort IH 0.5 mg Q12HRT [facility] Administration Carvedilol 25 mg 01/29/19 10:00 01/30/19 10:33 Coreg PO 25 mg BID [facility] Administration Dextrose 50 ml 01/29/19 02:52 D50w (25gm) Syringe IV PRN PRN Hypoglycemia Digoxin 0.125 mg 01/29/19 17:00 01/29/19 18:25 Lanoxin PO 0.125 mg DAILY@1700 [facility] Administration Enoxaparin Sodium 40 mg 01/29/19 10:00 01/30/19 10:33 Lovenox SUB-Q 40 mg QDAY [facility] Administration Guaifenesin 600 mg 01/29/19 03:00 01/30/19 10:33 Mucinex Er PO 600 mg BID [facility] Administration Levofloxacin/Dextrose 500 mg in 100 mls @ 100 mls/hr 01/30/19 10:00 01/30/19 10:33 Levaquin 500mg/100ml IV 100 mls/hr Q24HR [facility] Administration Protocol Insulin Human Lispro 0 unit 01/29/19 07:30 01/29/19 21:51 Humalog SUB-Q 6 unit ACHS [facility] Administration Protocol Methylprednisolone Sodium Succinate 125 mg 01/29/19 06:00 01/30/19 05:28 Solu-Medrol IV 125 mg Q8HR [facility] Administration Nicotine 14 mg 01/29/19 10:00 01/30/19 10:33 Habitrol TD Not Given QDAY [facility] Oxycodone/Acetaminophen 1 tab 01/30/19 09:53 01/30/19 10:32 Percocet 5/325 PO 1 tab Q6H PRN Administration Pain, Moderate (4-6)
--- NOTE | 2019-01-30 15:54 | Progress Note ---
Assessment and Plan Assessment and plan: 43-year-old female who is an ongoing smoker with history of asthma, hypertension, diabetes, severe obesity, CVA, cardiomyopathy S/P AICD presents to [facility] ED with complaints of shortness of breath and difficulty in breathing that was unrelieved by oral steroids, nebulizer treatment and oral antibiotics for the past day. Exacerbation of asthma -Continue supportive care -Schedule DuoNebs and Pulmicort, albuterol when necessary -IV systemic steroids -On IV abx -Mucinex -Pulmonary consult JERI -Cr 1.5 on admission -Gentle hydration with IVF -Avoid nephrotoxic agents -Renal dose all meds -Nephrology consulted Leukocytosis -WBC 15.3 -Afebrile -On IV abx -Continue to monitor CBC DM -POC BG monitoring -SSI coverage prn -HgbA1C pending Tobacco Abuse -Current every day smokes -Counseled for cessation -Nicotine patch PRN Obesity -BMI 50.2 -May benefit from lifestyle and diet modifications -Pt states that she is planning on having bariatric surgery in February Obstructive sleep apnea -Noncompliant with nocturnal use of CPAP at home -Will order CPAP daily at bedtime during inpatient stay Hypertension -Continue to monitor BP -Resume home antihypertensive meds to optimize BP Hx cardiomyopathy -s/p AICD DVT PPX -on Lovenox History Interval history: Patient was seen and evaluated this morning, patient still has SOB, and a lot of wheezing. Hospitalist Physical - Physical exam Narrative exam: Not in cardiopulmonary distress. The patient is morbidly obese. Vital signs as documented. Head exam is unremarkable. No scleral icterus . Neck is without jugular venous distension, thyromegaly, or carotid bruits. Lungs wheezing all over the chest and decrease air entry on the bibasilar area. Cardiac exam reveals regular rate and Rhythm. Abdominal exam reveals normal bowel sounds, no masses, no organomegaly and no aortic enlargement. Extremities are nonedematous and both femoral and pedal pulses are normal. 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 No focal weakness. - Constitutional Vitals: Temp Pulse Resp BP Pulse Ox 98.2 F 67 18 106/49 97 01/30/19 07:39 01/30/19 04:53 01/30/19 07:39 01/30/19 07:39 01/30/19 04:31 Results - Labs CBC & Chem 7: 01/30/19 05:45 01/30/19 05:45 Labs: Laboratory Last Values WBC 11.4 K/mm3 (4.5-11.0) H 01/30/19 05:45 RBC 4.84 M/mm3 (3.65-5.03) 01/30/19 05:45 Hgb 14.6 gm/dl (10.1-14.3) H 01/30/19 05:45 Hct 43.8 % (30.3-42.9) H 01/30/19 05:45 MCV 91 fl (79-97) 01/30/19 05:45 MCH 30 pg (28-32) 01/30/19 05:45 MCHC 33 % (30-34) 01/30/19 05:45 RDW 14.3 % (13.2-15.2) 01/30/19 05:45 Plt Count 208 K/mm3 (140-440) 01/30/19 05:45 Lymph % (Auto) 17.7 % (13.4-35.0) 01/30/19 05:45 [place] % (Auto) 4.3 % (0.0-7.3) 01/30/19 05:45 Eos % (Auto) 0.0 % (0.0-4.3) 01/30/19 05:45 Baso % (Auto) 0.1 % (0.0-1.8) 01/30/19 05:45 Lymph # 2.0 K/mm3 (1.2-5.4) 01/30/19 05:45 Woods # 0.5 K/mm3 (0.0-0.8) 01/30/19 05:45 Eos # 0.0 K/mm3 (0.0-0.4) 01/30/19 05:45 Baso # 0.0 K/mm3 (0.0-0.1) 01/30/19 05:45 Seg Neutrophils % 77.9 % (40.0-70.0) H 01/30/19 05:45 Seg Neutrophils # 8.8 K/mm3 (1.8-7.7) H 01/30/19 05:45 PT 14.1 Sec. (12.2-14.9) 01/28/19 21:36 INR 1.12 (0.87-1.13) 01/28/19 21:36 APTT 23.7 Sec. (24.2-36.6) L 01/28/19 21:36 Sodium 136 mmol/L (137-145) L 01/30/19 05:45 Potassium 4.9 mmol/L (3.6-5.0) 01/30/19 05:45 Chloride 96.5 mmol/L (98-107) L 01/30/19 05:45 Carbon Dioxide 23 mmol/L (22-30) 01/30/19 05:45 21 mmol/L 01/30/19 05:45 BUN 37 mg/dL (7-17) H 01/30/19 05:45 1.1 mg/dL (0.7-1.2) 01/30/19 05:45 Estimated GFR 55 ml/min 01/30/19 05:45 34 % 01/30/19 05:45 Glucose 359 mg/dL (65-100) H 01/30/19 05:45 POC Glucose 333 (70-105) H 01/30/19 11:34 8.1 % (4-6) H 01/29/19 05:16 Calcium 9.1 mg/dL (8.4-10.2) 01/30/19 05:45 Phosphorus 4.10 mg/dL (2.5-4.5) 01/30/19 05:45 < 0.010 ng/mL (0.00-0.029) 01/29/19 00:25 Active Medications - Current Medications Current Medications: Generic Name Dose Route Start Last Admin Trade Name Freq PRN Reason Stop Dose Admin Acetaminophen 650 mg 01/29/19 09:40 01/29/19 10:14 Tylenol PO 650 mg Q4H PRN Administration Headache Albuterol 2.5 mg 01/29/19 02:43 01/29/19 04:44 Proventil IH 2.5 mg Q4HRT PRN Administration Shortness Of Breath Albuterol/Ipratropium 1 ampul 01/30/19 00:00 01/30/19 11:11 Duoneb *Not For Prn Use* IH 1 ampul Q4HRT ALEXY Administration Aspirin 325 mg 01/29/19 10:00 01/30/19 10:33 Aspirin PO 325 mg DAILY ALEXY Administration Atorvastatin Calcium 40 mg 01/29/19 22:00 01/29/19 21:37 Lipitor PO 40 mg QHS ALEXY Administration Budesonide 0.5 mg 01/29/19 08:00 01/30/19 11:09 Pulmicort IH 0.5 mg Q12HRT ALEXY Administration Carvedilol 25 mg 01/29/19 10:00 01/30/19 10:33 Coreg PO 25 mg BID ALEXY Administration Dextrose 50 ml 01/29/19 02:52 D50w (25gm) Syringe IV PRN PRN Hypoglycemia Digoxin 0.125 mg 01/29/19 17:00 01/29/19 18:25 Lanoxin PO 0.125 mg DAILY@1700 ALEXY Administration Enoxaparin Sodium 40 mg 01/29/19 10:00 01/30/19 10:33 Lovenox SUB-Q 40 mg QDAY ALEXY Administration Guaifenesin 600 mg 01/29/19 03:00 01/30/19 10:33 Mucinex Er PO 600 mg BID ALEXY Administration Levofloxacin/Dextrose 500 mg in 100 mls @ 100 mls/hr 01/30/19 10:00 01/30/19 10:33 Levaquin 500mg/100ml IV 100 mls/hr Q24HR ALEXY Administration Protocol Insulin Human Lispro 0 unit 01/29/19 07:30 01/30/19 11:33 Humalog SUB-Q 6 unit ACHS ALEXY Administration Protocol Methylprednisolone Sodium Succinate 125 mg 01/29/19 06:00 01/30/19 13:31 Solu-Medrol IV 125 mg Q8HR ALEXY Administration Nicotine 14 mg 01/29/19 10:00 01/30/19 10:33 Habitrol TD Not Given QDAY ALEXY Oxycodone/Acetaminophen 1 tab 01/30/19 09:53 01/30/19 10:32 Percocet 5/325 PO 1 tab Q6H PRN Administration Pain, Moderate (4-6) Nutrition/Malnutrition Assess - Dietary Evaluation Nutrition/Malnutrition Findings: Nutrition Notes Start: 01/29/19 11:20 Freq: Status: Active Protocol: Document 01/29/19 11:20 RS (Rec: 01/29/19 12:56 RS [id number]) Co-Sign 01/29/19 11:20 RM Nutrition Notes Need for Assessment generated from: MD Order Initial or Follow up Brief Note Current Diagnosis Acute Kidney Injury,Diabetes, Hypertension,Heart Failure, Stroke Other Pertinent Diagnosis Asthma Current Diet Cardiac/Consistent CHO Labs/Tests A1c: 8.1 Glu: 132 Pertinent Medications Solu-Medrol Height 5 ft Weight 116.3 kg [place] Body Weight (kg) 45.45 BMI 50.1 Intake Prior to Admission Good Weight Status Morbidly Obese Subjective/Other Information MD consult for diet education. Diet verbalizes knowledge about DM and understands relationship between health and dz state. Pt reports previous A1c was 11% and has been coming down. Pt self report appetite is good, eats 50% of all her meals. Pt states she is on a 1200 kcal/ day restriction due to upcoming bariatric surgery. Noted food perferences. Burn Absent Trauma Absent GI Symptoms None Food Allergy Yes Current % PO Fair (50-74%) Minimum of two criteria No Nutrition Intervention Anticipated Discharge Needs: Cardiac Diet Follow-Up By: 02/02/19 Additional Comments F/U for stable PO intake
[2019-01-30] MEDS: LANOXIN PO SCH (17:32)
[2019-01-30] MEDS ORDERED: [UNRECOGNIZED DRUG - OTHER] SC SCH (18:07)
[2019-01-30] MEDS ORDERED: LANTUS SUB-Q SCH (20:00)
[2019-01-30] MEDS: LANTUS SUB-Q SCH (20:00)
[2019-01-31] MEDS: DUONEB *Not for PRN Use IH SCH ×3 (00:10→09:35)
[2019-01-31] MEDS: SOLU-Medrol IV SCH (06:00)
[2019-01-31 06:21] VITALS: BP 104/35
[2019-01-31 06:45] LABS: Basophils % (Auto) 0.1 % (0.0-1.8); Hematocrit 44.3 % (30.3-42.9); Hemoglobin 14.6 gm/dl (10.1-14.3); Lymphocytes # (Auto) 1.5 K/mm3 (1.2-5.4); Lymphocytes % (Auto) 13.5 % (13.4-35.0); Mean Corpuscular HGB Conc 33 % (30-34); Mean Corpuscular Volume 91 fl (79-97); Monocytes # (Auto) 0.8 K/mm3 (0.0-0.8); Monocytes % (Auto) 7.5 % (0.0-7.3); Platelet Count 199 K/mm3 (140-440); Red Blood Count 4.89 M/mm3 (3.65-5.03)
[2019-01-31 07:02] LABS: BUN/Creatinine Ratio 39; Blood Urea Nitrogen 39 mg/dL (7-17); Calcium 9.3 mg/dL (8.4-10.2); Hemolysis Index 11
[2019-01-31] MEDS: PULMICORT IH SCH (09:35)
--- NOTE | 2019-01-31 09:44 | Progress Note ---
Assessment and Plan Asthma exacerbation Acute kidney injury, likely prerenal HTN Hyperlipidemia Plan: - Renal function reviewed, SCr level was 1.0, yesterday's SCr level was 1.1 - JERI resolved, we will sign off - Off IV fluids - Renally dose meds - Renal plan d/w Dr Cortez Subjective Date of service: 01/31/19 Principal diagnosis: JERI Interval history: Pt seen in bed, states feels ok today, mentioned she is ready to go home, no family at bedside Objective - Vital Signs Vital signs: Vital Signs - 12hr 01/30/19 01/30/19 01/30/19 21:58 22:05 22:10 Temperature Pulse Rate 73 Pulse Rate [ 110 H Anterior Bilateral Throughout] Respiratory 22 Rate Respiratory 17 Rate [Anterior Bilateral Throughout] Blood Pressure 106/56 O2 Sat by Pulse Oximetry 01/30/19 01/31/19 01/31/19 23:05 00:09 00:20 Temperature 98.2 F Pulse Rate Pulse Rate [ Anterior Bilateral Throughout] Respiratory 18 18 Rate Respiratory Rate [Anterior Bilateral Throughout] Blood Pressure 96/58 O2 Sat by Pulse 95 Oximetry 01/31/19 01/31/19 04:14 04:16 Temperature 98.1 F Pulse Rate Pulse Rate [ 78 Anterior Bilateral Throughout] Respiratory 18 Rate Respiratory 17 Rate [Anterior Bilateral Throughout] Blood Pressure 104/35 O2 Sat by Pulse Oximetry - General Appearance General appearance: well-developed EENT: ATNC Neck: no JVD Respiratory: Present: Clear to Ascultation Cardiology: regular, S1S2 Gastrointestinal: normoactive bowel sounds Neurologic: alert and oriented x3 Musculoskeletal: other (trace edema to BLE) Psychiatric: cooperative - Lab 01/31/19 05:55 01/31/19 05:55 Most recent lab results Calcium 9.3 mg/dL (8.4-10.2) 01/31/19 05:55 Phosphorus 4.10 mg/dL (2.5-4.5) 01/30/19 05:45 Medications & Allergies - Medications Allergies/Adverse Reactions: Allergies latex Allergy (Verified 05/16/15 01:08) Hives naproxen sodium [From Aleve] Allergy (Verified 05/16/15 01:08) Hives Home Medications: Home Medications Medication Instructions Recorded Confirmed Last Taken Type Aspirin 325 mg PO DAILY #30 tablet 02/08/18 01/29/19 Unknown Rx Carvedilol [Coreg] 25 mg PO BID #60 tablet 02/08/18 01/29/19 Unknown Rx Digoxin [Lanoxin] 0.125 mg PO DAILY #30 tablet 02/08/18 01/29/19 Unknown Rx Rosuvastatin (Nf) [Crestor] 40 mg PO DAILY 30 Days tablet 02/08/18 01/29/19 Unknown Rx Spironolactone [Aldactone] 25 mg PO QDAY #30 tablet 02/08/18 01/29/19 Unknown Rx Torsemide [Demadex] 20 mg PO DAILY #30 tablet 02/08/18 01/29/19 Unknown Rx Insulin Regular,Human U-500(Nf See Protocol SC TID 05/19/18 01/29/19 Unknown History [HumuLIN R] Enalapril Maleate [Vasotec] 5 mg PO DAILY 01/29/19 01/29/19 Unknown History ALBUTEROL Inhaler (OR & NICU) 2 puff IH QID PRN #1 inhalation 01/31/19 Unknown Rx [ProAir HFA Inhaler] ALBUTEROL NEB's [Proventil 0.083% 2.5 mg IH TID PRN #1 box 01/31/19 Unknown Rx NEBS] Albuterol Sulfate [Albuterol 0.63% 0.63 mg IH TID PRN #10 vial 01/31/19 Unknown Rx NEBS] Ipratropium [Atrovent NEB] 0.5 mg IH Q4HR PRN #30 nebu 01/31/19 Unknown Rx Nicotine [Habitrol] 14 mg TD QDAY #14 patch 01/31/19 Unknown Rx Prednisone [predniSONE 10 mg 10 mg PO .TAPER #1 tab.ds.pk 01/31/19 Unknown Rx (6-Day Pack, 21 Tabs)] Active Medications: Generic Name Dose Route Start Last Admin Trade Name Freq PRN Reason Stop Dose Admin Acetaminophen 650 mg 01/29/19 09:40 01/29/19 10:14 Tylenol PO 650 mg Q4H PRN Administration Headache Albuterol 2.5 mg 01/29/19 02:43 01/29/19 04:44 Proventil IH 2.5 mg Q4HRT PRN Administration Shortness Of Breath Albuterol/Ipratropium 1 ampul 01/30/19 00:00 01/31/19 09:35 Duoneb *Not For Prn Use* IH 1 ampul Q4HRT ALEXY Administration Aspirin 325 mg 01/29/19 10:00 01/30/19 10:33 Aspirin PO 325 mg DAILY ALEXY Administration Atorvastatin Calcium 40 mg 01/29/19 22:00 01/30/19 21:57 Lipitor PO 40 mg QHS ALEXY Administration Budesonide 0.5 mg 01/29/19 08:00 01/31/19 09:35 Pulmicort IH 0.5 mg Q12HRT ALEXY Administration Carvedilol 25 mg 01/29/19 10:00 01/30/19 21:58 Coreg PO 25 mg BID ALEXY Administration Dextrose 50 ml 01/29/19 02:52 D50w (25gm) Syringe IV PRN PRN Hypoglycemia Digoxin 0.125 mg 01/29/19 17:00 01/30/19 17:32 Lanoxin PO 0.125 mg DAILY@1700 ALEXY Administration Enoxaparin Sodium 40 mg 01/29/19 10:00 01/30/19 10:33 Lovenox SUB-Q 40 mg QDAY [facility] Administration Guaifenesin 600 mg 01/29/19 03:00 01/30/19 22:08 Mucinex Er PO 600 mg BID [facility] Administration Levofloxacin/Dextrose 500 mg in 100 mls @ 100 mls/hr 01/30/19 10:00 01/30/19 10:33 Levaquin 500mg/100ml IV 100 mls/hr Q24HR [facility] Administration Protocol Insulin Glargine 22 units 01/30/19 20:00 01/30/19 20:00 Lantus SUB-Q Not Given TID [facility] Insulin Human Lispro 0 unit 01/29/19 07:30 01/30/19 22:00 Humalog SUB-Q Not Given ACHS [facility] Protocol Methylprednisolone Sodium Succinate 125 mg 01/29/19 06:00 01/31/19 06:00 Solu-Medrol IV 125 mg Q8HR [facility] Administration Nicotine 14 mg 01/29/19 10:00 01/30/19 10:33 Habitrol TD Not Given QDAY [facility] Oxycodone/Acetaminophen 1 tab 01/30/19 09:53 01/30/19 22:05 Percocet 5/325 PO 1 tab Q6H PRN Administration Pain, Moderate (4-6)
[2019-01-31] MEDS: LOVENOX SUB-Q SCH (09:58)
[2019-01-31] MEDS: ASPIRIN PO SCH (09:59)
[2019-01-31] MEDS: COREG PO SCH (09:59)
[2019-01-31] MEDS: LANTUS SUB-Q SCH (09:59)
[2019-01-31] MEDS: HABITROL TD SCH (09:59)
[2019-01-31] MEDS: LEVAQUIN 500MG/100ML 500 MG/100 ML BAG IV SCH (09:59)
[2019-01-31] MEDS: MUCINEX ER PO SCH (09:59)
[2019-01-31] MEDS: HumaLOG SUB-Q SCH (09:59)
--- NOTE | 2019-01-31 10:00 | Discharge Summary ---
Providers - Providers Date of Admission: 01/29/19 03:14 Attending physician: FRAN MARTEL MD 01/29/19 02:52 Consult to Dietitian/Nutrition [CONS] Routine Physician Instructions: Reason For Exam: Reason for Consult: Diet education 01/29/19 03:20 Consult to Physician [CONS] Routine Comment: Consulting Provider: PHILIPP GRANT Physician Instructions: Reason For Exam: jeri Primary care physician: EVER HERNANDEZ Hospitalization Reason for admission: Cute hypoxic respiratory failure, COPD exacerbation Condition: Stable Hospital course: 43-year-old female who is an ongoing smoker with history of asthma, hypertension, diabetes, severe obesity, CVA, cardiomyopathy S/P AICD presents to [facility] ED with complaints of shortness of breath and difficulty in breathing that was unrelieved by oral steroids, nebulizer treatment and oral antibiotics for the past day. JERI; resolved with gentle hydration Leukocytosis; steroid induced, patient was on steroid before admission. DM; uncontrolled. Medications adjusted and counselled. Tobacco Abuse; patient was counselled extensively and patient was given nicotine at discharge. Obesity; counselled about diet and weight loss. Obstructive sleep apnea; Noncompliant with nocturnal use of CPAP at home. patient will follow with Pulmonary as an o/P. Hypertension; continue BP medications Hx cardiomyopathy; s/p AICD Disposition: DC-01 TO HOME OR SELFCARE Time spent for discharge: 32 minutes - Discharge Diagnoses (1) JERI (acute kidney injury) Status: Acute (2) Acute exacerbation of COPD with asthma Status: Acute (3) Diabetes Status: Acute (4) T2DM (type 2 diabetes mellitus) Status: Acute (5) AICD (automatic cardioverter/defibrillator) present Status: Chronic (6) Diabetes mellitus type 2, uncontrolled Status: Chronic Core Measure Documentation - Palliative Care Palliative Care/ Comfort Measures: Not Applicable - Core Measures Any of the following diagnoses?: none Exam - Physical Exam Narrative exam: Not in cardiopulmonary distress. The patient is morbidly obese. Vital signs as documented. Head exam is unremarkable. No scleral icterus . Neck is without jugular venous distension, thyromegaly, or carotid bruits. Lungs wheezing all over the chest and decrease air entry on the bibasilar area. Cardiac exam reveals regular rate and Rhythm. Abdominal exam reveals normal bowel sounds, no masses, no organomegaly and no aortic enlargement. Extremities are nonedematous and both femoral and pedal pulses are normal. 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 No focal weakness. - Constitutional Vitals: Temp Pulse Resp BP Pulse Ox 98.1 F 78 17 104/35 95 01/31/19 04:14 01/31/19 04:16 01/31/19 04:16 01/31/19 04:14 01/31/19 00:09 Plan Activity: no restrictions Weight Bearing Status: Full Weight Bearing Diet: low cholesterol, low salt Follow up with: VEER HERNANDEZ MD [Primary Care Provider] - 7 Days Forms: Discharge Signature Page Prescriptions: Albuterol Sulfate [Albuterol 0.63% NEBS] 0.63 mg IH TID PRN #10 vial PRN Reason: Wheezing Ipratropium [Atrovent NEB] 0.5 mg IH Q4HR PRN #30 nebu PRN Reason: Shortness Of Breath Nicotine [Habitrol] 14 mg TD QDAY #14 patch Prednisone [predniSONE 10 mg (6-Day Pack, 21 Tabs)] 10 mg PO .TAPER #1 tab.ds.pk ALBUTEROL Inhaler (OR & NICU) [ProAir HFA Inhaler] 2 puff IH QID PRN #1 inhalation PRN Reason: Shortness Of Breath ALBUTEROL NEB's [Proventil 0.083% NEBS] 2.5 mg IH TID PRN #1 box PRN Reason: Wheezing
[2019-01-31] MEDS: PERCOCET 5/325 PO PRN (10:06)
== END 2019-01-31 11:30 | disposition home or self-care (01) | DRG 190 ==
LOC: ED 20:39 → 4A 01-29 03:14
PROVIDERS: ADMIT Internal Medicine; ATTEND Internal Medicine
PROC: 5A09357 Assistance with Respiratory Ventilation, Less than 24 Consecutive Hours, Continuous Positive Airway Pressure (ICD-10-PCS; principal; 2019-01-29)
PROC: 5A09357 Assistance with Respiratory Ventilation, Less than 24 Consecutive Hours, Continuous Positive Airway Pressure (ICD-10-PCS; 2019-01-31)
DX: J44.1 Chronic obstructive pulmonary disease with (acute) exacerbation (principal); N17.0 Acute kidney failure with tubular necrosis; J45.901 Unspecified asthma with (acute) exacerbation; Z68.43 Body mass index [BMI] 50.0-59.9, adult; I42.9 Cardiomyopathy, unspecified; G47.33 Obstructive sleep apnea (adult) (pediatric); I10 Essential (primary) hypertension; E66.01 Morbid (severe) obesity due to excess calories; E11.9 Type 2 diabetes mellitus without complications; F17.210 Nicotine dependence, cigarettes, uncomplicated; Z71.6 Tobacco abuse counseling; Z95.810 Presence of automatic (implantable) cardiac defibrillator; Z79.4 Long term (current) use of insulin; Z79.51 Long term (current) use of inhaled steroids; Z79.82 Long term (current) use of aspirin; Z88.8 Allergy status to other drugs, medicaments and biological substances; Z91.040 Latex allergy status; Z86.73 Personal history of transient ischemic attack (TIA), and cerebral infarction without residual deficits; Z90.710 Acquired absence of both cervix and uterus; Z90.49 Acquired absence of other specified parts of digestive tract
CPT/HCPCS: 36415; 71046; 80048; 82962; 83036; 84100; 84484; 85025; 85610; 85730; 93005; 93010; 94640; 94644; 94660; 96360; 96374; 96375; 99406; G0378; A9270-GY; J1650; J1815; J1885; J1956; J2930

== ENCOUNTER 2019-02-13 09:51 | Emergency (ER) | payer MEDICARE ==
--- NOTE | 2019-02-13 10:35 | Emergency Department Report ---
ED Lower Extremity HPI - General Chief Complaint: Extremity Injury, Lower Stated Complaint: RT KNEE SWELLING/PAIN Time Seen by Provider: 02/13/19 10:33 Source: patient Mode of arrival: Wheelchair Limitations: No Limitations - History of Present Illness Initial Comments: Pt. c/o right leg injury/pain and swelling. MD Complaint: knee injury -: Gradual, days(s) (1) Injury: Knee: Right Type of Injury: blunt Place: home Severity scale (0 -10): 5 Improves With: nothing Worsens With: nothing Context: fall Associated Symptoms: swelling - Related Data Home Medications Medication Instructions Recorded Confirmed Last Taken Insulin Regular,Human U-500(Nf See Protocol SC TID 05/19/18 01/29/19 Unknown [HumuLIN R] Enalapril Maleate [Vasotec] 5 mg PO DAILY 01/29/19 01/29/19 Unknown Previous Rx's Medication Instructions Recorded Last Taken Type Aspirin 325 mg PO DAILY #30 tablet 02/08/18 Unknown Rx Carvedilol [Coreg] 25 mg PO BID #60 tablet 02/08/18 Unknown Rx Digoxin [Lanoxin] 0.125 mg PO DAILY #30 tablet 02/08/18 Unknown Rx Rosuvastatin (Nf) [Crestor] 40 mg PO DAILY 30 Days tablet 02/08/18 Unknown Rx Spironolactone [Aldactone] 25 mg PO QDAY #30 tablet 02/08/18 Unknown Rx Torsemide [Demadex] 20 mg PO DAILY #30 tablet 02/08/18 Unknown Rx ALBUTEROL Inhaler (OR & NICU) 2 puff IH QID PRN #1 inhalation 01/31/19 Unknown Rx [ProAir HFA Inhaler] ALBUTEROL NEB's [Proventil 0.083% 2.5 mg IH TID PRN #1 box 01/31/19 Unknown Rx NEBS] Albuterol Sulfate [Albuterol 0.63% 0.63 mg IH TID PRN #10 vial 01/31/19 Unknown Rx NEBS] Ipratropium [Atrovent NEB] 0.5 mg IH Q4HR PRN #30 nebu 01/31/19 Unknown Rx Nicotine [Habitrol] 14 mg TD QDAY #14 patch 01/31/19 Unknown Rx Prednisone [predniSONE 10 mg 10 mg PO .TAPER #1 tab.ds.pk 01/31/19 Unknown Rx (6-Day Pack, 21 Tabs)] Cyclobenzaprine [Flexeril] 10 mg PO TID PRN #15 tablet 02/13/19 Unknown Rx Dicyclomine [Bentyl] 20 mg PO QID PRN #20 tablet 02/16/19 Unknown Rx Famotidine [Pepcid] 40 mg PO QHS #30 tablet 02/16/19 Unknown Rx Ondansetron [Zofran Odt] 4 mg PO Q8HR PRN #10 tab.rapdis 02/16/19 Unknown Rx Allergies Allergy/AdvReac Type Severity Reaction Status Date / Time latex Allergy Hives Verified 05/16/15 01:08 naproxen sodium [From Aleve] Allergy Hives Verified 05/16/15 01:08 ED Review of Systems ROS: Stated complaint: RT KNEE SWELLING/PAIN Other details as noted in HPI Comment: All other systems reviewed and negative Cardiovascular: denies: chest pain, palpitations Endocrine: denies: excessive sweating Gastrointestinal: denies: abdominal pain, nausea, vomiting Genitourinary: denies: urgency Musculoskeletal: joint swelling Skin: denies: rash ED Past Medical Hx - Past Medical History Previous Medical History?: Yes Hx Hypertension: Yes Hx CVA: Yes Hx Heart Attack/AMI: No Hx Congestive Heart Failure: Yes Hx Diabetes: Yes Hx Deep Vein Thrombosis: No Hx Pulmonary Embolism: No Hx GERD: No Hx Liver Disease: No Hx Sickle Cell Disease: No Hx Arthritis: No Hx Headaches / Migraines: No Hx Seizures: No Hx Kidney Stones: No Hx Psychiatric Treatment: No Hx Asthma: Yes Hx COPD: No Hx Tuberculosis: No Hx Dementia: No Hx HIV: No Additional medical history: 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 pre- eclampsia, sleep apnea, CPAP machine, OBESITY. - Surgical History Past Surgical History?: Yes Hx Coronary Stent: No Hx Open Heart Surgery: No Hx Pacemaker: Yes Hx Internal Defibrillator: Yes Hx Cholecystectomy: No Hx Appendectomy: Yes Hx Breast Surgery: No Additional Surgical History: hysterectomy, AICD - Social History Smoking Status: Never Smoker Substance Use Type: None - Medications Home Medications: Home Medications Medication Instructions Recorded Confirmed Last Taken Type Aspirin 325 mg PO DAILY #30 tablet 02/08/18 01/29/19 Unknown Rx Carvedilol [Coreg] 25 mg PO BID #60 tablet 02/08/18 01/29/19 Unknown Rx Digoxin [Lanoxin] 0.125 mg PO DAILY #30 tablet 02/08/18 01/29/19 Unknown Rx Rosuvastatin (Nf) [Crestor] 40 mg PO DAILY 30 Days tablet 02/08/18 01/29/19 Unknown Rx Spironolactone [Aldactone] 25 mg PO QDAY #30 tablet 02/08/18 01/29/19 Unknown Rx Torsemide [Demadex] 20 mg PO DAILY #30 tablet 02/08/18 01/29/19 Unknown Rx Insulin Regular,Human U-500(Nf See Protocol [place] TID 05/19/18 01/29/19 Unknown History [HumuLIN R] Enalapril Maleate [Vasotec] 5 mg PO DAILY 01/29/19 01/29/19 Unknown History ALBUTEROL Inhaler (OR & NICU) 2 puff IH QID PRN #1 inhalation 01/31/19 Unknown Rx [ProAir HFA Inhaler] ALBUTEROL NEB's [Proventil 0.083% 2.5 mg IH TID PRN #1 box 01/31/19 Unknown Rx NEBS] Albuterol Sulfate [Albuterol 0.63% 0.63 mg IH TID PRN #10 vial 01/31/19 Unknown Rx NEBS] Ipratropium [Atrovent NEB] 0.5 mg IH Q4HR PRN #30 nebu 01/31/19 Unknown Rx Nicotine [Habitrol] 14 mg TD QDAY #14 patch 01/31/19 Unknown Rx Prednisone [predniSONE 10 mg 10 mg PO .TAPER #1 tab.ds.pk 01/31/19 Unknown Rx (6-Day Pack, 21 Tabs)] Cyclobenzaprine [Flexeril] 10 mg PO TID PRN #15 tablet 02/13/19 Unknown Rx Dicyclomine [Bentyl] 20 mg PO QID PRN #20 tablet 02/16/19 Unknown Rx Famotidine [Pepcid] 40 mg PO QHS #30 tablet 02/16/19 Unknown Rx Ondansetron [Zofran Odt] 4 mg PO Q8HR PRN #10 tab.rapdis 02/16/19 Unknown Rx ED Physical Exam - General Limitations: No Limitations General appearance: alert - Head Head exam: Present: atraumatic, normocephalic - Eye Eye exam: Present: normal appearance, PERRL, EOMI Pupils: Present: normal accommodation - ENT ENT exam: Present: normal exam - Neck Neck exam: Present: normal inspection - Respiratory Respiratory exam: Present: normal lung sounds bilaterally - Cardiovascular Cardiovascular Exam: Present: regular rate, normal rhythm - GI/Abdominal GI/Abdominal exam: Present: soft - Extremities Exam Extremities exam: Present: full ROM, tenderness, joint swelling. Absent: calf tenderness - Back Exam Back exam: Present: normal inspection ED Course Vital Signs 02/13/19 02/13/19 10:09 12:33 Temperature 98.6 F 98.4 F Pulse Rate 84 84 Respiratory 16 18 Rate Blood Pressure 126/68 108/64 [Left] O2 Sat by Pulse 96 100 Oximetry Critical care attestation.: If time is entered above; I have spent that time in minutes in the direct care of this critically ill patient, excluding procedure time. ED Disposition Clinical Impression: Effusion, right knee Disposition: DC-01 TO HOME OR SELFCARE Is pt being admited?: No Does the pt Need Aspirin: No Condition: Stable Prescriptions: Cyclobenzaprine [Flexeril] 10 mg PO TID PRN #15 tablet PRN Reason: Muscle Spasm Referrals: BELINDA SALVADOR MD [Primary Care Provider] - 3-5 Days JACK HILL MD [Referring] - 3-5 Days
[2019-02-13] MEDS ORDERED: HYDROcodone/ACETAMINOPHEN 5-325 MG TAB PO ONE (10:50)
--- NOTE | 2019-02-13 11:17 | XRay Report ---
RIGHT KNEE 3 VIEWS INDICATION: right knee pain. COMPARISON: No relevant prior imaging study available. FINDINGS: There is a moderate to large joint effusion. No acute, displaced fracture is seen. No acute, displace d fracture is seen. There is mild joint space narrowing at the medial tibiofemoral compartment. IMPRESSION: 1. Joint effusion. MRI would be useful to assess for internal derangement. Signer Name: Kiel Lynch MD Signed: 02/13/2019 11:12 AM Workstation Name: [id number]
[2019-02-13 12:34] VITALS: BP 108/64
== END 2019-02-13 12:34 | disposition home or self-care (01) ==
LOC: ED 09:51
DX: M25.461 Effusion, right knee (principal); I11.0 Hypertensive heart disease with heart failure; I50.9 Heart failure, unspecified; E11.9 Type 2 diabetes mellitus without complications; J45.909 Unspecified asthma, uncomplicated; G47.30 Sleep apnea, unspecified; E66.9 Obesity, unspecified; Z68.42 Body mass index [BMI] 45.0-49.9, adult; Z86.73 Personal history of transient ischemic attack (TIA), and cerebral infarction without residual deficits; Z95.0 Presence of cardiac pacemaker; Z90.49 Acquired absence of other specified parts of digestive tract; Z90.710 Acquired absence of both cervix and uterus; Z91.040 Latex allergy status; Z79.82 Long term (current) use of aspirin; Z79.899 Other long term (current) drug therapy; Z88.8 Allergy status to other drugs, medicaments and biological substances
CPT/HCPCS: 99283

== ENCOUNTER 2019-02-16 15:20 | Emergency (ER) | payer MEDICARE ==
[2019-02-16 15:56] VITALS: BP 122/76
--- NOTE | 2019-02-16 15:56 | Event Note ---
ED Screening Note Date of service: 02/16/19 Time: 15:52 ED Screening Note: This is a 43 y.o. F. that presents to the ER with upper abdominal pain, n/v/d for 2 days. Patient states yesterday pain stopped and restarted today. Sharp and cramping pain. Reports pain is similar to when she had pancreatitis. PMH HTN, COPD, DM2, pancreatitis This initial assessment/diagnostic orders/clinical plan/treatment(s) is/are subject to change based on patients health status, clinical progression and re- assessment by fellow clinical providers in the ED. Further treatment and workup at subsequent clinical providers discretion. Patient/guardian urged not to elope from the ED as their condition may be serious if not clinically assessed and managed. Initial orders include: Labs and CT of abdomen and pelvis
[2019-02-16 16:26] LABS: Basophils % (Auto) 0.3 % (0.0-1.8); Eosinophils # (Auto) 0.2 K/mm3 (0.0-0.4); Eosinophils % (Auto) 1.9 % (0.0-4.3); Hematocrit 47.6 % (30.3-42.9); Lymphocytes # (Auto) 2.4 K/mm3 (1.2-5.4); Lymphocytes % (Auto) 21.9 % (13.4-35.0); Mean Corpuscular HGB Conc 34 % (30-34); Mean Corpuscular Volume 90 fl (79-97); Monocytes # (Auto) 0.6 K/mm3 (0.0-0.8); Monocytes % (Auto) 5.2 % (0.0-7.3); Platelet Count 159 K/mm3 (140-440); Red Blood Count 5.27 M/mm3 (3.65-5.03); Red Cell Distribution Width 14.1 % (13.2-15.2)
[2019-02-16 16:46] LABS: Alanine Aminotransferase 44 units/L (7-56); BUN/Creatinine Ratio 31; Blood Urea Nitrogen 25 mg/dL (7-17); Hemolysis Index 8
[2019-02-16 17:38] LABS: Bilirubin,Urine NEG (Negative); Blood,Urine NEG (Negative); Color,Urine Yellow (Yellow); Protein,Urine <15 mg/dL mg/dL (Negative); Urobilinogen,Urine < 2.0 mg/dL (<2.0); WBC,Urine < 1.0 /HPF (0.0-6.0)
[2019-02-16] MEDS ORDERED: ONDANSETRON 4 MG/2 ML INJ IV ONE (19:00)
[2019-02-16] MEDS ORDERED: DICYCLOMINE 20 MG/2 ML INJ IM ONE (19:00)
[2019-02-16] MEDS ORDERED: PANTOPRAZOLE 40 MG INJ IV ONE (19:00)
[2019-02-16] MEDS ORDERED: SODIUM CHLORIDE 0.9% 1000 ML 1,000 ML IV ONE (19:00)
--- NOTE | 2019-02-16 19:05 | Cat Scan Report ---
CT of the abdomen and pelvis with contrast INDICATION: Upper abdominal pain COMPARISON: None available currently FINDINGS: Pacemaker leads are in place. Lung bases are clear. No effusions are seen. The liver, splee n, adrenal glands and kidneys all appear normal. Pancreas is normal as well. There is no evidence of pancreatitis or pancreatic ductal dilation. No gallbladder or biliary tree abnormality. No fluid or a denopathy in the upper abdomen. No gastric wall thickening or perigastric inflammation. CT of the pelvis shows a normal appendix. Umbilical hernia contains fat. There is no bowel obstructio n. Uterus has been removed. No pelvic fluid or adenopathy. IMPRESSION: Negative study. No pancreatitis or other acute process. Automated exposure control was utilized to diminish radiation dose. Signer Name: Fausto Aburto MD Signed: 02/16/2019 7:00 PM Workstation Name: [id number]
--- NOTE | 2019-02-16 19:45 | Emergency Department Report ---
ED N/V/D HPI - General Chief complaint: Nausea/Vomiting/Diarrhea Stated complaint: DIARRHEA/VOMIT Time Seen by Provider: 02/16/19 15:50 Source: patient Mode of arrival: Ambulatory Limitations: No Limitations - History of Present Illness Initial comments: Patient is a 43-year-old female who presents the emergency room with complaint of nausea, vomiting, diarrhea that began 3 days ago. Patient states that she has had approximately 5 episodes of each daily. She states she has associated generalized abdominal cramping and a churning sensation. She does have a burning sensation in the epigastric region. Patient states that she was just recently started on meloxicam for her knee discomfort by her primary care doctor and began to have the symptoms shortly after. She denies any urinary symptoms, fever, hematochezia, pus in the stool. she denies any sick contacts, recent travel, recent camping. pt has a past medical history of diabetes, pancre atitis, asthma, sleep apnea, pacemaker placement. - Related Data Home Medications Medication Instructions Recorded Confirmed Last Taken Insulin Regular,Human U-500(Nf See Protocol SC TID 05/19/18 01/29/19 Unknown [HumuLIN R] Enalapril Maleate [Vasotec] 5 mg PO DAILY 01/29/19 01/29/19 Unknown Previous Rx's Medication Instructions Recorded Last Taken Type Aspirin 325 mg PO DAILY #30 tablet 02/08/18 Unknown Rx Carvedilol [Coreg] 25 mg PO BID #60 tablet 02/08/18 Unknown Rx Digoxin [Lanoxin] 0.125 mg PO DAILY #30 tablet 02/08/18 Unknown Rx Rosuvastatin (Nf) [Crestor] 40 mg PO DAILY 30 Days tablet 02/08/18 Unknown Rx Spironolactone [Aldactone] 25 mg PO QDAY #30 tablet 02/08/18 Unknown Rx Torsemide [Demadex] 20 mg PO DAILY #30 tablet 02/08/18 Unknown Rx ALBUTEROL Inhaler (OR & NICU) 2 puff IH QID PRN #1 inhalation 01/31/19 Unknown Rx [ProAir HFA Inhaler] ALBUTEROL NEB's [Proventil 0.083% 2.5 mg IH TID PRN #1 box 01/31/19 Unknown Rx NEBS] Albuterol Sulfate [Albuterol 0.63% 0.63 mg IH TID PRN #10 vial 01/31/19 Unknown Rx NEBS] Ipratropium [Atrovent NEB] 0.5 mg IH Q4HR PRN #30 nebu 01/31/19 Unknown Rx Nicotine [Habitrol] 14 mg TD QDAY #14 patch 01/31/19 Unknown Rx Prednisone [predniSONE 10 mg 10 mg PO .TAPER #1 tab.ds.pk 01/31/19 Unknown Rx (6-Day Pack, 21 Tabs)] Cyclobenzaprine [Flexeril] 10 mg PO TID PRN #15 tablet 02/13/19 Unknown Rx Dicyclomine [Bentyl] 20 mg PO QID PRN #20 tablet 02/16/19 Unknown Rx Famotidine [Pepcid] 40 mg PO QHS #30 tablet 02/16/19 Unknown Rx Ondansetron [Zofran Odt] 4 mg PO Q8HR PRN #10 tab.rapdis 02/16/19 Unknown Rx Allergies Allergy/AdvReac Type Severity Reaction Status Date / Time latex Allergy Hives Verified 05/16/15 01:08 naproxen sodium [From Aleve] Allergy Hives Verified 05/16/15 01:08 ED Review of Systems ROS: Stated complaint: DIARRHEA/VOMIT Other details as noted in HPI Comment: All other systems reviewed and negative ED Past Medical Hx - Past Medical History Previous Medical History?: Yes Hx Hypertension: Yes Hx CVA: Yes Hx Heart Attack/AMI: No Hx Congestive Heart Failure: Yes Hx Diabetes: Yes Hx Deep Vein Thrombosis: No Hx Pulmonary Embolism: No Hx GERD: No Hx Liver Disease: No Hx Sickle Cell Disease: No Hx Arthritis: No Hx Headaches / Migraines: No Hx Seizures: No Hx Kidney Stones: No Hx Psychiatric Treatment: No Hx Asthma: Yes Hx COPD: No Hx Tuberculosis: No Hx Dementia: No Hx HIV: No Additional medical history: 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 pre- eclampsia, sleep apnea, CPAP machine, OBESITY. - Surgical History Past Surgical History?: Yes Hx Coronary Stent: No Hx Open Heart Surgery: No Hx Pacemaker: Yes Hx Internal Defibrillator: Yes Hx Cholecystectomy: No Hx Appendectomy: Yes Hx Breast Surgery: No Additional Surgical History: hysterectomy, AICD - Social History Smoking Status: Never Smoker Substance Use Type: None - Medications Home Medications: Home Medications Medication Instructions Recorded Confirmed Last Taken Type Aspirin 325 mg PO DAILY #30 tablet 02/08/18 01/29/19 Unknown Rx Carvedilol [Coreg] 25 mg PO BID #60 tablet 02/08/18 01/29/19 Unknown Rx Digoxin [Lanoxin] 0.125 mg PO DAILY #30 tablet 02/08/18 01/29/19 Unknown Rx Rosuvastatin (Nf) [Crestor] 40 mg PO DAILY 30 Days tablet 02/08/18 01/29/19 Unknown Rx Spironolactone [Aldactone] 25 mg PO QDAY #30 tablet 02/08/18 01/29/19 Unknown Rx Torsemide [Demadex] 20 mg PO DAILY #30 tablet 02/08/18 01/29/19 Unknown Rx Insulin Regular,Human U-500(Nf See Protocol SC TID 05/19/18 01/29/19 Unknown History [HumuLIN R] Enalapril Maleate [Vasotec] 5 mg PO DAILY 01/29/19 01/29/19 Unknown History ALBUTEROL Inhaler (OR & NICU) 2 puff IH QID PRN #1 inhalation 01/31/19 Unknown Rx [ProAir HFA Inhaler] ALBUTEROL NEB's [Proventil 0.083% 2.5 mg IH TID PRN #1 box 01/31/19 Unknown Rx NEBS] Albuterol Sulfate [Albuterol 0.63% 0.63 mg IH TID PRN #10 vial 01/31/19 Unknown Rx NEBS] Ipratropium [Atrovent NEB] 0.5 mg IH Q4HR PRN #30 nebu 01/31/19 Unknown Rx Nicotine [Habitrol] 14 mg TD QDAY #14 patch 01/31/19 Unknown Rx Prednisone [predniSONE 10 mg 10 mg PO .TAPER #1 tab.ds.pk 01/31/19 Unknown Rx (6-Day Pack, 21 Tabs)] Cyclobenzaprine [Flexeril] 10 mg PO TID PRN #15 tablet 02/13/19 Unknown Rx Dicyclomine [Bentyl] 20 mg PO QID PRN #20 tablet 02/16/19 Unknown Rx Famotidine [Pepcid] 40 mg PO QHS #30 tablet 02/16/19 Unknown Rx Ondansetron [Zofran Odt] 4 mg PO Q8HR PRN #10 tab.rapdis 02/16/19 Unknown Rx ED Physical Exam - General Limitations: No Limitations General appearance: alert, in no apparent distress - Head Head exam: Present: atraumatic, normocephalic - Eye Eye exam: Present: normal appearance - ENT ENT exam: Present: mucous membranes moist - Respiratory Respiratory exam: Present: normal lung sounds bilaterally. Absent: respiratory distress, wheezes, rales, rhonchi, stridor, chest wall tenderness, accessory muscle use, decreased breath sounds, prolonged expiratory - Cardiovascular Cardiovascular Exam: Present: regular rate, normal rhythm, normal heart sounds. Absent: systolic murmur, diastolic murmur, rubs, gallop - GI/Abdominal GI/Abdominal exam: Present: soft, tenderness (mild epigastric region), normal bowel sounds. Absent: distended, guarding, rebound, rigid - Neurological Exam Neurological exam: Present: alert, oriented X3 - Psychiatric Psychiatric exam: Present: normal affect, normal mood - Skin Skin exam: Present: warm, dry, intact ED Course Vital Signs 02/16/19 02/16/19 02/16/19 15:54 19:38 21:42 Temperature 97.3 F L Pulse Rate 87 85 Respiratory 20 20 16 Rate Blood Pressure 122/76 O2 Sat by Pulse 95 98 100 Oximetry ED Medical Decision Making - Lab Data Result diagrams: 02/16/19 16:09 02/16/19 16:09 Lab Results 02/16/19 02/16/19 02/16/19 Range/Units 16:09 16:09 16:09 WBC 11.0 (4.5-11.0) K/mm3 RBC 5.27 H (3.65-5.03) M/mm3 Hgb 16.0 H (10.1-14.3) gm/dl Hct 47.6 H (30.3-42.9) % MCV 90 (79-97) fl MCH 30 (28-32) pg MCHC 34 (30-34) % RDW 14.1 (13.2-15.2) % Plt Count 159 (140-440) K/mm3 Lymph % (Auto) 21.9 (13.4-35.0) % [place] % (Auto) 5.2 (0.0-7.3) % Eos % (Auto) 1.9 (0.0-4.3) % Baso % (Auto) 0.3 (0.0-1.8) % Lymph # 2.4 (1.2-5.4) K/mm3 [place] # 0.6 (0.0-0.8) K/mm3 Eos # 0.2 (0.0-0.4) K/mm3 Baso # 0.0 (0.0-0.1) K/mm3 Seg Neutrophils % 70.7 H (40.0-70.0) % Seg Neutrophils # 7.8 H (1.8-7.7) K/mm3 Sodium 137 (137-145) mmol/L Potassium 4.3 (3.6-5.0) mmol/L Chloride 98.4 (98-107) mmol/L Carbon Dioxide 23 (22-30) mmol/L Anion Gap 20 mmol/L BUN 25 H (7-17) mg/dL Creatinine 0.8 (0.7-1.2) mg/dL Estimated GFR > 60 ml/min BUN/Creatinine Ratio 31 % Glucose 204 H (65-100) mg/dL POC Glucose (70-105) Calcium 9.0 (8.4-10.2) mg/dL Total Bilirubin 1.10 (0.1-1.2) mg/dL AST 21 (5-40) units/L ALT 44 (7-56) units/L Alkaline Phosphatase 104 (35-129) units/L Total Protein 7.1 (6.3-8.2) g/dL Albumin 4.0 (3.9-5) g/dL Albumin/Globulin Ratio 1.3 % Lipase 53 (13-60) units/L HCG, Qual Negative (Negative) Urine Color (Yellow) Urine Turbidity (Clear) Urine pH (5.0-7.0) Ur Specific [place] (1.003-1.030) Urine Protein (Negative) mg/dL Urine Glucose (UA) (Negative) mg/dL Urine Ketones (Negative) mg/dL Urine Blood (Negative) Urine Nitrite (Negative) Urine Bilirubin (Negative) Urine Urobilinogen (<2.0) mg/dL Ur Leukocyte Esterase (Negative) Urine WBC (Auto) (0.0-6.0) /HPF Urine RBC (Auto) (0.0-6.0) /HPF U Epithel Cells (Auto) (0-13.0) /HPF 02/16/19 02/16/19 Range/Units 16:50 16:59 WBC (4.5-11.0) K/mm3 RBC (3.65-5.03) M/mm3 Hgb (10.1-14.3) gm/dl Hct (30.3-42.9) % MCV (79-97) fl MCH (28-32) pg MCHC (30-34) % RDW (13.2-15.2) % Plt Count (140-440) K/mm3 Lymph % (Auto) (13.4-35.0) % [place] % (Auto) (0.0-7.3) % Eos % (Auto) (0.0-4.3) % Baso % (Auto) (0.0-1.8) % Lymph # (1.2-5.4) K/mm3 [place] # (0.0-0.8) K/mm3 Eos # (0.0-0.4) K/mm3 Baso # (0.0-0.1) K/mm3 Seg Neutrophils % (40.0-70.0) % Seg Neutrophils # (1.8-7.7) K/mm3 Sodium (137-145) mmol/L Potassium (3.6-5.0) mmol/L Chloride (98-107) mmol/L Carbon Dioxide (22-30) mmol/L Anion Gap mmol/L BUN (7-17) mg/dL Creatinine (0.7-1.2) mg/dL Estimated GFR ml/min BUN/Creatinine Ratio % Glucose (65-100) mg/dL POC Glucose 173 H (70-105) Calcium (8.4-10.2) mg/dL Total Bilirubin (0.1-1.2) mg/dL AST (5-40) units/L ALT (7-56) units/L Alkaline Phosphatase (35-129) units/L Total Protein (6.3-8.2) g/dL Albumin (3.9-5) g/dL Albumin/Globulin Ratio % Lipase (13-60) units/L HCG, Qual (Negative) Urine Color Yellow (Yellow) Urine Turbidity Clear (Clear) Urine pH 5.0 (5.0-7.0) Ur Specific [place] 1.011 (1.003-1.030) Urine Protein <15 mg/dl (Negative) mg/dL Urine Glucose (UA) Neg (Negative) mg/dL Urine Ketones Neg (Negative) mg/dL Urine Blood Neg (Negative) Urine Nitrite Neg (Negative) Urine Bilirubin Neg (Negative) Urine Urobilinogen < 2.0 (<2.0) mg/dL Ur Leukocyte Esterase Neg (Negative) Urine WBC (Auto) < 1.0 (0.0-6.0) /HPF Urine RBC (Auto) 1.0 (0.0-6.0) /HPF U Epithel Cells (Auto) 2.0 (0-13.0) /HPF - Radiology Data Radiology results: report reviewed CT of the abdomen and pelvis with contrast INDICATION: Upper abdominal pain COMPARISON: None available currently FINDINGS: Pacemaker leads are in place. Lung bases are clear. No effusions are seen. The liver, spleen, adrenal glands and kidneys all appear normal. Pancreas is normal as well. There is no evidence of pancreatitis or pancreatic ductal dilation. No gallbladder or biliary tree abnormality. No fluid or adenopathy in the upper abdomen. No gastric wall thickening or perigastric inflammation. CT of the pelvis shows a normal appendix. Umbilical hernia contains fat. There is no bowel obstruction. Uterus has been removed. No pelvic fluid or adenopathy. IMPRESSION: Negative study. No pancreatitis or other acute process. Automated exposure control was utilized to diminish radiation dose. Signer Name: Fausto Aburto MD Signed: 02/16/2019 7:00 PM Workstation Name: [id number] Transcribed By: LOBO Dictated By: Fausto Aburto MD Electronically Authenticated By: Fausto Aburto MD Signed Date/Time: 02/16/19 1900 - Medical Decision Making Patient is a 43-year-old female who presents the emergency room with complaint of nausea, vomiting, diarrhea that began 3 days ago. Patient states that she has had approximately 5 episodes of each daily. She states she has associated generalized abdominal cramping and a churning sensation. She does have a burning sensation in the epigastric region. Patient states that she was just recently started on meloxicam for her knee discomfort by her primary care doctor and began to have the symptoms shortly after. She denies any urinary symptoms, fever, hematochezia, pus in the stool. she denies any sick contacts, recent travel, recent camping. pt has a past medical history of diabetes, pancreatitis, asthma, sleep apnea, pacemaker placement. vitals are normal. on exam: mild epigastric TTP, no guarding no rebound. labs are stable. CT abd pelvis: Negative study. No pancreatitis or other acute process. pt given bentyl, protonix, and zofran, and 1L of NS. Patient's symptoms improved. She was able tolerate by mouth intake while in the emergency department and had no further episodes of nausea and vomiting. pt given prescription for Bentyl, Pepcid, Zofran. advised pt to please take medication as prescribed. increase your water intake. eat a bland diet over the next several days. Return to the emergency room for any new or worsening symptoms. discussed with pt to discontinue the meloxicam for now and may take tylenol for discomfort. - Differential Diagnosis gastroenteritis, pancreatitis, adverse med rxn, PUD, GERD, gastritis Critical care attestation.: If time is entered above; I have spent that time in minutes in the direct care of this critically ill patient, excluding procedure time. ED Disposition Clinical Impression: Nausea vomiting and diarrhea, Epigastric pain Disposition: DC-01 TO HOME OR SELFCARE Is pt being admited?: No Does the pt Need Aspirin: No Condition: Stable Instructions: Acute Nausea and Vomiting (ED), Abdominal Pain (ED) Additional Instructions: please take medication as prescribed. increase your water intake. eat a bland diet over the next several days. Return to the emergency room for any new or worsening symptoms. Prescriptions: Famotidine [Pepcid] 40 mg PO QHS #30 tablet Dicyclomine [Bentyl] 20 mg PO QID PRN #20 tablet PRN Reason: abdominal cramping Ondansetron [Zofran Odt] 4 mg PO Q8HR PRN #10 tab.rapdis PRN Reason: Nausea And Vomiting Referrals: BELINDA SALVADOR MD [Primary Care Provider] - 2-3 Days Time of Disposition: 19:44 Print Language: BULGARIAN
== END 2019-02-16 21:42 | disposition home or self-care (01) ==
LOC: ED 15:20
DX: R11.2 Nausea with vomiting, unspecified (principal); R19.7 Diarrhea, unspecified; R10.13 Epigastric pain; I11.0 Hypertensive heart disease with heart failure; I50.9 Heart failure, unspecified; E11.9 Type 2 diabetes mellitus without complications; J45.909 Unspecified asthma, uncomplicated; G47.30 Sleep apnea, unspecified; E66.9 Obesity, unspecified; Z68.42 Body mass index [BMI] 45.0-49.9, adult; Z90.49 Acquired absence of other specified parts of digestive tract; Z95.0 Presence of cardiac pacemaker; Z90.710 Acquired absence of both cervix and uterus; Z91.040 Latex allergy status; Z88.8 Allergy status to other drugs, medicaments and biological substances; Z79.899 Other long term (current) drug therapy; Z79.4 Long term (current) use of insulin; Z79.82 Long term (current) use of aspirin
CPT/HCPCS: 36415; 74177; 80053; 81001; 82962; 83690; 84703; 85025; 96361; 96372; 96374; 96375; 99284; C9113; J0500; J2405; J7030; Q9967

== ENCOUNTER 2019-02-24 08:21 | Outpatient (CLI) | payer MEDICARE ==
[2019-02-27 13:31] LABS: Vitamin D, 25-OH, D2 <4 ng/mL
== END 2019-02-24 08:22 | disposition home or self-care (01) ==
LOC: LAB 08:21
PROVIDERS: ATTEND Internal Medicine
DX: E11.9 Type 2 diabetes mellitus without complications (principal); E78.5 Hyperlipidemia, unspecified; E55.9 Vitamin D deficiency, unspecified; I11.0 Hypertensive heart disease with heart failure; I50.9 Heart failure, unspecified; I25.10 Atherosclerotic heart disease of native coronary artery without angina pectoris; Z90.89 Acquired absence of other organs; Z90.710 Acquired absence of both cervix and uterus
CPT/HCPCS: 36415; 80061; 82306; 83036

== ENCOUNTER 2019-06-02 08:53 | Outpatient (CLI) | payer MEDICARE ==
[2019-06-02 13:40] LABS: Chol/HDL Ratio 2.81 %
== END 2019-06-02 08:54 | disposition home or self-care (01) ==
LOC: LAB 08:53
PROVIDERS: ATTEND Internal Medicine
DX: E11.9 Type 2 diabetes mellitus without complications (principal); E78.5 Hyperlipidemia, unspecified
CPT/HCPCS: 36415; 80061; 83036